=== PATIENT | male | born 1985 | race Caucasian/White ===

== ENCOUNTER 2019-09-22 08:30 | Outpatient (CLI) | payer OTHER, SELFPAY ==
[2019-09-22 08:44] LABS: Basophils Absolute Auto 0.02 K/mm3 (0.00-0.10); Basophils Percent Auto 0.4 % (0.0-1.0); Eosinophils Absolute Auto 0.15 K/mm3 (0.02-0.50); Eosinophils Percent Auto 2.9 % (1.0-6.0); Hematocrit 43.5 % (40.0-54.0); Hemoglobin 15.5 g/dL (14.0-18.0); Immature Granulocyte Absolute 0.01 K/mm3 (0.00-0.00); Immature Granulocyte Percent A 0.2 % (0.0-0.0); Immature Platelet Fraction Pct 3.4 % (1.0-7.0); Lymphocytes Absolute Auto 2.04 K/mm3 (1.10-4.50); Lymphocytes Percent Auto 39.2 % (18.0-42.0); Mean Corpuscular HGB Conc 35.6 g/dL (32.0-36.0); Mean Corpuscular Hemoglobin 31.7 pg (27.0-31.0); Monocytes Absolute Auto 0.38 K/mm3 (0.10-0.90); Monocytes Percent Auto 7.3 % (2.0-11.0); Neutrophils Absolute Auto 2.6 K/mm3 (1.7-7.2); Platelet Count Result 109 K/mm3 (150-420); Red Blood Count 4.89 M/mm3 (4.70-6.10); Red Cell Distribution Width 12.1 % (11.6-14.4); White Blood Count 5.2 K/mm3 (4.8-10.8)
[2019-09-22 08:45] LABS: Add Urine Microscopic? YES; Appearance Urine Clear (Clear); Bilirubin Urine Negative (Negative); Blood Urine Negative (Negative); Color Urine Yellow (Yellow); Glucose Urine UA Negative (Negative); Ketones Urine Negative (Negative); Leukocyte Esterase Ur Negative LEU/UL (Negative); Nitrate Urine Negative (Negative); Protein Urine Trace (Negative); Specific Grav Ur 1.025 (1.010-1.020)
[2019-09-22 09:06] LABS: Bacteria Urine 2+ /hpf; Mucus Urine Few /lpf; RBC Urine 0-2 /hpf (0-2); Squamous Epithelial Cell Urine Few /hpf (Few); WBC Urine 0-3 /hpf (0-3)
[2019-09-22 09:09] LABS: Hemoglobin A1C 7.3 % (<5.7)
[2019-09-22 09:36] LABS: Alanine Aminotransferase 116 U/L (16-63); Albumin Level 3.6 g/dL (3.4-5.0); Alkaline Phosphatase 78 U/L (46-116); Anion Gap 10.8 mmol/L (7-16); Aspartate Amino Transferase 93 U/L (15-37); Bilirubin,Total 1.9 mg/dL (0.00-1.00); Blood Urea Nitrogen 6 mg/dL (7-18); Calcium 8.5 mg/dL (8.5-10.1); Carbon Dioxide 29 mmol/L (21-32); Chloride 104 mmol/L (98-108); Cholesterol 96 mg/dL (0-200); Estimated Glomerular Filt Rate > 60; Glucose 167 mg/dL (70-99); HDL Direct 18 mg/dL (40-60); LDL Cholesterol Calculated 6 mg/dL (<130); Osmolality Calculated 291 mOsm/kg (285-295); Potassium 3.8 mmol/L (3.5-5.1); Sodium 140 mmol/L (136-145); Thyroid Stimulating Hormone 2.28 uIU/mL (0.36-3.74); Total Protein 7.8 g/dL (6.4-8.2); Triglycerides 359 mg/dL (0-150)
== END 2019-09-22 08:31 | disposition home or self-care (01) ==
LOC: CHSLAB 08:35
PROVIDERS: PCP Internal Medicine; Visit Provider Internal Medicine
DX: Z00.00 Encounter for general adult medical examination without abnormal findings (principal); R94.5 Abnormal results of liver function studies; R73.01 Impaired fasting glucose; E78.5 Hyperlipidemia, unspecified
CPT/HCPCS: 36415; 80053; 80061; 81001; 83036; 84443; 85025

== ENCOUNTER 2020-01-29 14:48 | Outpatient (RCR) | payer OTHER, SELFPAY ==
--- NOTE | 2020-01-29 13:44 | PTOPEVAL ---
Thank you for referring Warren Griffin to [facility] [place] [facility] The patient is scheduled to be seen for therapy? __3__x/week for 9 visits. Please review, sign, date and return this plan of care KAYLYNN. I agree with and certify that the following plan of care is medically necessary. Referring Physician Date Admitting Provider: Attending Provider: Ted Guo MD Referring Provider: *PT Outpatient Evaluation Start: 01/29/20 13:01 Freq: Status: Active Protocol: Document 01/29/20 13:01 FABIANA (Rec: 01/29/20 13:37 [email or web address] [id number]) Therapy Assessment Status Assessment Status Assessment Status Evaluation Evaluation Information Problem Diagnosis back pain right L2-3 radiculopathy Onset 01/12/20 Subjective Information pt. reports hx of on/off back Query Text:As Reported By Patient/ pain. He states that he was Family moving a deer out of the joel in December and felt increase in pain. He describes his pain on the right side of the low back and wrapping to the front of the right thigh. He states that the pain is not constant. He recalls no specific activity that increases his pain. He reports that walking on flat ground does not increase his pain. He reports that he has been off work for 2 weeks due to the pain. He states that his goal is to decrease his pain and return to work. 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 saw the chiropractor with Comments little relief. He recieved manipulation and US while at the chiropractor. Pain Assessment Pain Scale Pain Scale Used Numeric (1 - 10) Self Report Pain Assessment R
== END 2020-02-23 11:24 | disposition home or self-care (01) ==
LOC: CHSPT 14:48
PROVIDERS: PCP Internal Medicine; Visit Provider Internal Medicine
DX: M54.9 Dorsalgia, unspecified (principal); M54.16 Radiculopathy, lumbar region
CPT/HCPCS: 97014; 97110; 97161; G0283

== ENCOUNTER 2020-02-01 13:47 | Outpatient (RCR) | payer OTHER, SELFPAY | END 2020-04-23 13:16 | disposition home or self-care (01) | LOC: ANHDMC 13:47 | PROVIDERS: PCP Internal Medicine; Visit Provider Internal Medicine | DX: E11.9 Type 2 diabetes mellitus without complications (principal); Z71.89 Other specified counseling | CPT/HCPCS: G0108 ==

== ENCOUNTER 2020-02-23 07:26 | Outpatient (CLI) | payer OTHER, SELFPAY ==
--- NOTE | ~2020-02-23 | US_ITS ---
US abdomen limited 02/23/2020 08:10 Indication: Cirrhosis of the liver Procedure: High-resolution Limited abdominal ultrasound Comparison: Ultrasound dated 09/29/2013. Findings: There is fatty infiltration of the liver. Limited visualization the pancreas is unremarkabl e. There is normal directional flow in the portal vein. Gallbladder is not identified, possibly surgi jolie absent. Clinically correlate. Common bile duct measures 4.7 mm. IVC is patent. Impression: 1: Fatty infiltration of the liver. Reviewed, dictated and finalized at location B. FINISHER Impression: 1: Fatty infiltration of the liver.
[2020-02-23 07:53] LABS: Basophils Absolute Auto 0.02 K/mm3 (0.00-0.10); Basophils Percent Auto 0.5 % (0.0-1.0); Eosinophils Absolute Auto 0.08 K/mm3 (0.02-0.50); Eosinophils Percent Auto 1.9 % (1.0-6.0); Hematocrit 43.2 % (40.0-54.0); Hemoglobin 14.9 g/dL (14.0-18.0); Immature Granulocyte Absolute 0.01 K/mm3 (0.00-0.00); Immature Granulocyte Percent A 0.2 % (0.0-0.0); Lymphocytes Absolute Auto 1.73 K/mm3 (1.10-4.50); Lymphocytes Percent Auto 41.6 % (18.0-42.0); Mean Corpuscular HGB Conc 34.5 g/dL (32.0-36.0); Mean Corpuscular Hemoglobin 30.9 pg (27.0-31.0); Mean Corpuscular Volume 89.6 fL (78.0-102.0); Mean Platelet Volume 10.4 fl (8.7-11.0); Monocytes Percent Auto 7.2 % (2.0-11.0); Neutrophils Percent Auto 48.6 % (50.0-70.0); Platelet Count Result 101 K/mm3 (150-420); Red Blood Count 4.82 M/mm3 (4.70-6.10); Red Cell Distribution Width 12.1 % (11.6-14.4); White Blood Count 4.2 K/mm3 (4.8-10.8)
[2020-02-23 08:05] LABS: INR 1.1; Prothrombin Time 12.6 Seconds (9.50-12.10)
[2020-02-23 09:29] LABS: Alanine Aminotransferase 83 U/L (16-63); Albumin Level 3.8 g/dL (3.4-5.0); Alkaline Phosphatase 62 U/L (46-116); Anion Gap 10 mmol/L (8-16); Aspartate Amino Transferase 68 U/L (15-37); Bilirubin,Total 2.5 mg/dL (0.00-1.00); Blood Urea Nitrogen 10 mg/dL (7-18); Calcium 8.9 mg/dL (8.5-10.1); Carbon Dioxide 28 mmol/L (21-32); Chloride 104 mmol/L (98-108); Estimated Glomerular Filt Rate > 60; Ferritin 188 ng/mL (26-388); GGT 89 U/L (15-85); Glucose 111 mg/dL (70-99); Iron 138 ug/dL (65-175); Osmolality Calculated 294 mOsm/kg (285-295); Percent Iron Saturation 39 % (12-57); Potassium 3.9 mmol/L (3.5-5.1); Sodium 142 mmol/L (136-145); Total Protein 7.8 g/dL (6.4-8.2)
[2020-02-27 18:26] LABS: Hepatitis B Core Ab Total Nonreactive (Nonreactive)
[2020-02-28 10:53] LABS: Mitochondrial (M2) Ab (IgG) <=20.0 U (<=20.0)
[2020-02-28 10:56] LABS: Actin Antibody (IgG) <20 U (<20)
[2020-02-28 12:03] LABS: Alpha-1-Antitrypsin, QN 150 mg/dL (83-199); Ceruloplasmin 25 mg/dL (18-36)
[2020-02-28 19:36] LABS: Hepatitis B Surface Antibody Nonreactive (Nonreactive); Hepatitis B Surface Antigen Nonreactive (Nonreactive); Hepatitis C Signal to Cutoff 0.02 ratio (<1.00); Hepatitis C Virus Antibody Nonreactive (Nonreactive)
[2020-02-29 07:49] LABS: LKM 1 Antibody <=20.0 U (<=20.0)
[2020-03-01 21:13] LABS: Alpha Fetoprotein Tumor Marker 10.8 ng/mL (<6.1)
== END 2020-02-23 07:27 | disposition home or self-care (01) ==
PROVIDERS: PCP Internal Medicine
DX: K74.60 Unspecified cirrhosis of liver (principal); K75.81 Nonalcoholic steatohepatitis (NASH); R74.8 Abnormal levels of other serum enzymes
CPT/HCPCS: 36415; 76705; 80053; 82103; 82105; 82390; 82728; 82977; 83516; 83520; 83540; 83550; 85025; 85610; 86038; 86376; 86704; 86706

== ENCOUNTER 2020-06-07 12:25 | Outpatient (CLI) | payer OTHER, SELFPAY ==
[2020-06-07 12:42] LABS: Basophils Absolute Auto 0.02 K/mm3 (0.00-0.10); Basophils Percent Auto 0.4 % (0.0-1.0); Eosinophils Absolute Auto 0.09 K/mm3 (0.02-0.50); Eosinophils Percent Auto 1.9 % (1.0-6.0); Hematocrit 43.3 % (40.0-54.0); Hemoglobin 15.2 g/dL (14.0-18.0); Immature Granulocyte Absolute 0.01 K/mm3 (0.00-0.00); Immature Granulocyte Percent A 0.2 % (0.0-0.0); Immature Platelet Fraction Pct 4.3 % (1.0-7.0); Lymphocytes Percent Auto 35.1 % (18.0-42.0); Mean Corpuscular HGB Conc 35.1 g/dL (32.0-36.0); Mean Corpuscular Hemoglobin 30.8 pg (27.0-31.0); Mean Corpuscular Volume 87.7 fL (78.0-102.0); Mean Platelet Volume 10.6 fl (8.7-11.0); Monocytes Absolute Auto 0.39 K/mm3 (0.10-0.90); Monocytes Percent Auto 8.1 % (2.0-11.0); Neutrophils Absolute Auto 2.6 K/mm3 (1.7-7.2); Neutrophils Percent Auto 54.3 % (50.0-70.0); Platelet Count Result 96 K/mm3 (150-420); Red Blood Count 4.94 M/mm3 (4.70-6.10); Red Cell Distribution Width 12.1 % (11.6-14.4); White Blood Count 4.8 K/mm3 (4.8-10.8)
[2020-06-07 13:12] LABS: INR 1.2; Prothrombin Time 12.5 Seconds (9.50-12.10)
[2020-06-07 13:15] LABS: Alanine Aminotransferase 91 U/L (16-63); Albumin Level 3.8 g/dL (3.4-5.0); Alkaline Phosphatase 69 U/L (46-116); Anion Gap 9 mmol/L (8-16); Aspartate Amino Transferase 69 U/L (15-37); Bilirubin,Total 2.6 mg/dL (0.00-1.00); Blood Urea Nitrogen 10 mg/dL (7-18); Calcium 8.6 mg/dL (8.5-10.1); Carbon Dioxide 29 mmol/L (21-32); Chloride 100 mmol/L (98-108); Estimated Glomerular Filt Rate > 60; Glucose 180 mg/dL (70-99); Osmolality Calculated 290 mOsm/kg (285-295); Potassium 3.9 mmol/L (3.5-5.1); Sodium 138 mmol/L (136-145); Total Protein 7.8 g/dL (6.4-8.2)
== END 2020-06-07 12:26 | disposition home or self-care (01) ==
LOC: CHSLAB 12:30
PROVIDERS: PCP Internal Medicine
DX: R94.5 Abnormal results of liver function studies (principal); K74.60 Unspecified cirrhosis of liver
CPT/HCPCS: 36415; 80053; 85025; 85055; 85610

== ENCOUNTER 2020-06-10 15:11 | Outpatient (CLI) | payer OTHER, SELFPAY ==
--- NOTE | ~2020-06-10 | CT_ITS ---
EXAMINATION: CT abdomen pelvis wo con EXAM DATE: 06/10/2020 15:31 INDICATION: Renal stone . Right posterior abdominal pain, gross hematuria or diarrhea. TECHNIQUE: Spiral CT of the abdomen and pelvis was performed without contrast. Axial, coronal and sag ittal images were reviewed. The dose-length product (DLP) for this examination was 1349.77 mGy-cm. The exposure was tailored according to patient size (auto mA exposure control), and iterative reconst ruction (ASIR) was used as additional dose reduction technique. There is no prior study for comparis on. FINDINGS: Right ureteropelvic junction 2 mm stone, without hydronephrosis. Perhaps this could be inte rmittently obstructing causing patient's acute symptoms? No other nephrolithiasis. There is a right r enal cyst measuring 1.5 cm. The prostate is unremarkable. The bladder is unremarkable. There is ci rrhosis with nodular liver contour, and splenomegaly, the spleen measuring 20 cm x 8 cm in greatest a xial dimensions, indicating portal hypertension. There are cholecystectomy clips. There is no retro peritoneal or pelvic lymphadenopathy. Small left inguinal and umbilical fat-containing hernias. Probable identification of a normal appendix. No pericecal inflammation. There is mild scattered colo akash diverticulosis. There is no adjacent inflammatory change to suggest diverticulitis. The stomach and small bowel are unremarkable. There is expected amount of colonic stool. No free intraperitone al gas. There are several small epicardial lymph nodes largest measuring about 5 x 9 mm. These are probably r eactive. The heart is normal in size. There are no pericardial or pleural effusions. The lung bases are unremarkable. There is lucent region within the T10 vertebral body measuring about 1 cm, probab ly with some thickened trabeculation. The margin does appear sclerotic and well-defined, consistent w ith chronic benign finding such as hemangioma. IMPRESSION: 1. Right UPJ 2 mm stone, could be intermittently obstructing given no hydronephrosis at present. 2. Cirrhosis, splenomegaly, portal hypertension. 3. Mild scattered colonic diverticulosis. Reviewed, dictated and finalized at location A. IMPRESSION: 1. Right UPJ 2 mm stone, could be intermittently obstructing given no hydronep hrosis at present. 2. Cirrhosis, splenomegaly, portal hypertension. 3. Mild scattered colonic diverticulosis.
== END 2020-06-10 15:12 | disposition home or self-care (01) ==
PROVIDERS: PCP Internal Medicine; Visit Provider Internal Medicine
DX: N20.0 Calculus of kidney (principal)
CPT/HCPCS: 74176

== ENCOUNTER 2020-06-24 19:35 | Outpatient (CLI) | payer OTHER, SELFPAY ==
--- NOTE | ~2020-06-24 | XR_ITS ---
EXAMINATION: XR abdomen/kub 1V INDICATION: Right ureteral stone and flank pain TECHNIQUE: Supine views of the abdomen were obtained on three radiographs. COMPARISON: CT, 06/10/2020 FINDINGS: The 2 mm right ureteropelvic junction stone described on the comparison CT examination is n ot definitely identified. No urolithiasis is seen. The bowel gas pattern is normal. Cholecystectomy c lips are noted in the right upper quadrant. IMPRESSION: 1. No definite urolithiasis identified. Reviewed, dictated and finalized at location A.
== END 2020-06-24 19:36 | disposition home or self-care (01) ==
LOC: CHSIMG 19:38
PROVIDERS: PCP Internal Medicine; Visit Provider Urology
DX: N20.1 Calculus of ureter (principal)
CPT/HCPCS: 74018

== ENCOUNTER 2020-06-26 08:15 | Emergency (ER) | payer OTHER, SELFPAY ==
--- NOTE | ~2020-06-26 | CT_ITS ---
EXAMINATION: CT abdomen pelvis wo con EXAM DATE: 06/26/2020 09:11 INDICATION: Kidney stone, right flank pain. Hematuria. TECHNIQUE: Spiral CT of the abdomen and pelvis was performed without contrast. Axial, coronal and sag ittal images were reviewed. The dose-length product (DLP) for this examination was 1544.53 mGy-cm. The exposure was tailored according to patient size (auto mA exposure control), and iterative reconst ruction (ASIR) was used as additional dose reduction technique. Comparison is made to prior examinati on from 06/10/2020. FINDINGS: There is mild right-sided hydronephrosis, perinephric fat stranding or there is a proximal ureteral stone measuring 2.5 mm on axial image 128. There is a 1.5 cm right renal cyst. The prostate is unremarkable. Small left inguinal fat-containing hernia. The bladder is collapsed at time of imag ing limiting evaluation. Nodular cirrhotic liver. There is moderate splenomegaly, spleen measuring a bout 20 x 8 cm. This probably indicates portal hypertension. Pancreas and adrenal glands are unremark able. There are cholecystectomy clips. There is no retroperitoneal or pelvic lymphadenopathy. Smal l umbilical fat-containing hernia. The appendix is not positively visualized. There is no pericecal inflammatory change to suggest appe ndicitis. There is mild scattered colonic diverticulosis. There is no adjacent inflammatory change t o suggest diverticulitis. The stomach and small bowel are unremarkable. There is expected amount of colonic stool. No free intraperitoneal gas. The heart is normal in size. There are no pericardia l or pleural effusions. The lung bases are unremarkable. There are no osteoblastic or osteolytic le sions identified. IMPRESSION: 1. Interval migration of previously seen right UPJ 2.5 mm stone about 2 cm into the proximal right u reter. Development of mild obstructive nephropathy. 2. Cirrhosis, splenomegaly, portal hypertension. 3. Mild colonic diverticulosis. Reviewed, dictated and finalized at location A. IMPRESSION: 1. Interval migration of previously seen right UPJ 2.5 mm stone about 2 cm int o the proximal right ureter. Development of mild obstructive nephropathy. 2. Cirrhosis, splenomegaly, portal hypertension. 3. Mild colonic diverticulosis.
[2020-06-26 08:25] VITALS: BP 175/94; PULSE 102; RESP 20; TEMP 36.7; O2SAT 98
--- NOTE | 2020-06-26 08:50 | ED.ABDPAIN ---
HPI - Abdominal Pain General Chief Complaint: Abdominal Pain Stated Complaint: kidney stone Time Seen by Provider: 06/26/20 08:39 Source: patient Mode of arrival: ambulatory Limitations: no limitations History of Present Illness HPI narrative: Patient is 34 years old white male, morbidly obese presents with right flank pain that started 4 weeks ago, CT scan of the abdomen and pelvis 2 weeks ago showed 2 mm stone right side, patient been on tramadol with some relief, pain got worse at 4 AM. Associated with nausea. Patient denies any fever, chills, vomiting, diarrhea, constipation Related Data Home Medications Medication Instructions Recorded Confirmed fluticasone propionate INTRANASAL 06/26/20 06/26/20 lisinopril-hydrochlorothiazide tablet 06/26/20 metformin mg PO 06/26/20 montelukast mg 06/26/20 nortriptyline 06/26/20 tramadol mg 06/26/20 verapamil mg PO 06/26/20 Allergies Allergy/AdvReac Type Severity Reaction Status Date / Time cefaclor Allergy Unknown Hives Verified 06/26/20 08:21 Penicillins Allergy Unknown Hives Verified 06/26/20 08:21 Review of Systems Review of Systems: Narrative: CONSTITUTIONAL: Denies fever, chills, or sweats. EYES: Denies visual changes, redness, or discharge. ENT: Denies rhinorrhea, congestion, sore throat, or otalgia. CARDIOVASCULAR: Denies chest pain, palpitations, or edema. RESPIRATORY: Denies cough or dyspnea. GASTROINTESTINAL: Denies abdominal pain, nausea, vomiting, or diarrhea. GENITOURINARY: Denies dysuria or hematuria. SKIN: Denies rash or itching. MUSCULOSKELETAL: Denies back pain, joint pain, or myalgia. NEUROLOGIC: Denies headache, numbness, or weakness. PSYCHIATRIC: Denies anxiety or depression. PMFSH Social History Social History Smoking status: Never smoker Alcohol intake: never Exam Narrative: Exam Narrative: General appearance: Well-developed, well-nourished, looks comfortable Skin: Normal color Head: Normocephalic, nontraumatic Eyes: Clear conjunctiva ENT: Oropharynx normal, ears normal, nose normal Neck: Supple, nontender Chest and respiratory: Airway patent, no respiratory distress, no accessory muscle use Heart: Regular rate/rhythm Abdomen: Soft, moderate tenderness right flank, no bruises, no swelling or rash, no organomegaly, quiet bowel sounds Vascular: Normal peripheral pulses, normal capillary refill. Musculoskeletal: Normal range of motion, nontender back Neurologic: Alert and oriented ?3, COFFEE HOST is normal as tested, no gross motor deficit Course Course Emergency Course: Improving Vital Signs Vital signs: Vital Signs Temperature 36.7 C 06/26/20 08:25 Pulse Rate 102 H 06/26/20 08:25 Respiratory Rate 20 06/26/20 08:25 Blood Pressure 175/94 H 06/26/20 08:25 Pulse Oximetry 98 06/26/20 08:25 Temperature 36.7 C 06/26/20 08:25 Pulse Rate 102 H 06/26/20 08:25 Respiratory Rate 20 06/26/20 08:25 Blood Pressure 175/94 H 06/26/20 08:25 Pulse Oximetry 98 06/26/20 08:25 MDM - Abdominal Pain MDM Narrative Medical decision making narrative: Right kidney stone is my concern, CT abdomen and pelvis without contrast, labs, IV fluid, IV Dilaudid and Zofran ordered. Further plan to follow Differential Diagnosis Differential diagnosis: Likely calculus of kidney, constipation and diverticulitis Lab Data Result diagrams: 06/26/20 08:39 06/26/20 08:39 Labs: Lab Results 06/26/20 06/26/20 06/26/20 Range/Units 08:39 08:39 08:39 WBC 5.4 (4.5-10.0) K/mm3 RBC 4.80 (4.6-6.20) M/mm3 Hgb 14.6 (14.0-18.0) g/dL Hct 41.6 L (42.0-52.0) % MCV 86.7
[2020-06-26 08:55] LABS: Basophils Percent Auto 0.4 % (0.2-1.2); Eosinophils Absolute Auto 0.2 K/mm3 (0-0.3); Eosinophils Percent Auto 2.9 % (0-4.4); Hematocrit 41.6 % (42.0-52.0); Hemoglobin 14.6 g/dL (14.0-18.0); Immature Granulocyte Absolute 0.02 K/mm3 (0.00-0.031); Immature Granulocyte Percent A 0.4 % (0-0.5); Lymphocytes Absolute Auto 1.59 K/mm3 (0.9-3.2); Lymphocytes Percent Auto 29.2 % (18.3-44.2); Mean Corpuscular HGB Conc 35.1 g/dl (32-36); Mean Corpuscular Hemoglobin 30.4 pg (26-34); Mean Corpuscular Volume 86.7 fl (80-100); Mean Platelet Volume 10.5 fl (7.4-10.4); Monocytes Absolute Auto 0.6 K/mm3 (0.1-0.6); Monocytes Percent Auto 11.2 % (2.6-8.5); Neutrophils Percent Auto 55.9 % (45.5-73.1); Platelet Count Result 96 k/mm3 (150-375); Red Cell Distribution Width 12.2 % (11.5-14.5); White Blood Count 5.4 K/mm3 (4.5-10.0)
[2020-06-26 09:04] LABS: Add Urine Microscopic? YES; Appearance Urine Cloudy (Clear); Bilirubin Urine Negative (Negative); Blood Urine 3+ (Negative); Calcium Oxalate Crystals Urine Present /hpf; Color Urine Amber (Yellow); Glucose Urine UA Negative (Negative); Ketones Urine Negative (Negative); Leukocyte Esterase Ur Negative LEU/UL (Negative); Mucus Urine Heavy /lpf; Nitrate Urine Negative (Negative); Protein Urine 2+ mg/dL (Negative); RBC Urine >75 /hpf (0-2); Specific Grav Ur 1.024 (1.001-1.035); Squamous Epithelial Cell Urine Rare /hpf (Few)
[2020-06-26 09:07] LABS: Anion Gap 5 mmol/L (8-16); Blood Urea Nitrogen 9 mg/dL (9-20); Calcium 8.6 mg/dL (8.4-10.2); Carbon Dioxide 30 mmol/L (22-30); Chloride 105 mmol/L (98-107); Estimated CRCL calculation 194 ml/min; Estimated Glomerular Filt Rate > 60; Glucose 127 mg/dL (75-110); Sodium 140 mmol/L (137-145)
[2020-06-26 09:15] LABS: Alanine Aminotransferase 70 U/L (4-50); Albumin Level 4.2 g/dL (3.5-5.1); Alkaline Phosphatase 60 U/L (38-126); Aspartate Amino Transferase 85 U/L (17-59); Bilirubin,Total 2.2 mg/dL (0.2-1.3); Lipase 100 U/L (23-300)
[2020-06-26] MEDS: KETOROLAC 30 MG/ML VIAL (*BKC) IV PUSH (11:25)
[2020-06-26] MEDS: TAMSULOSIN HCL 0.4 MG CAPSULE PO (12:45)
[2020-06-26 13:05] VITALS: BP 147/90; PULSE 99; RESP 16
== END 2020-06-26 13:05 | disposition home or self-care (01) ==
PROVIDERS: Emergency Provider Emergency Medicine; PCP Internal Medicine
DX: N13.8 Other obstructive and reflux uropathy (principal); N20.1 Calculus of ureter; E66.01 Morbid (severe) obesity due to excess calories; Z68.42 Body mass index [BMI] 45.0-49.9, adult; K57.90 Diverticulosis of intestine, part unspecified, without perforation or abscess without bleeding; K74.60 Unspecified cirrhosis of liver; K76.6 Portal hypertension; R16.1 Splenomegaly, not elsewhere classified
CPT/HCPCS: 36415; 74176; 80048; 80076; 81001; 83690; 85025; 85055; 87086; 87088; 96374; 99284; A9270; J1885

== ENCOUNTER 2020-07-02 15:12 | Outpatient (CLI) | payer OTHER, SELFPAY ==
[2020-07-02 16:42] LABS: SARS-CoV-2 RNA PCR Negative (Negative)
== END 2020-07-02 15:13 | disposition home or self-care (01) ==
LOC: CHSLAB 15:15
PROVIDERS: PCP Internal Medicine; Visit Provider Urology
DX: Z01.818 Encounter for other preprocedural examination (principal); Z20.822 Contact with and (suspected) exposure to COVID-19
CPT/HCPCS: C9803; U0003; U0005

== ENCOUNTER 2020-07-04 01:26 | Day surgery (SDC) | payer OTHER, SELFPAY ==
[2020-07-02 11:31] VITALS: BMI 46.7
[2020-07-04] VITALS (12 sets, daily range): BP systolic 135–167; BP diastolic 81–106; PULSE 96–103; RESP 14–20; TEMP 36.6–36.8; O2SAT 95–100
--- NOTE | ~2020-07-04 | XR_ITS ---
EXAMINATION: XR retrograde pyelogram RT EXAM DATE: 07/04/2020 07:56 INDICATION: Right-sided stone extraction. TECHNIQUE: Fluoroscopy used during XR retrograde pyelogram RT performed by Dr. Warren Ornelas MD . Total fluoroscopic time of 0.8 minutes. A total of 56 images obtained for the exam. The DAP for this procedure was 2197 radcm2. Cine run(s) available for review. FINDINGS: The right ureter was cannulated and injected. No focal ureteral strictures. Reportedly sto ne was extracted. Correlate with procedure note. IMPRESSION: Fluoroscopy used during XR retrograde pyelogram RT. Reviewed, dictated and finalized at location A.
[2020-07-04] MEDS: LACTATED RINGERS 1,000 ML 30 ML IV CONT (06:33)
--- NOTE | 2020-07-04 06:37 | ECG_ITS ---
Measurements Intervals [place] Rate: 97 P: 65 HI: 143 QRS: 60 QRSD: 108 T: 61 QT: 389 QTc: 494 Interpretive Statements SINUS RHYTHM INCOMPLETE RIGHT BUNDLE BRANCH BLOCK BORDERLINE ECG Electronically Signed On 07-04-2020 7:03:34 CDT by True Lewis D.O.
[2020-07-04 06:44] LABS: Glucose Point of Care 143 (65-105)
--- NOTE | 2020-07-04 06:49 | P.PNAN_ITS ---
Anes - Initial Pre Proc Eval Procedure: Operation Date: 07/04/20 07:30 Proposed Procedures p Cystoscopy, Right Ureteroscopy, Right Stone Extraction, Possible Right Stent Placement - Warren Ornelas MD Date/Time: 07/04/20 06:49 Surgeon: Warren Ornelas MD Pre Op Diagnosis: right ureteral stones Patient Data Age: 34 Gender: M Height: 6 ft Weight: 160.8 kg Last Vital Signs Temp 36.6 C 07/04/20 06:34 Pulse 96 07/04/20 06:34 Resp 16 07/04/20 06:34 BP 146/96 H 07/04/20 06:34 Pulse Ox 97 07/04/20 06:34 Allergies Allergy/AdvReac Type Severity Reaction Status Date / Time cefaclor Allergy Intermediate Hives Verified 07/04/20 06:12 Penicillins Allergy Intermediate Hives Verified 07/04/20 06:12 Home Medications Medication Instructions Recorded Confirmed Type fluticasone propionate 1 spray INTRANASAL DAILY 06/26/20 07/04/20 History lisinopril-hydrochlorothiazide 1 tablet PO DAILY 06/26/20 07/04/20 History metformin 500 mg PO DAILY 06/26/20 07/04/20 History montelukast 10 mg PO DAILY 06/26/20 07/04/20 History nortriptyline 25 mg PO DAILY 06/26/20 07/04/20 History tamsulosin [Flomax] 0.4 mg PO DAILY #10 cap 06/26/20 07/04/20 Rx verapamil 240 mg PO DAILY 06/26/20 07/04/20 History metformin 1,000 mg PO HS 07/02/20 07/04/20 History Laboratory Tests 07/04/20 06:41 POC Capillary Glucose 143 mg/dl H mg/dl (65-105) Patient hx anesthesia problems: none Family hx anesthesia problems: none [facility] Past Medical History Medical History (Updated 07/04/20 @ 06:50 by Roberto Carlos Nicole MD) Diabetes HTN (hypertension) Morbid obesity HAY (obstructive sleep apnea) Social History Social History Smoking status: Never smoker Alcohol intake: never Alcohol use details: RARE Substance use: never Substance use type: does not use Living arrangements: with family Spiritual care concerns: No Anes - Eval Final PreProcedure Day of Procedure 07/04/20 06:49 Patient weight: morbidly obese Heart: regular rate and rhythm Lungs: clear to auscultation Airway: Mallampati scale class IV Neurological: alert and oriented Last oral intake: >/= 8 hours ASA classification: III Emergent: no Anesthetic plan: proceed Anesthesia type and monitoring: general LMA and standard monitoring Informed Consent: The patient's anesthetic plan and its attendant risks and benefits were discussed with the patient/family/POA. Questions were solicited and answers provided to the satisfaction of the patient/family/POA.
--- NOTE | 2020-07-04 06:51 | WPDHPUPDATE1 ---
History and Physical Update Update Date/Time: 07/04/20 06:51 History and Physical has been reviewed, including an updated exam of the patient. There are NO changes in the patient's condition. Risks, benefits, and alternatives have been discussed and questions answered. Patient agrees to proceed with procedure.
[2020-07-04] MEDS: levoFLOXacin 500 MG/D5W 100 ML 500 MG/100 ML BAG 100 MG IVPB (07:23)
[2020-07-04] MEDS: LIDOCAINE HCL 2% GEL UROJET 10 ML PKG MUCOUS MEM (07:33)
[2020-07-04] MEDS: KETOROLAC 30 MG/ML VIAL (*BKC) IV PUSH (07:48)
--- NOTE | 2020-07-04 07:51 | P.OP_ITS ---
Procedure Note - Detailed Date of procedure: 07/04/20 Pre-op diagnosis: Right ureteral stones Post-op diagnosis: other (1. Right ureteral stone 2. Urethral meatal stenosis) Procedure performed: 1. Cystoscopy with urethral dilatation 2. Right retrograde pyelogram 3. Right ureteroscopy with stone extraction Description of procedure: The patient was brought to the operative suite where he is prepped and draped in a routine sterile fashion while in the dorsal lithotomy position after the uneventful induction of a general LMA anesthetic. I 1st had a dilate a meatal stricture from 14-24 F. Then. a 19F rigid cystoscope was placed in the bladder. There are no additional urethral strictures. His prostatic urethra measures, approximately, 1.5cm with no median lobe enlargement. The bladder mucosa was endoscopically normal without hyperemia or neoplasm. There was a single, orthotopic ureteral orifice bilaterally. A right retrograde pyelogram via an angiographic catheter reveals persistent stone in the right proximal ureter. A 0.035 glidewire was advanced into the right renal pelvis under fluoroscopy. The distal ureter was dilated with an 8F/10F ureteral dilator. Ureteroscopy was undertaken with a 7.5 F flexible u reteoscope and the stone was extracted with ease using a 1.9F Escape disposable stone basket. Due to the ease of this manipulation I opted not to place a ureteral stent. The patient's bladder was emptied and was taken to the recovery room having tolerated this procedure well. Anesthesia: GLMA Surgeon: Warren Ornelas MD Training And Development Coordinator: None Estimated blood loss (mL): 0 Drains: No Packing: No Pathology: yes (Right ureteral stone) Complications: No immediate complications Condition: stable Disposition: PACU
[2020-07-04 08:02] LABS: Glucose Point of Care 127 (65-105)
[2020-07-04] MEDS: fentaNYL CITRATE INJ (*CRX) 100 MCG/2 ML VIAL 25 MCG IV PUSH ×3 (08:28→08:36)
== END 2020-07-04 09:55 | disposition home or self-care (01) ==
PROVIDERS: PCP Internal Medicine; Visit Provider Urology
PROC: (CPT 52352; principal; 2020-07-04 07:30)
DX: N20.1 Calculus of ureter (principal); N35.911 Unspecified urethral stricture, male, meatal; I10 Essential (primary) hypertension; E11.9 Type 2 diabetes mellitus without complications; G47.33 Obstructive sleep apnea (adult) (pediatric); E66.01 Morbid (severe) obesity due to excess calories; Z68.42 Body mass index [BMI] 45.0-49.9, adult
CPT/HCPCS: 52352; 74420; 82365; 82948; 88300; 93005; A9270; C1758; C1769; J1100; J1885; J1956; J2250; J2405; J2704; J3010; J7120; Q9966

== ENCOUNTER 2020-07-29 12:44 | Outpatient (CLI) | payer OTHER, SELFPAY ==
[2020-07-29 13:56] LABS: Influenza A QL RT-PCR Negative (Negative); Influenza B QL RT-PCR Negative (Negative); SARS-CoV-2 RNA PCR Positive (Negative)
== END 2020-07-29 12:45 | disposition home or self-care (01) ==
LOC: CHSLAB 12:46
PROVIDERS: PCP Internal Medicine; Visit Provider Internal Medicine
DX: U07.1 COVID-19 (principal)
CPT/HCPCS: 87502; C9803; U0003; U0005

== ENCOUNTER 2020-08-05 17:27 | Outpatient (CLI) | payer OTHER, SELFPAY ==
--- NOTE | ~2020-08-05 | XR_ITS ---
XR chest 2V DATE: 08/05/2020 18:02 INDICATION: Cough, shortness of breath. Covid-positive. TECHNIQUE: 2 views COMPARISON: 05/12/2017 two-view chest FINDINGS: Heart size is normal. No pulmonary infiltrate or consolidation, pleural effusion or pulmona ry vascular congestion or pneumothorax. IMPRESSION: No active cardiac pulmonary disease Reviewed, dictated and finalized at location A.
[2020-08-05 17:57] LABS: Basophils Absolute Auto 0.01 K/mm3 (0.00-0.10); Basophils Percent Auto 0.3 % (0.0-1.0); Eosinophils Absolute Auto 0.03 K/mm3 (0.02-0.50); Eosinophils Percent Auto 0.9 % (1.0-6.0); Hematocrit 41.6 % (40.0-54.0); Hemoglobin 14.3 g/dL (14.0-18.0); Immature Granulocyte Absolute 0.01 K/mm3 (0.00-0.00); Immature Granulocyte Percent A 0.3 % (0.0-0.0); Lymphocytes Absolute Auto 1.51 K/mm3 (1.10-4.50); Mean Corpuscular HGB Conc 34.4 g/dL (32.0-36.0); Mean Corpuscular Hemoglobin 30.8 pg (27.0-31.0); Mean Corpuscular Volume 89.7 fL (78.0-102.0); Mean Platelet Volume 10.7 fl (8.7-11.0); Monocytes Absolute Auto 0.32 K/mm3 (0.10-0.90); Monocytes Percent Auto 9.3 % (2.0-11.0); Neutrophils Absolute Auto 1.6 K/mm3 (1.7-7.2); Neutrophils Percent Auto 45.2 % (50.0-70.0); Platelet Count Result 83 K/mm3 (150-420); Red Blood Count 4.64 M/mm3 (4.70-6.10); Red Cell Distribution Width 12.5 % (11.6-14.4); White Blood Count 3.4 K/mm3 (4.8-10.8)
[2020-08-05 18:38] LABS: Alanine Aminotransferase 73 U/L (16-63); Albumin Level 3.6 g/dL (3.4-5.0); Alkaline Phosphatase 76 U/L (46-116); Anion Gap 10 mmol/L (8-16); Aspartate Amino Transferase 69 U/L (15-37); Bilirubin,Total 2.5 mg/dL (0.00-1.00); Blood Urea Nitrogen 13 mg/dL (7-18); CRP 2.5 mg/dL (0.0-0.9); Calcium 8.3 mg/dL (8.5-10.1); Carbon Dioxide 29 mmol/L (21-32); Chloride 99 mmol/L (98-108); Estimated Glomerular Filt Rate > 60; Glucose 124 mg/dL (70-99); Osmolality Calculated 287 mOsm/kg (285-295); Potassium 3.8 mmol/L (3.5-5.1); Sodium 138 mmol/L (136-145); Total Protein 7.7 g/dL (6.4-8.2)
== END 2020-08-05 17:28 | disposition home or self-care (01) ==
LOC: CHSLAB 17:30
PROVIDERS: PCP Internal Medicine; Visit Provider Internal Medicine
DX: U07.1 COVID-19 (principal)
CPT/HCPCS: 36415; 71046; 80053; 85025; 86140

== ENCOUNTER 2020-09-03 16:46 | Outpatient (CLI) | payer OTHER, SELFPAY ==
--- NOTE | ~2020-09-03 | XR_ITS ---
XR foot RT min 3V DATE: 09/03/2020 17:12 INDICATION: Right foot pain behind third and fourth toes. Stepped on metal plug. TECHNIQUE: 4 views COMPARISON: None FINDINGS: There is evidence of an old ununited corner fracture of the lateral base of the proximal ph alanx of the great toe, with smooth apposing ununited fracture margins. There is mild osteoarthritis at the first metatarsophalangeal joint. Os tibiale externum. No fracture, dislocation, periosteal reaction or bone destruction. There is plantar and posterior calcaneal enthesopathy. 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
== END 2020-09-03 16:47 | disposition home or self-care (01) ==
LOC: CHSIMG 16:48
PROVIDERS: PCP Internal Medicine; Visit Provider Internal Medicine
DX: M79.671 Pain in right foot (principal)
CPT/HCPCS: 73630

== ENCOUNTER 2020-09-21 10:25 | Outpatient (CLI) | payer OTHER, SELFPAY ==
[2020-09-21 10:43] LABS: Add Urine Microscopic? YES; Appearance Urine Clear (Clear); Bilirubin Urine 1+ (Negative); Blood Urine Negative (Negative); Color Urine Yellow (Yellow); Glucose Urine UA Negative (Negative); Ketones Urine Negative (Negative); Leukocyte Esterase Ur Negative (Negative); Nitrate Urine Negative (Negative); Protein Urine Trace (Negative); Urobilinogen Urine >=8.0 mg/dL (0.2-1.0); pH Urine 7.5 (5.0-8.0)
[2020-09-21 10:44] LABS: Basophils Absolute Auto 0.03 K/mm3 (0.00-0.10); Basophils Percent Auto 0.6 % (0.0-1.0); Eosinophils Absolute Auto 0.16 K/mm3 (0.02-0.50); Eosinophils Percent Auto 3.4 % (1.0-6.0); Hematocrit 43.4 % (40.0-54.0); Hemoglobin 15.2 g/dL (14.0-18.0); Immature Granulocyte Absolute 0.01 K/mm3 (0.00-0.00); Immature Granulocyte Percent A 0.2 % (0.0-0.0); Immature Platelet Fraction Pct 2.9 % (1.0-7.0); Mean Corpuscular Hemoglobin 30.6 pg (27.0-31.0); Mean Corpuscular Volume 87.5 fL (78.0-102.0); Mean Platelet Volume 10.7 fl (8.7-11.0); Monocytes Absolute Auto 0.36 K/mm3 (0.10-0.90); Monocytes Percent Auto 7.6 % (2.0-11.0); Neutrophils Absolute Auto 2.4 K/mm3 (1.7-7.2); Neutrophils Percent Auto 50.2 % (50.0-70.0); Platelet Count Result 89 K/mm3 (150-420); Red Blood Count 4.96 M/mm3 (4.70-6.10); Red Cell Distribution Width 12.2 % (11.6-14.4); White Blood Count 4.7 K/mm3 (4.8-10.8)
[2020-09-21 10:50] LABS: Bacteria Urine Trace /hpf; Creatinine Urine 247.53 mg/dL (40-278); MALB Creatinine Ratio 21.8 mg/g (0-30); Mucus Urine Few /lpf; RBC Urine 0-2 /hpf (0-2); Squamous Epithelial Cell Urine Few /hpf (Few); WBC Urine 0-3 /hpf (0-3)
[2020-09-21 10:53] LABS: Hemoglobin A1C 6.6 % (<5.7)
[2020-09-21 11:26] LABS: Alanine Aminotransferase 103 U/L (16-63); Albumin Level 3.7 g/dL (3.4-5.0); Alkaline Phosphatase 64 U/L (46-116); Anion Gap 11 mmol/L (8-16); Bilirubin,Total 2.8 mg/dL (0.00-1.00); Blood Urea Nitrogen 7 mg/dL (7-18); Calcium 8.4 mg/dL (8.5-10.1); Carbon Dioxide 28 mmol/L (21-32); Chloride 105 mmol/L (98-108); Cholesterol 91 mg/dL (0-200); Estimated Glomerular Filt Rate > 60; Glucose 122 mg/dL (70-99); HDL Direct 22 mg/dL (40-60); LDL Cholesterol Calculated 31 mg/dL (<130); Magnesium 1.9 mg/dL (1.8-2.4); Osmolality Calculated 297 mOsm/kg (285-295); Sodium 144 mmol/L (136-145); Thyroid Stimulating Hormone 1.98 uIU/mL (0.36-3.74); Total Protein 7.5 g/dL (6.4-8.2); Triglycerides 188 mg/dL (0-150)
[2020-09-21 11:58] LABS: Aspartate Amino Transferase 90 U/L (15-37)
[2020-09-25 19:01] LABS: Alpha Fetoprotein Tumor Marker 10.3 ng/mL (<6.1)
== END 2020-09-21 10:26 | disposition home or self-care (01) ==
LOC: CHSLAB 10:28
PROVIDERS: PCP Internal Medicine; Visit Provider Internal Medicine
DX: Z00.00 Encounter for general adult medical examination without abnormal findings (principal); E11.9 Type 2 diabetes mellitus without complications; K74.60 Unspecified cirrhosis of liver
CPT/HCPCS: 36415; 80053; 80061; 81001; 82043; 82105; 83036; 83735; 84443; 85025; 85055; 86769

== ENCOUNTER 2020-10-03 15:28 | Outpatient (RCR) | payer OTHER, SELFPAY | END 2020-12-23 11:45 | disposition home or self-care (01) | LOC: ANHDMC 15:28 | PROVIDERS: PCP Internal Medicine; Visit Provider Internal Medicine | DX: E11.9 Type 2 diabetes mellitus without complications (principal); Z71.89 Other specified counseling | CPT/HCPCS: G0108 ==

== ENCOUNTER 2020-10-21 08:49 | Outpatient (CLI) | payer OTHER, SELFPAY ==
--- NOTE | ~2020-10-21 | US_ITS ---
EXAMINATION: US abdomen limited DATE: 10/21/2020 09:12 INDICATION: Cirrhosis of the liver TECHNIQUE: Multiple grayscale and Doppler ultrasound images of the abdomen were obtained. COMPARISON: 02/23/2020; CT, 06/26/2020 FINDINGS: Bowel gas obscures visualization of the pancreas. The visualized portions of the pancreas a re unremarkable. The liver demonstrates increased echogenicity and coarsened echotexture. The liver s urface is nodular. Normal hepatopetal flow in the main portal vein. The gallbladder is surgically abs ent. The normal common bile duct measures 5 mm. IMPRESSION: 1. Sonographic findings consistent with cirrhosis. Reviewed, dictated and finalized at location A.
== END 2020-10-21 08:50 | disposition home or self-care (01) ==
LOC: CHSIMG 08:50
PROVIDERS: PCP Internal Medicine
DX: K75.81 Nonalcoholic steatohepatitis (NASH) (principal)
CPT/HCPCS: 76705

== ENCOUNTER 2021-02-14 09:51 | Outpatient (CLI) | payer OTHER, SELFPAY ==
[2021-02-14 10:46] LABS: Basophils Absolute Auto 0.03 K/mm3 (0.00-0.10); Basophils Percent Auto 0.7 % (0.0-1.0); Eosinophils Percent Auto 2.3 % (1.0-6.0); Hematocrit 44.9 % (40.0-54.0); Hemoglobin 16.3 g/dL (14.0-18.0); Immature Granulocyte Absolute 0.02 K/mm3 (0.00-0.00); Immature Granulocyte Percent A 0.5 % (0.0-0.0); Immature Platelet Fraction Pct 2.6 % (1.0-7.0); Lymphocytes Absolute Auto 1.59 K/mm3 (1.10-4.50); Lymphocytes Percent Auto 37.3 % (18.0-42.0); Mean Corpuscular HGB Conc 36.3 g/dL (32.0-36.0); Mean Corpuscular Hemoglobin 32.3 pg (27.0-31.0); Mean Corpuscular Volume 89.1 fL (78.0-102.0); Mean Platelet Volume 10.4 fl (8.7-11.0); Neutrophils Absolute Auto 2.2 K/mm3 (1.7-7.2); Neutrophils Percent Auto 52.2 % (50.0-70.0); Platelet Count Result 97 K/mm3 (150-420); Red Blood Count 5.04 M/mm3 (4.70-6.10); Red Cell Distribution Width 11.9 % (11.6-14.4); White Blood Count 4.3 K/mm3 (4.8-10.8)
[2021-02-14 10:57] LABS: INR 1.3; Prothrombin Time 13.5 Seconds (9.50-12.10)
[2021-02-14 11:46] LABS: Albumin Level 3.5 g/dL (3.4-5.0); Alkaline Phosphatase 84 U/L (46-116); Anion Gap 9 mmol/L (8-16); Bilirubin,Total 2.5 mg/dL (0.00-1.00); Blood Urea Nitrogen 6 mg/dL (7-18); Carbon Dioxide 27 mmol/L (21-32); Chloride 103 mmol/L (98-108); Estimated Glomerular Filt Rate > 60; Glucose 304 mg/dL (70-99); Osmolality Calculated 296 mOsm/kg (285-295); Potassium 3.7 mmol/L (3.5-5.1); Sodium 139 mmol/L (136-145); Total Protein 7.5 g/dL (6.4-8.2)
[2021-02-14 12:17] LABS: Alanine Aminotransferase 93 U/L (16-63); Aspartate Amino Transferase 78 U/L (15-37)
[2021-02-18 22:16] LABS: Alpha Fetoprotein Tumor Marker 13.3 ng/mL (<6.1)
== END 2021-02-14 09:52 | disposition home or self-care (01) ==
LOC: CHSLAB 09:57
PROVIDERS: PCP Internal Medicine
DX: K74.60 Unspecified cirrhosis of liver (principal)
CPT/HCPCS: 36415; 80053; 82105; 85025; 85055; 85610

== ENCOUNTER 2021-04-02 17:41 | Outpatient (CLI) | payer OTHER, SELFPAY ==
--- NOTE | ~2021-04-02 | XR_ITS ---
EXAMINATION: XR shoulder RT min 2V INDICATION: Right shoulder pain TECHNIQUE: Four views of the right shoulder are submitted. COMPARISON: None FINDINGS: Normal alignment. No fracture. Glenohumeral and acromioclavicular joint spaces are normal. Soft tissues are unremarkable. IMPRESSION: 1. No acute osseous abnormality. Reviewed, dictated and finalized at location F. TELEMETRY
[2021-04-02 18:12] LABS: Hematocrit 46.5 % (40.0-54.0); Hemoglobin 16.6 g/dL (14.0-18.0); Immature Platelet Fraction Pct 3.9 % (1.0-7.0); Mean Corpuscular HGB Conc 35.7 g/dL (32.0-36.0); Mean Corpuscular Hemoglobin 31.8 pg (27.0-31.0); Mean Corpuscular Volume 89.1 fL (78.0-102.0); Mean Platelet Volume 10.5 fl (8.7-11.0); Platelet Count Result 92 K/mm3 (150-420); Red Blood Count 5.22 M/mm3 (4.70-6.10); White Blood Count 4.7 K/mm3 (4.8-10.8)
[2021-04-02 18:14] LABS: Appearance Urine Clear (Clear); Bilirubin Urine Negative (Negative); Color Urine Yellow (Yellow); Glucose Urine UA Negative (Negative); Ketones Urine Trace (Negative); Leukocyte Esterase Ur Negative (Negative); Nitrate Urine Negative (Negative); Protein Urine 1+ (Negative); pH Urine 6.5 (5.0-8.0)
[2021-04-02 18:22] LABS: Hemoglobin A1C 8.7 % (<5.7)
[2021-04-02 18:26] LABS: Alanine Aminotransferase 80 U/L (16-63); Albumin Level 3.7 g/dL (3.4-5.0); Alkaline Phosphatase 81 U/L (46-116); Anion Gap 12 mmol/L (8-16); Aspartate Amino Transferase 43 U/L (15-37); Bilirubin,Total 3.5 mg/dL (0.00-1.00); Blood Urea Nitrogen 13 mg/dL (7-18); Calcium 8.6 mg/dL (8.5-10.1); Carbon Dioxide 24 mmol/L (21-32); Chloride 100 mmol/L (98-108); Creatinine Urine 234.49 mg/dL (40-278); Estimated Glomerular Filt Rate > 60; Glucose 178 mg/dL (70-99); Osmolality Calculated 286 mOsm/kg (285-295); Potassium 3.9 mmol/L (3.5-5.1); Sodium 136 mmol/L (136-145); Total Protein 8.3 g/dL (6.4-8.2)
[2021-04-02 18:28] LABS: INR 1.2; Partial Thromboplastin Time 31.5 SEC (23.90-30.70); Prothrombin Time 13.1 Seconds (9.50-12.10)
[2021-04-02 18:49] LABS: Add Urine Microscopic? YES; Blood Urine Trace-lysed (Negative); Squamous Epithelial Cell Urine Rare /hpf (Few); WBC Urine 0-3 /hpf (0-3)
[2021-04-02 18:50] LABS: Bacteria Urine Trace /hpf
[2021-04-02 18:51] LABS: MALB Creatinine Ratio 63.5 mg/g (0-30)
[2021-04-07 16:57] LABS: Alpha Fetoprotein Tumor Marker 13.8 ng/mL (<6.1)
== END 2021-04-02 17:42 | disposition home or self-care (01) ==
PROVIDERS: PCP Internal Medicine; Visit Provider Internal Medicine
DX: R04.0 Epistaxis (principal); K74.60 Unspecified cirrhosis of liver; M25.511 Pain in right shoulder; E11.9 Type 2 diabetes mellitus without complications
CPT/HCPCS: 36415; 73030; 80053; 81001; 82043; 82105; 83036; 85027; 85055; 85610; 85730

== ENCOUNTER 2021-05-26 11:35 | Outpatient (CLI) | payer OTHER, SELFPAY ==
[2021-05-26 11:51] LABS: Basophils Absolute Auto 0.04 K/mm3 (0.00-0.10); Basophils Percent Auto 0.8 % (0.0-1.0); Eosinophils Absolute Auto 0.14 K/mm3 (0.02-0.50); Eosinophils Percent Auto 2.9 % (1.0-6.0); Hematocrit 45.2 % (40.0-54.0); Hemoglobin 15.8 g/dL (14.0-18.0); Immature Granulocyte Absolute 0.01 K/mm3 (0.00-0.00); Immature Granulocyte Percent A 0.2 % (0.0-0.0); Immature Platelet Fraction Pct 3.2 % (1.0-7.0); Lymphocytes Absolute Auto 1.79 K/mm3 (1.10-4.50); Mean Corpuscular Hemoglobin 31.6 pg (27.0-31.0); Mean Corpuscular Volume 90.4 fL (78.0-102.0); Mean Platelet Volume 10.7 fl (8.7-11.0); Monocytes Absolute Auto 0.39 K/mm3 (0.10-0.90); Monocytes Percent Auto 8.1 % (2.0-11.0); Neutrophils Absolute Auto 2.5 K/mm3 (1.7-7.2); Platelet Count Result 93 K/mm3 (150-420); Red Cell Distribution Width 11.9 % (11.6-14.4); White Blood Count 4.8 K/mm3 (4.8-10.8)
[2021-05-26 11:59] LABS: Add Urine Microscopic? YES; Appearance Urine Clear (Clear); Bilirubin Urine Negative (Negative); Blood Urine Negative (Negative); Color Urine Yellow (Yellow); Glucose Urine UA Negative (Negative); Ketones Urine Negative (Negative); Leukocyte Esterase Ur Negative (Negative); Nitrate Urine Negative (Negative); Protein Urine Negative (Negative); Specific Grav Ur 1.015 (1.010-1.020); pH Urine 6.5 (5.0-8.0)
[2021-05-26 12:04] LABS: Bacteria Urine Trace /hpf; RBC Urine None seen /hpf (0-2); Squamous Epithelial Cell Urine Rare /hpf (Few); WBC Urine None seen /hpf (0-3)
[2021-05-26 12:16] LABS: Alanine Aminotransferase 85 U/L (16-63); Albumin Level 3.7 g/dL (3.4-5.0); Alkaline Phosphatase 71 U/L (46-116); Amylase 20 U/L (25-115); Anion Gap 11 mmol/L (8-16); Aspartate Amino Transferase 67 U/L (15-37); Bilirubin,Total 3.4 mg/dL (0.00-1.00); Blood Urea Nitrogen 8 mg/dL (7-18); Calcium 8.5 mg/dL (8.5-10.1); Carbon Dioxide 28 mmol/L (21-32); Chloride 104 mmol/L (98-108); Estimated Glomerular Filt Rate > 60; Glucose 141 mg/dL (70-99); Lipase 131 U/L (73-393); Osmolality Calculated 296 mOsm/kg (285-295); Sodium 143 mmol/L (136-145); Total Protein 7.6 g/dL (6.4-8.2)
== END 2021-05-26 11:36 | disposition home or self-care (01) ==
LOC: CHSLAB 11:36
PROVIDERS: PCP Internal Medicine; Visit Provider Internal Medicine
DX: R10.9 Unspecified abdominal pain (principal)
CPT/HCPCS: 36415; 80053; 81001; 82150; 83690; 85025; 85055

== ENCOUNTER 2021-05-28 07:54 | Outpatient (CLI) | payer OTHER, SELFPAY ==
--- NOTE | ~2021-05-28 | US_ITS ---
EXAMINATION: US right upper quadrant DATE: 05/28/2021 08:22 INDICATION: Cirrhosis of the liver. TECHNIQUE: Multiple grayscale and Doppler ultrasound images of the abdomen were obtained. COMPARISON: Ultrasound abdomen 10/21/2020 FINDINGS: The visualized portions of the head and body of the pancreas are normal. The liver demonstr ates coarsened echotexture and surface nodularity, consistent with cirrhosis. There is normal flow in main portal vein. The gallbladder is absent. The common duct is normal and measures 5 mm. IMPRESSION: 1. Cirrhosis of the liver. Reviewed, dictated and finalized at location A. EF WORKER IMPRESSION: 1. Cirrhosis of the liver.
[2021-05-28 08:35] LABS: INR 1.3; Prothrombin Time 13.4 Seconds (9.50-12.10)
[2021-06-03 16:21] LABS: Alpha Fetoprotein Tumor Marker 15.4 ng/mL (<6.1)
== END 2021-05-28 07:55 | disposition home or self-care (01) ==
LOC: CHSIMG 07:55
PROVIDERS: PCP Internal Medicine
DX: K74.60 Unspecified cirrhosis of liver (principal)
CPT/HCPCS: 36415; 76705; 82105; 85610

== ENCOUNTER 2021-06-20 10:13 | Outpatient (CLI) | payer OTHER, SELFPAY ==
--- NOTE | ~2021-06-20 | CT_ITS ---
EXAMINATION: CT abdomen pelvis w con DATE: 06/20/2021 11:12 INDICATION: Low abdominal pain. Blood in stool. TECHNIQUE: Computed tomography (CT) of the abdomen and pelvis was performed with 100 mL Omnipaque 350 intravenous contrast. Automated exposure control and iterative reconstruction technique were employe d. The dose-length product was 1695.89 mGy-cm. COMPARISON: CT abdomen and pelvis 06/26/2020 FINDINGS: The visualized portions of the lung bases are clear without pneumonia or pleural effusion. The heart size is normal. No pericardial effusion. The liver demonstrates a nodular surface contour, consistent with cirrhosis. There are changes of cholecystectomy. Paraesophageal varices are noted. Th ere is a paraumbilical portacaval shunt. There is severe splenomegaly. The pancreas and adrenal gland s are normal. There are cysts in the kidneys measuring up to 2.0 cm on the right. There are no dilate d loops of bowel. The appendix is not visualized. There is mild periportal lymphadenopathy. There is no free intraperitoneal fluid. There is mild thoracolumbar spondylosis. IMPRESSION: 1. Cirrhosis of the liver with portal venous hypertension. 2. Chronic mild periportal lymphadenopathy, likely reactive. Reviewed, dictated and finalized at location A.
[2021-06-20 10:30] LABS: Basophils Absolute Auto 0.02 K/mm3 (0.00-0.10); Basophils Percent Auto 0.5 % (0.0-1.0); Eosinophils Percent Auto 2.5 % (1.0-6.0); Hematocrit 45.1 % (40.0-54.0); Hemoglobin 15.6 g/dL (14.0-18.0); Immature Granulocyte Absolute 0.01 K/mm3 (0.00-0.00); Immature Granulocyte Percent A 0.3 % (0.0-0.0); Immature Platelet Fraction Pct 3.1 % (1.0-7.0); Lymphocytes Absolute Auto 1.81 K/mm3 (1.10-4.50); Lymphocytes Percent Auto 45.5 % (18.0-42.0); Mean Corpuscular HGB Conc 34.6 g/dL (32.0-36.0); Mean Corpuscular Hemoglobin 31.3 pg (27.0-31.0); Mean Corpuscular Volume 90.6 fL (78.0-102.0); Mean Platelet Volume 10.1 fl (8.7-11.0); Monocytes Absolute Auto 0.51 K/mm3 (0.10-0.90); Monocytes Percent Auto 12.8 % (2.0-11.0); Neutrophils Absolute Auto 1.5 K/mm3 (1.7-7.2); Neutrophils Percent Auto 38.4 % (50.0-70.0); Platelet Count Result 92 K/mm3 (150-420); Red Blood Count 4.98 M/mm3 (4.70-6.10); Red Cell Distribution Width 12.2 % (11.6-14.4)
[2021-06-20 10:42] LABS: INR 1.2; Partial Thromboplastin Time 31.4 SEC (23.90-30.70); Prothrombin Time 12.4 Seconds (9.50-12.10)
[2021-06-20 10:47] LABS: Estimated Glomerular Filt Rate > 60
[2021-06-20 10:49] LABS: Alanine Aminotransferase 81 U/L (16-63); Alkaline Phosphatase 63 U/L (46-116); Anion Gap 7 mmol/L (8-16); Aspartate Amino Transferase 63 U/L (15-37); Blood Urea Nitrogen 7 mg/dL (7-18); Calcium 8.6 mg/dL (8.5-10.1); Carbon Dioxide 29 mmol/L (21-32); Chloride 103 mmol/L (98-108); Glucose 117 mg/dL (70-99); Osmolality Calculated 287 mOsm/kg (285-295); Sodium 139 mmol/L (136-145); Total Protein 7.7 g/dL (6.4-8.2)
== END 2021-06-20 10:14 | disposition home or self-care (01) ==
LOC: CHSIMG 10:14
PROVIDERS: PCP Internal Medicine; Visit Provider Internal Medicine
DX: R10.9 Unspecified abdominal pain (principal); K62.5 Hemorrhage of anus and rectum
CPT/HCPCS: 36415; 74177; 80053; 85025; 85055; 85610; 85730; Q9967

== ENCOUNTER 2021-08-07 16:16 | Outpatient (RCR) | payer OTHER, SELFPAY ==
--- NOTE | 2021-08-07 17:01 | PTOPEVAL ---
Thank you for referring Warren Griffin to [facility].? The patient is scheduled to be seen for therapy? __2__x/week for 8 visits. Please review, sign, date and return this plan of care KAYLYNN. I agree with and certify that the following plan of care is medically necessary. Referring Physician Date Admitting Provider: Attending Provider: Ted Guo MD Referring Provider: *PT Outpatient Evaluation Start: 08/07/21 16:34 Freq: Status: Active Protocol: Document 08/07/21 16:34 FABIANA (Rec: 08/07/21 17:01 [email or web address] [id number]) Therapy Assessment Status Assessment Status Assessment Status Evaluation Outpatient Past Medical History Neurological History Hx Neurological Disorders No Significant History Cardiovascular History Hx Hypertension Yes Respiratory History Hx Sleep Apnea Yes: WEARS CPAP Gastrointestinal History Hx Cholecystectomy Yes Hx Other Gastrointestinal Disorders Yes: elevated liver enzymes Genitourinary History Hx Kidney Stones Yes Musculoskeletal History Hx Back Pain Yes: BULGING DISCS IN NECK Hematological History Hx Hematological Disorders No Significant History Endocrine History Hx Diabetes Yes HEENT History Hx HEENT Disorders No Significant History Integumentary History Hx Skin Disorders No Significant History Reproductive History Hx Reproductive Disorders No Significant History Psychosocial History Hx Psychiatric Disorders No Significant History Pain History History of Any Previous or Ongoing No Significant History Instance of Pain Anesthesia History Hx Anesthesia Reactions No Significant History Evaluation Information Problem Diagnosis right shoulder pain Onset 08/07/20 Subjective Information Pt. reports having progressing Query Text:As Reported By Patient/ shoulder pain for at least a Family year. He describes pain on the end of the right shoulder. He reports pain is noticable with reaching into the back seat of his vehicle, pulling a blanket at night, or putting on a seatbelt. He states that pain is not constant and most notable with movement. He reports that holding objects out to the side will also increase his pain. He reports that pain will occassionally wake him at night. He reports that his goal is to decrease
== END 2021-09-11 16:57 | disposition home or self-care (01) ==
LOC: CHSPT 16:16
PROVIDERS: PCP Internal Medicine; Visit Provider Internal Medicine
DX: M54.2 Cervicalgia (principal); M47.812 Spondylosis without myelopathy or radiculopathy, cervical region; M25.511 Pain in right shoulder
CPT/HCPCS: 97014; 97110; 97161; G0283

== ENCOUNTER 2021-09-08 10:33 | Outpatient (CLI) | payer OTHER, SELFPAY ==
[2021-09-08 14:21] LABS: SARS-CoV-2 Ag Negative (Negative)
[2021-09-08 14:26] LABS: Influenza A QL RT-PCR Negative (Negative); Influenza B QL RT-PCR Negative (Negative); SARS-CoV-2 RNA PCR Negative (Negative)
== END 2021-09-08 10:34 | disposition home or self-care (01) ==
PROVIDERS: PCP Internal Medicine; Visit Provider Internal Medicine
DX: J02.9 Acute pharyngitis, unspecified (principal); Z20.822 Contact with and (suspected) exposure to COVID-19
CPT/HCPCS: 87426; 87502; C9803; U0003; U0005

== ENCOUNTER 2021-09-27 07:30 | Outpatient (CLI) | payer OTHER, SELFPAY ==
[2021-09-27 07:56] LABS: Hemoglobin A1C 5.2 % (<5.7)
[2021-09-27 08:03] LABS: Alanine Aminotransferase 37 U/L (16-63); Albumin Level 3.8 g/dL (3.4-5.0); Alkaline Phosphatase 59 U/L (46-116); Anion Gap 7 mmol/L (8-16); Aspartate Amino Transferase 27 U/L (15-37); Bilirubin,Total 2.2 mg/dL (0.00-1.00); Blood Urea Nitrogen 10 mg/dL (7-18); Calcium 8.6 mg/dL (8.5-10.1); Carbon Dioxide 31 mmol/L (21-32); Chloride 105 mmol/L (98-108); Estimated Glomerular Filt Rate > 60; Glucose 87 mg/dL (70-99); Osmolality Calculated 294 mOsm/kg (285-295); Potassium 3.8 mmol/L (3.5-5.1); Sodium 143 mmol/L (136-145); Total Protein 7.6 g/dL (6.4-8.2)
== END 2021-09-27 07:31 | disposition home or self-care (01) ==
PROVIDERS: PCP Internal Medicine; Visit Provider Internal Medicine
DX: E11.9 Type 2 diabetes mellitus without complications (principal)
CPT/HCPCS: 36415; 80053; 83036

== ENCOUNTER 2021-10-13 11:11 | Outpatient (CLI) | payer OTHER, SELFPAY ==
[2021-10-13 11:50] LABS: SARS-CoV-2 Ag Positive (Negative)
[2021-10-13 12:17] LABS: SARS-CoV-2 RNA PCR Positive (Negative)
== END 2021-10-13 11:12 | disposition home or self-care (01) ==
LOC: CHSLAB 11:14
PROVIDERS: PCP Internal Medicine; Visit Provider Internal Medicine
DX: U07.1 COVID-19 (principal)
CPT/HCPCS: 87426; C9803; U0003; U0005

== ENCOUNTER 2021-10-28 21:34 | Emergency (ER) | payer OTHER, SELFPAY ==
--- NOTE | ~2021-10-28 | CT_ITS ---
EXAMINATION: CT abdomen pelvis wo con DATE: 10/28/2021 23:26 INDICATION: Right abdominal pain. Right flank pain. TECHNIQUE: Computed tomography (CT) of the abdomen and pelvis was performed without intravenous contr ast. Automated exposure control and iterative reconstruction technique were employed. The dose-length product was 1591.45 mGy-cm. COMPARISON: CT abdomen and pelvis 06/20/2021 FINDINGS: The visualized portions of the lung bases demonstrated mild atelectasis. No pleural effusio n. The heart size is normal. No pericardial effusion. The liver demonstrates surface nodularity, cons istent with cirrhosis. There are changes of cholecystectomy. There is severe splenomegaly. The pancre as and adrenal glands are normal. There is a 3 mm stone in right kidney. There is a 1.7 cm cyst in ri ght kidney. Left kidney is normal. The appendix is fluid-filled and measures up to 9 mm in diameter. There are no pathologically enlarged lymph nodes. There is no free intraperitoneal fluid. There is a left inguinal hernia containing fat. There is mild thoracolumbar spondylosis. IMPRESSION: 1. 9 mm appendix, which is indeterminate for acute appendicitis. The normal white blood cell count ar gues against appendicitis. 2. Cirrhosis of the liver with portal venous hypertension. Reviewed, dictated and finalized at location A. IMPRESSION: 1. 9 mm appendix, which is indeterminate for acute appendicitis. The normal [facility] blood cell count argues against appendicitis. 2. Cirrhosis of the liver with portal venous hypertension.
[2021-10-28 21:47] VITALS: BP 138/74; PULSE 80; RESP 18; TEMP 36.6; O2SAT 99
[2021-10-28 22:09] LABS: Basophils Percent Auto 0.3 % (0.2-1.2); Eosinophils Absolute Auto 0.1 K/mm3 (0-0.3); Eosinophils Percent Auto 0.8 % (0-4.4); Hematocrit 45.3 % (42.0-52.0); Hemoglobin 15.1 g/dL (14.0-18.0); Immature Granulocyte Absolute 0.03 K/mm3 (0.00-0.031); Immature Granulocyte Percent A 0.3 % (0-0.5); Immature Platelet Fraction Pct 5.7 % (0.9-11.2); Lymphocytes Absolute Auto 1.95 K/mm3 (0.9-3.2); Lymphocytes Percent Auto 22.7 % (18.3-44.2); Mean Corpuscular HGB Conc 33.3 g/dl (32-36); Mean Corpuscular Hemoglobin 30.3 pg (26-34); Mean Platelet Volume 10.5 fl (7.4-10.4); Monocytes Absolute Auto 0.6 K/mm3 (0.1-0.6); Monocytes Percent Auto 7.1 % (2.6-8.5); Neutrophils Absolute Auto 5.9 K/mm3 (1.3-6.7); Neutrophils Percent Auto 68.8 % (45.5-73.1); Platelet Count Result 102 k/mm3 (150-375); Red Blood Count 4.98 M/mm3 (4.6-6.20); White Blood Count 8.6 K/mm3 (4.5-10.0)
[2021-10-28 22:17] LABS: Alanine Aminotransferase 37 U/L (6-50); Albumin Level 4.2 g/dL (3.5-5.1); Alkaline Phosphatase 57 U/L (38-126); Anion Gap 9 mmol/L (8-16); Aspartate Amino Transferase 40 U/L (17-59); Bilirubin,Total 3.7 mg/dL (0.2-1.3); Blood Urea Nitrogen 13 mg/dL (9-20); Calcium 8.7 mg/dL (8.4-10.2); Carbon Dioxide 29 mmol/L (22-30); Chloride 99 mmol/L (98-107); Estimated CRCL calculation 180 ml/min; Estimated Glomerular Filt Rate > 60; Glucose 149 mg/dL (65-110); Lipase 130 U/L (23-300); Potassium 3.3 mmol/L (3.4-5.0); Sodium 137 mmol/L (137-145)
[2021-10-28 22:19] LABS: Appearance Urine Clear (Clear); Bilirubin Urine 1+ (Negative); Blood Urine Negative (Negative); Color Urine Yellow (Yellow); Glucose Urine UA Negative (Negative); Ketones Urine Negative (Negative); Leukocyte Esterase Ur Negative LEU/UL (Negative); Nitrate Urine Negative (Negative); Protein Urine 2+ mg/dL (Negative); Specific Grav Ur 1.025 (1.001-1.035)
[2021-10-28 22:22] LABS: Mucus Urine Heavy /lpf; Squamous Epithelial Cell Urine Rare /hpf (Few)
[2021-10-28 22:25] LABS: Add Urine Microscopic? YES
--- NOTE | 2021-10-29 | ED.ABDPAIN ---
HPI - Abdominal Pain General Chief Complaint: Abdominal Pain Stated Complaint: right sided abdominal pain, nausea, chills Time Seen by Provider: 10/28/21 23:10 History of Present Illness HPI narrative: 36-year-old male history of fatty liver disease, diabetes, kidney stones, and cholecystectomy presented the emergency department for evaluation of right-sided abdominal pain. Patient states this morning he began developing the right lower abdominal pain. Patient states the pain does radiate down his leg but denies any radiation to his testicles. Patient denies any associated nausea or vomiting. Patient did take ibuprofen for pain control at approximately 3 PM. Patient states this pain feels different than his prior kidney stones. Related Data Home Medications Medication Instructions Recorded Confirmed fluticasone propionate 50 1 spray intranasal DAILY 06/26/20 07/04/20 mcg/actuation nasal spray,suspension lisinopril 20 1 tablet PO DAILY 06/26/20 07/04/20 mg-hydrochlorothiazide 12.5 mg tablet metformin 500 mg tablet,extended 500 mg PO DAILY 06/26/20 07/04/20 release 24 hr montelukast 10 mg tablet 10 mg PO DAILY 06/26/20 07/04/20 nortriptyline 25 mg capsule 25 mg PO DAILY 06/26/20 07/04/20 verapamil 240 mg 24 hr 240 mg PO DAILY 06/26/20 07/04/20 capsule,extended release metformin 500 mg tablet 1,000 mg PO HS 07/02/20 07/04/20 Allergies Allergy/AdvReac Type Severity Reaction Status Date / Time cefaclor Allergy Intermediate Hives Verified 10/28/21 21:51 Penicillins Allergy Intermediate Hives Verified 10/28/21 21:51 Review of Systems Review of Systems: CONSTITUTIONAL: Denies fever, chills, or sweats. EYES: Denies visual changes, redness, or discharge. ENT: Denies rhinorrhea, congestion, sore throat, or otalgia. CARDIOVASCULAR: Denies chest pain, palpitations, or edema. RESPIRATORY: Denies cough or dyspnea. GASTROINTESTINAL: See HPI GENITOURINARY: Denies dysuria or hematuria. SKIN: Denies rash or itching. MUSCULOSKELETAL: Denies back pain, joint pain, or myalgia. NEUROLOGIC: Denies headache, numbness, or weakness. [facility] Past Medical History Medical History (Updated 10/29/21 @ 01:56 by Roger Balderrama MD) Diabetes HTN (hypertension) Morbid obesity HAY (obstructive sleep apnea) Social History Social History Smoking status: Never smoker Alcohol intake: never Alcohol use details: RARE Substance use: never Substance use type: does not use Spiritual care concerns: No Exam Narrative: APPEARANCE: Well appearing, no pain, no distress, well-nourished. HEAD: normocephalic, atraumatic. EYES: PERRLA/EOMI, conjunctivae clear. NOSE: Normal no drainage NECK: Supple. No adenopathy, no masses. RESPIRATORY: Airway patent, respirations nonlabored. Clear to auscultation bilaterally, no rales, rhonchi, wheezing. CARDIOVASCULAR: Regular rate and rhythm without murmurs rubs or gallops. ABDOMINAL: No CVA tenderness to palpation. No right upper quadrant tenderness to palpation. Patient does have some reproducible right lower quadrant tenderness to palpation. No rebound or guarding. MUSCULOSKELETAL: Moves all extremities. Strength/ROM intact, No edema, No calf tenderness. NEURO: Alert. Cranial nerves II through XII intact. Grossly intact SKIN: Warm, dry. Normal Color Course Course Emergency Course: Patient did feel improved with treatment. Patient CT is showed no etiology to explain the patient's symptoms. Patient was afebrile with no leukocytosis. Patient's CMP was within normal limit. Patient does have an elevated bilirubin but patient also has known fatty liver disease. Patient did have mild hematuria but no evidence of urinary tract infection. Patient was updated on the results of the work-up and on the importance having close follow-up with his primary care physician. Patient was educated on reasons to return to the emergency room. All que
[2021-10-29] MEDS: KETOROLAC 15 MG/ML VIAL (*BKC) IV PUSH (01:47)
[2021-10-29 01:48] VITALS: BP 138/75; PULSE 72; RESP 18; O2SAT 99
[2021-10-29] MEDS: traMADol HCL (*CRX) 50 MG TABLET PO (02:07)
[2021-10-29 02:21] VITALS: BP 124/76; PULSE 85; RESP 18; O2SAT 99
== END 2021-10-29 02:11 | disposition home or self-care (01) ==
PROVIDERS: Emergency Provider Emergency Medicine; PCP Internal Medicine
DX: R10.31 Right lower quadrant pain (principal); E11.9 Type 2 diabetes mellitus without complications; I10 Essential (primary) hypertension; G47.33 Obstructive sleep apnea (adult) (pediatric); E66.01 Morbid (severe) obesity due to excess calories; Z68.41 Body mass index [BMI] 40.0-44.9, adult; Z79.84 Long term (current) use of oral hypoglycemic drugs; K74.60 Unspecified cirrhosis of liver; K76.6 Portal hypertension
CPT/HCPCS: 36415; 74176; 80053; 81001; 83690; 85025; 85055; 87086; 96374; 99284; A9270; J1885

== ENCOUNTER 2021-10-29 15:33 | Outpatient (CLI) | payer OTHER, SELFPAY ==
[2021-10-29 15:49] LABS: Add Urine Microscopic? YES; Appearance Urine Clear (Clear); Bilirubin Urine Negative (Negative); Blood Urine Negative (Negative); Color Urine Yellow (Yellow); Glucose Urine UA Negative (Negative); Ketones Urine Negative (Negative); Leukocyte Esterase Ur Negative (Negative); Nitrate Urine Negative (Negative); Protein Urine Negative (Negative)
[2021-10-29 15:50] LABS: Basophils Absolute Auto 0.02 K/mm3 (0.00-0.10); Basophils Percent Auto 0.3 % (0.0-1.0); Eosinophils Absolute Auto 0.07 K/mm3 (0.02-0.50); Eosinophils Percent Auto 1.2 % (1.0-6.0); Hematocrit 44.1 % (40.0-54.0); Hemoglobin 15.2 g/dL (14.0-18.0); Immature Granulocyte Absolute 0.02 K/mm3 (0.00-0.00); Immature Granulocyte Percent A 0.3 % (0.0-0.0); Immature Platelet Fraction Pct 3.7 % (1.0-7.0); Lymphocytes Absolute Auto 1.51 K/mm3 (1.10-4.50); Lymphocytes Percent Auto 25.7 % (18.0-42.0); Mean Corpuscular HGB Conc 34.5 g/dL (32.0-36.0); Mean Corpuscular Hemoglobin 31.4 pg (27.0-31.0); Mean Corpuscular Volume 91.1 fL (78.0-102.0); Mean Platelet Volume 10.8 fl (8.7-11.0); Monocytes Absolute Auto 0.43 K/mm3 (0.10-0.90); Monocytes Percent Auto 7.3 % (2.0-11.0); Neutrophils Absolute Auto 3.8 K/mm3 (1.7-7.2); Neutrophils Percent Auto 65.2 % (50.0-70.0); Platelet Count Result 98 K/mm3 (150-420); Red Blood Count 4.84 M/mm3 (4.70-6.10); Red Cell Distribution Width 12.7 % (11.6-14.4); White Blood Count 5.9 K/mm3 (4.8-10.8)
[2021-10-29 16:09] LABS: Bacteria Urine None seen /hpf; RBC Urine None seen /hpf (0-2); Squamous Epithelial Cell Urine Rare /hpf (Few); WBC Urine None seen /hpf (0-3)
[2021-10-29 16:38] LABS: Alanine Aminotransferase 43 U/L (16-63); Albumin Level 3.9 g/dL (3.4-5.0); Alkaline Phosphatase 64 U/L (46-116); Anion Gap 7 mmol/L (8-16); Aspartate Amino Transferase 33 U/L (15-37); Bilirubin,Total 4.8 mg/dL (0.00-1.00); Blood Urea Nitrogen 14 mg/dL (7-18); Calcium 8.6 mg/dL (8.5-10.1); Carbon Dioxide 29 mmol/L (21-32); Chloride 103 mmol/L (98-108); Estimated Glomerular Filt Rate > 60; Glucose 133 mg/dL (70-99); Osmolality Calculated 290 mOsm/kg (285-295); Potassium 3.8 mmol/L (3.5-5.1); Sodium 139 mmol/L (136-145); Total Protein 7.3 g/dL (6.4-8.2)
[2021-11-04 17:47] LABS: Alpha Fetoprotein Tumor Marker 12.8 ng/mL (<6.1)
== END 2021-10-29 15:34 | disposition home or self-care (01) ==
LOC: CHSLAB 15:35
PROVIDERS: PCP Internal Medicine; Visit Provider Internal Medicine
DX: N20.0 Calculus of kidney (principal); R31.9 Hematuria, unspecified; K74.60 Unspecified cirrhosis of liver; R10.9 Unspecified abdominal pain
CPT/HCPCS: 36415; 80053; 81001; 82105; 85025; 85055; 87086

== ENCOUNTER 2022-01-10 08:45 | Outpatient (CLI) | payer OTHER, SELFPAY ==
[2022-01-10 09:28] LABS: Basophils Absolute Auto 0.02 K/mm3 (0.00-0.10); Basophils Percent Auto 0.4 % (0.0-1.0); Eosinophils Absolute Auto 0.08 K/mm3 (0.02-0.50); Eosinophils Percent Auto 1.6 % (1.0-6.0); Hematocrit 46.8 % (40.0-54.0); Immature Granulocyte Absolute 0.02 K/mm3 (0.00-0.00); Immature Granulocyte Percent A 0.4 % (0.0-0.0); Immature Platelet Fraction Pct 2.7 % (1.0-7.0); Lymphocytes Absolute Auto 1.51 K/mm3 (1.10-4.50); Lymphocytes Percent Auto 29.9 % (18.0-42.0); Mean Corpuscular HGB Conc 34.2 g/dL (32.0-36.0); Mean Corpuscular Hemoglobin 30.4 pg (27.0-31.0); Mean Platelet Volume 10.4 fl (8.7-11.0); Monocytes Absolute Auto 0.37 K/mm3 (0.10-0.90); Monocytes Percent Auto 7.3 % (2.0-11.0); Neutrophils Absolute Auto 3.1 K/mm3 (1.7-7.2); Neutrophils Percent Auto 60.4 % (50.0-70.0); Platelet Count Result 104 K/mm3 (150-420); Red Blood Count 5.26 M/mm3 (4.70-6.10); Red Cell Distribution Width 11.8 % (11.6-14.4); White Blood Count 5.1 K/mm3 (4.8-10.8)
[2022-01-10 09:39] LABS: INR 1.2; Prothrombin Time 12.8 Seconds (9.50-12.10)
[2022-01-10 09:57] LABS: Alanine Aminotransferase 39 U/L (16-63); Albumin Level 4.1 g/dL (3.4-5.0); Alkaline Phosphatase 64 U/L (46-116); Anion Gap 7 mmol/L (8-16); Aspartate Amino Transferase 32 U/L (15-37); Bilirubin,Total 2.8 mg/dL (0.00-1.00); Blood Urea Nitrogen 8 mg/dL (7-18); Calcium 8.6 mg/dL (8.5-10.1); Carbon Dioxide 30 mmol/L (21-32); Chloride 105 mmol/L (98-108); Estimated Glomerular Filt Rate > 60; Glucose 97 mg/dL (70-99); Osmolality Calculated 292 mOsm/kg (285-295); Potassium 4.1 mmol/L (3.5-5.1); Sodium 142 mmol/L (136-145); Total Protein 7.9 g/dL (6.4-8.2)
[2022-01-15 18:03] LABS: Alpha Fetoprotein Tumor Marker 11.6 ng/mL (<6.1)
[2022-01-16 11:54] LABS: Hemoglobin A1C 5.2 % (<5.7)
== END 2022-01-10 08:46 | disposition home or self-care (01) ==
PROVIDERS: PCP Internal Medicine
DX: K74.60 Unspecified cirrhosis of liver (principal); E11.9 Type 2 diabetes mellitus without complications
CPT/HCPCS: 36415; 80053; 82105; 83036; 85025; 85055; 85610

== ENCOUNTER 2022-01-16 07:26 | Outpatient (CLI) | payer OTHER, SELFPAY ==
--- NOTE | ~2022-01-16 | US_ITS ---
US abdomen limited INDICATION: Hepatic cirrhosis PROCEDURE: Realtime right upper abdominal ultrasound. COMPARISON: No prior studies for comparison. FINDINGS: The pancreas is obscured by bowel gas. There is coarse increased liver echotexture, consist ent with fatty infiltration. Liver is enlarged measuring 19.7 cm. Liver echotexture is normal withou t focal mass or intrahepatic biliary dilatation. There is normal directional flow in the portal vein . Gallbladder surgically absent. Common bile duct measures 3 mm. IMPRESSION: 1: Hepatomegaly with fatty infiltration of the liver. Reviewed, dictated and finalized at location B.
== END 2022-01-16 07:27 | disposition home or self-care (01) ==
PROVIDERS: PCP Internal Medicine
DX: K74.60 Unspecified cirrhosis of liver (principal)
CPT/HCPCS: 76705

== ENCOUNTER 2022-03-07 07:56 | Outpatient (CLI) | payer OTHER, SELFPAY ==
[2022-03-07 08:40] LABS: Alanine Aminotransferase 38 U/L (16-63); Albumin Level 4.1 g/dL (3.4-5.0); Alkaline Phosphatase 61 U/L (46-116); Anion Gap 6 mmol/L (8-16); Aspartate Amino Transferase 28 U/L (15-37); Bilirubin,Total 4.1 mg/dL (0.00-1.00); Blood Urea Nitrogen 15 mg/dL (7-18); Carbon Dioxide 34 mmol/L (21-32); Chloride 101 mmol/L (98-108); Estimated Glomerular Filt Rate > 60; Glucose 101 mg/dL (70-99); Osmolality Calculated 292 mOsm/kg (285-295); Potassium 4.5 mmol/L (3.5-5.1); Sodium 141 mmol/L (136-145); Total Protein 8.1 g/dL (6.4-8.2)
== END 2022-03-07 07:57 | disposition home or self-care (01) ==
PROVIDERS: PCP Internal Medicine
DX: K74.60 Unspecified cirrhosis of liver (principal); R10.84 Generalized abdominal pain
CPT/HCPCS: 36415; 80053

== ENCOUNTER 2022-03-13 07:48 | Outpatient (CLI) | payer OTHER, SELFPAY ==
--- NOTE | ~2022-03-13 | CT_ITS ---
CT Abdomen with contrast. History: Cirrhosis, abdominal pain. Spiral CT of the abdomen was performed prior to and following administration of intravenous contrast. 100 cc of Omnipaque 350 was administered intravenously without complication. Arterial phase and port al venous phase imaging was performed. Dose reduction technique was used on this scan by utilizing au tomated exposure control and iterative reconstruction technique. The dose-length product (DLP) was 34 68.81 mGy-cm. COMPARISON: 10/28/2021 and 06/20/2021 Findings: Scans through the lung bases demonstrate mild atelectatic change. Stable nodular contour of the liver, compatible cirrhosis. Liver is unchanged from prior exams. No fo avelino enhancing/hypervascular mass seen. Splenomegaly noted. Cholecystectomy clips are present. The davidson creas, adrenals and kidneys are within normal limits. No evidence of aortic aneurysm. There is stable peripancreatic/wyatt hepatis lymphadenopathy. Visualized bowel loops are unremarkable . No ascites. Impression: Cirrhotic liver with associated splenomegaly. No CT evidence for hepatocellular carcinoma or other fo avelino hepatic mass. Stable peripancreatic/wyatt hepatis lymphadenopathy, nonspecific. Reviewed, dictated and finalized at [facility]. RAM ANALYST Impression: Cirrhotic liver with associated splenomegaly. No CT evidence for hepatocellular carcinoma or other focal hepatic mass. Stable peripancreatic/wyatt hepatis lymphadenopathy, nonspecific.
== END 2022-03-13 07:49 | disposition home or self-care (01) ==
LOC: CHSIMG 07:49
PROVIDERS: PCP Internal Medicine
DX: K74.60 Unspecified cirrhosis of liver (principal); R10.84 Generalized abdominal pain; R16.1 Splenomegaly, not elsewhere classified; R59.0 Localized enlarged lymph nodes
CPT/HCPCS: 74170; Q9967

== ENCOUNTER → 2022-03-20 15:35 | Outpatient (CLI) | payer OTHER, SELFPAY ==
--- NOTE | ~2022-03-20 | MR_ITS ---
EXAMINATION: MR shoulder RT wo con DATE: 03/20/2022 16:43 INDICATION: Chronic right shoulder pain. TECHNIQUE: Magnetic resonance imaging (MRI) of the right shoulder was performed without intravenous c ontrast. Sequences included axial PD-weighted FS FSE, coronal oblique PD-weighted FS FSE and T2-weigh talia FS FSE, and sagittal oblique T2-weighted FS FSE and T1-weighted FSE. COMPARISON: None. FINDINGS: Coracoacromial arch: The acromion undersurface is flat in morphology (type I). There is mild acromioclavicular joint osteo arthritis. There is mild subacromial/subdeltoid bursitis. Rotator cuff: Supraspinatus, infraspinatus, teres minor, and subscapularis tendons are normal. No tear. There is mi ld fatty atrophy of subscapularis muscle belly. There is degenerative cystic change in greater tubero sity. Biceps tendon and glenoid labrum: Biceps tendon is in bicipital groove. There is mild biceps tendinopathy. The glenoid labrum is normal . Fluid: There is no glenohumeral joint effusion. Bones/cartilage: Glenoid cartilage is normal. Humeral head cartilage is normal. IMPRESSION: 1. Mild acromioclavicular joint osteoarthritis. 2. Mild subacromial/subdeltoid bursitis. 3. Mild biceps tendinopathy. Reviewed, dictated and finalized at location A. E TURNER
== END ==
PROVIDERS: PCP Internal Medicine; Visit Provider Internal Medicine
DX: M19.011 Primary osteoarthritis, right shoulder (principal); M75.51 Bursitis of right shoulder; M75.21 Bicipital tendinitis, right shoulder
CPT/HCPCS: 73221

== ENCOUNTER 2022-04-25 09:05 | Outpatient (CLI) | payer OTHER, SELFPAY ==
[2022-04-25 09:20] LABS: Basophils Absolute Auto 0.04 K/mm3 (0.00-0.10); Basophils Percent Auto 0.7 % (0.0-1.0); Eosinophils Absolute Auto 0.11 K/mm3 (0.02-0.50); Hematocrit 43.7 % (40.0-54.0); Hemoglobin 15.2 g/dL (14.0-18.0); Immature Granulocyte Absolute 0.01 K/mm3 (0.00-0.00); Immature Granulocyte Percent A 0.2 % (0.0-0.0); Immature Platelet Fraction Pct 3.2 % (1.0-7.0); Lymphocytes Absolute Auto 1.57 K/mm3 (1.10-4.50); Lymphocytes Percent Auto 28.4 % (18.0-42.0); Mean Corpuscular HGB Conc 34.8 g/dL (32.0-36.0); Mean Corpuscular Hemoglobin 30.4 pg (27.0-31.0); Mean Corpuscular Volume 87.4 fL (78.0-102.0); Mean Platelet Volume 10.1 fl (8.7-11.0); Monocytes Absolute Auto 0.37 K/mm3 (0.10-0.90); Monocytes Percent Auto 6.7 % (2.0-11.0); Neutrophils Absolute Auto 3.4 K/mm3 (1.7-7.2); Platelet Count Result 104 K/mm3 (150-420); Red Cell Distribution Width 12.4 % (11.6-14.4); White Blood Count 5.5 K/mm3 (4.8-10.8)
[2022-04-25 09:30] LABS: INR 1.2; Prothrombin Time 12.8 Seconds (9.50-12.10)
[2022-04-25 10:33] LABS: Alanine Aminotransferase 38 U/L (16-63); Albumin Level 3.8 g/dL (3.4-5.0); Alkaline Phosphatase 64 U/L (46-116); Anion Gap 9 mmol/L (8-16); Aspartate Amino Transferase 30 U/L (15-37); Bilirubin,Total 2.1 mg/dL (0.00-1.00); Blood Urea Nitrogen 7 mg/dL (7-18); Calcium 8.5 mg/dL (8.5-10.1); Carbon Dioxide 29 mmol/L (21-32); Chloride 105 mmol/L (98-108); Estimated Glomerular Filt Rate > 60; Glucose 85 mg/dL (70-99); Osmolality Calculated 293 mOsm/kg (285-295); Potassium 4.2 mmol/L (3.5-5.1); Sodium 143 mmol/L (136-145); Total Protein 7.4 g/dL (6.4-8.2)
== END 2022-04-25 09:06 | disposition home or self-care (01) ==
PROVIDERS: PCP Internal Medicine
DX: K75.81 Nonalcoholic steatohepatitis (NASH) (principal); K74.60 Unspecified cirrhosis of liver
CPT/HCPCS: 36415; 80053; 85025; 85055; 85610

== ENCOUNTER 2022-04-27 16:02 | Outpatient (RCR) | payer OTHER, SELFPAY ==
--- NOTE | 2022-04-27 17:28 | PTOPEVAL1 ---
Assessment and note entered by Renetta Felix DPT Evaluation Information Assessment Status Evaluation Diagnosis neck pain Onset 04/20/22 Subjective Information Patient reports he has had neck pain for greater than 5 years with the last year getting worse. 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 He gets headaches due to neck pain. He also reports pain that radiates to the L pec region. Patient has difficulty sitting to watching TV, looking at computer screen, and sleeping. He has had an xray but has not heard of the results. 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 Reported Pain Level Pain Score 4: Self Report Assessment PT Clinical Summary Patient is a 36 year old male who presents to PT with neck pain. Patient demonstrates cervical hypomobility, pain with cervical ROM and decreased length of the L pec impairing his ability to work on the computer, look at his phone and sleep without increase in pain. Patient would benefit from skilled PT to address impairments and return to PLOF. Plan of Care Interventions Electrical Stimulation,Hot Pack/Cold Pack,Manual Therapy,Mechanical Traction,Neuro Re-education, Patient/Caregiver Educati,Therapeutic Activities, Therapeutic Exercise PT Services Indicated Yes Treatment Frequency and 2x weekly for 16 visits Duration These treatments will address the objective and functional deficits as defined above. The patient will be advanced safely and appropriately in order for the patient to progress towards his/her prior level of function. Additional exercises will be introduced and as well as a comprehensive home exercise program upon discharge, if needed, ?to ensure carryover of functional gains achieved in the clinic. This treatment plan has been reviewed and agreement upon by the patient.
--- NOTE | 2022-06-01 17:25 | PTOPPROG ---
Assessment and note entered by JT File, PT Evaluation Information Assessment Status Progress Diagnosis neck pain Onset 04/20/22 Subjective Information patient reports he is sore today. he reports he has a steady pain in the neck, and still sharp shooting pain at times with movements. he reports he has not been able to pinpoint which movements cause increased pain. Assessment PT Clinical Summary mr. knox continues to present with increased pain in the neck with increased activity and certain movements. he has met goals for HEP performance and rom of the cervical spine. he is progressing towards goals for skilled PT, but would benefit from continued skilled treatment for manual therapy and progresison of exercise program. Plan of Care Interventions Electrical Stimulation,Hot Pack/Cold Pack,Manual Therapy,Mechanical Traction,Neuro Re-education, Patient/Caregiver Educati,Therapeutic Activities, Therapeutic Exercise PT Services Indicated Yes Treatment Frequency and continue per initial plan of care Duration These treatments will address the objective and functional deficits as defined above. The patient will be advanced safely and appropriately in order for the patient to progress towards his/her prior level of function. Additional exercises will be introduced and as well as a comprehensive home exercise program upon discharge, if needed, ?to ensure carryover of functional gains achieved in the clinic. This treatment plan has been reviewed and agreement upon by the patient.
--- NOTE | 2022-08-04 16:36 | PCPTNOTE ---
Patient discharged due to scheduled shoulder surgery
== END 2022-06-11 23:59 | disposition home or self-care (01) ==
LOC: CHSPT 16:02
PROVIDERS: Visit Provider Nurse Practitioner Adult Health
DX: M54.2 Cervicalgia (principal)
CPT/HCPCS: 97014; 97110; 97140; 97161; G0283

== ENCOUNTER 2022-04-30 06:41 | Emergency (ER) | payer OTHER, SELFPAY ==
--- NOTE | ~2022-04-30 | XR_ITS ---
EXAMINATION: XR abdomen/kub 1V INDICATION: Right flank pain TECHNIQUE: Supine views of the abdomen were obtained on 2 radiographs. COMPARISON: CT from today FINDINGS: A moderate volume of colonic stool is present. Stool obscures the known right proximal uret eral stone. The bowel gas pattern is normal. Cholecystectomy clips are noted. IMPRESSION: 1. Bowel contents obscure known right ureteral stone. Reviewed, dictated and finalized at location D. OR NEWSPAPER
--- NOTE | ~2022-04-30 | CT_ITS ---
EXAMINATION: CT abdomen pelvis wo con DATE: 04/30/2022 07:56 INDICATION: Flank pain. TECHNIQUE: Computed tomography (CT) of the abdomen and pelvis was performed without intravenous contr ast. Automated exposure control and iterative reconstruction technique were employed. The dose-length product was 837.62 mGy-cm. COMPARISON: CT abdomen 03/13/2022 FINDINGS: The visualized portions of the lung bases demonstrate minimal atelectasis. No pleural effus ion. The heart size is normal. No pericardial effusion. Paraesophageal varices are noted. The liver d emonstrates surface nodularity, consistent with cirrhosis. There are changes of cholecystectomy. Ther e is severe splenomegaly. The pancreas, adrenal glands, and left kidney are normal. There is mild rig ht hydronephrosis. There is a 2 mm stone in right kidney. There is a 3 mm stone in proximal right ure ter. There is a left inguinal hernia containing fat. There are no dilated loops of bowel. The appendi x is normal. There is mild periportal lymphadenopathy, likely reactive. There is no free intraperiton eal fluid. There is mild thoracolumbar spondylosis. IMPRESSION: 1. 3 mm stone in proximal right ureter with mild right hydronephrosis. 2. 2 mm nonobstructing right kidney stone. 3. Cirrhosis of the liver with portal venous hypertension. Reviewed, dictated and finalized at location A. NDER LET OFF HELPER
[2022-04-30 06:45] VITALS: BP 169/91; PULSE 97; RESP 16; TEMP 36.7; O2SAT 97
[2022-04-30 07:34] LABS: Calcium Oxalate Crystals Urine Present /hpf; Mucus Urine Few /lpf; RBC Urine >75 /hpf (0-2); Squamous Epithelial Cell Urine Few /hpf (Few); WBC Urine 16-20 /hpf
[2022-04-30 07:37] LABS: Add Urine Microscopic? YES; Appearance Urine Clear (Clear); Bilirubin Urine 1+ (Negative); Blood Urine 3+ (Negative); Color Urine Yellow (Yellow); Glucose Urine UA Negative (Negative); Ketones Urine Trace mg/dL (Negative); Leukocyte Esterase Ur Negative LEU/UL (Negative); Nitrate Urine Negative (Negative); Protein Urine 2+ mg/dL (Negative); Specific Grav Ur >= 1.030 (1.001-1.035); pH Urine 5.5 (5.0-9.0)
[2022-04-30 07:39] LABS: Alanine Aminotransferase 36 U/L (6-50); Albumin Level 4.5 g/dL (3.5-5.1); Alkaline Phosphatase 67 U/L (38-126); Anion Gap 5 mmol/L (8-16); Aspartate Amino Transferase 39 U/L (17-59); Bilirubin,Total 2.2 mg/dL (0.2-1.3); Blood Urea Nitrogen 6 mg/dL (9-20); Calcium 8.8 mg/dL (8.4-10.2); Carbon Dioxide 32 mmol/L (22-30); Chloride 100 mmol/L (98-107); Estimated CRCL calculation 178 ml/min; Estimated Glomerular Filt Rate > 60; Glucose 109 mg/dL (65-110); Potassium 4.1 mmol/L (3.4-5.0); Sodium 137 mmol/L (137-145)
--- NOTE | 2022-04-30 07:43 | ED.BACK ---
HPI - Back Pain/Injury General Chief Complaint: Back Pain/Injury Stated Complaint: flank pain Time Seen by Provider: 04/30/22 07:32 Source: patient Mode of arrival: ambulatory Limitations: no limitations History of Present Illness HPI Narrative: 36 years old white male with cough this morning with pain at the right flank area similar to his previous history of kidney stone, radiating to the right groin and right testicle. Associated with nausea. He denies any fever, chills, vomiting. Related Data Home Medications Medication Instructions Recorded Confirmed fluticasone propionate 50 1 spray intranasal DAILY 06/26/20 07/04/20 mcg/actuation nasal spray,suspension lisinopril 20 1 tablet PO DAILY 06/26/20 07/04/20 mg-hydrochlorothiazide 12.5 mg tablet metformin 500 mg tablet,extended 500 mg PO DAILY 06/26/20 07/04/20 release 24 hr montelukast 10 mg tablet 10 mg PO DAILY 06/26/20 07/04/20 nortriptyline 25 mg capsule 25 mg PO DAILY 06/26/20 07/04/20 verapamil 240 mg 24 hr 240 mg PO DAILY 06/26/20 07/04/20 capsule,extended release metformin 500 mg tablet 1,000 mg PO HS 07/02/20 07/04/20 Allergies Allergy/AdvReac Type Severity Reaction Status Date / Time cefaclor Allergy Intermediate Hives Verified 04/30/22 06:54 Penicillins Allergy Intermediate Hives Verified 04/30/22 06:54 Review of Systems Review of Systems: All systems reviewed & are unremarkable except as noted in HPI and below PMFSH Past Medical History Medical History Diabetes HTN (hypertension) Morbid obesity HAY (obstructive sleep apnea) Social History Social History Smoking status: Never smoker Alcohol intake: never Alcohol use details: RARE Substance use: never Substance use type: does not use Living arrangements: with family Spiritual care concerns: No Exam Narrative: General appearance: Well-developed, well-nourished Skin: pale Head: Normocephalic, nontraumatic Eyes: Clear conjunctiva ENT: Oropharynx normal, ears normal, nose normal Neck: Supple, nontender Chest and respiratory: Airway patent, no respiratory distress, no accessory muscle use Heart: Regular rate/rhythm Abdomen: Soft, right flank tenderness, no organomegaly, quiet bowel sounds Vascular: Normal peripheral pulses, normal capillary refill. Musculoskeletal: Normal range of motion, nontender back Neurologic: Alert and oriented ?3, ESTIMATOR PROJECT MANAGER is normal as tested, no gross motor deficit Course Vital Signs Vital signs: Vital Signs Temperature 36.7 C 04/30/22 06:45 Pulse Rate 97 04/30/22 06:45 Respiratory Rate 16 04/30/22 06:45 Blood Pressure 169/91 H 04/30/22 06:45 Pulse Oximetry 97 04/30/22 06:45 Oxygen Delivery Room Air 04/30/22 06:45 Temperature 36.6 C 04/30/22 08:39 Pulse Rate 73 04/30/22 08:39 Respiratory Rate 16 04/30/22 08:39 Blood Pressure 141/94 H 04/30/22 08:39 Pulse Oximetry 98 04/30/22 08:39 Oxygen Delivery Room Air 04/30/22 06:45 MDM - Back Pain/Injury Differential Diagnosis Differential diagnosis: Likely renal colic, pyelonephritis and other (Kidney stone) Lab Data 04/30/22 07:22 04/30/22 07:22 Labs: Lab Results 04/30/22 04/30/22 04/30/22 Range/Units 07:22 07:22 07:22 WBC 4.7 (4.5-10.0) K/mm3 RBC 5.39 (4.6-6.20) M/mm3 Hgb 16.4 (14.0-18.0) g/dL Hct 47.9 (42.0-52.0) % MCV 88.9 (80-100) fl MCH 30.4 (26-34) pg MCHC 34.2 (32-36) g/dl RDW 12.4 (11.5-14.5) % Plt Count 105 L (150-375) k/mm3 MPV 10.2 (7.4-10.4) fl Immature Gran % (
[2022-04-30 07:44] LABS: Basophils Percent Auto 0.2 % (0.2-1.2); Eosinophils Absolute Auto 0.1 K/mm3 (0-0.3); Eosinophils Percent Auto 1.9 % (0-4.4); Hematocrit 47.9 % (42.0-52.0); Hemoglobin 16.4 g/dL (14.0-18.0); Immature Granulocyte Absolute 0.01 K/mm3 (0.00-0.031); Immature Granulocyte Percent A 0.2 % (0-0.5); Immature Platelet Fraction Pct 4.6 % (0.9-11.2); Lymphocytes Absolute Auto 1.31 K/mm3 (0.9-3.2); Lymphocytes Percent Auto 27.7 % (18.3-44.2); Mean Corpuscular HGB Conc 34.2 g/dl (32-36); Mean Corpuscular Hemoglobin 30.4 pg (26-34); Mean Corpuscular Volume 88.9 fl (80-100); Mean Platelet Volume 10.2 fl (7.4-10.4); Monocytes Absolute Auto 0.4 K/mm3 (0.1-0.6); Monocytes Percent Auto 7.6 % (2.6-8.5); Neutrophils Percent Auto 62.4 % (45.5-73.1); Platelet Count Result 105 k/mm3 (150-375); Red Blood Count 5.39 M/mm3 (4.6-6.20); Red Cell Distribution Width 12.4 % (11.5-14.5); White Blood Count 4.7 K/mm3 (4.5-10.0)
[2022-04-30] MEDS: SODIUM CHLORIDE 0.9% IV 1,000 ML 999 ML IV CONT (08:08)
[2022-04-30] MEDS: TAMSULOSIN HCL 0.4 MG CAPSULE PO (08:08)
[2022-04-30] MEDS: HYDROmorphone HCL INJ (*CRX) 1 MG/ML SYR 0.5 MG IV PUSH ×2 (08:08→08:54)
[2022-04-30] MEDS: ONDANSETRON INJ 4 MG/2 ML VIAL IV PUSH (08:08)
[2022-04-30 08:39] VITALS: BP 141/94; PULSE 73; RESP 16; TEMP 36.6; O2SAT 98
[2022-04-30] MEDS: KETOROLAC 30 MG/ML VIAL (*BKC) IV PUSH (09:40)
== END 2022-04-30 10:34 | disposition home or self-care (01) ==
PROVIDERS: Emergency Provider Emergency Medicine; PCP Internal Medicine
DX: N13.2 Hydronephrosis with renal and ureteral calculous obstruction (principal); E11.9 Type 2 diabetes mellitus without complications; I10 Essential (primary) hypertension; G47.33 Obstructive sleep apnea (adult) (pediatric); E66.01 Morbid (severe) obesity due to excess calories; Z68.41 Body mass index [BMI] 40.0-44.9, adult; Z87.442 Personal history of urinary calculi; Z79.84 Long term (current) use of oral hypoglycemic drugs; K74.60 Unspecified cirrhosis of liver; I27.20 Pulmonary hypertension, unspecified
CPT/HCPCS: 36415; 74018; 74176; 80053; 81001; 85025; 85055; 87086; 96361; 96374; 96375; 96376; 99284; A9270; J1170; J1885; J2405; J7030

== ENCOUNTER 2022-05-05 12:44 | Outpatient (CLI) | payer OTHER, SELFPAY ==
--- NOTE | ~2022-05-05 | XR_ITS ---
EXAMINATION: XR abdomen/kub 1V INDICATION: Right flank pain with polyuria TECHNIQUE: Supine views of the abdomen were obtained on three radiographs. COMPARISON: 04/30/[address] from today FINDINGS: A subtle 3 mm density projects just above the right L4 transverse process. The bowel gas pa ttern is normal. Cholecystectomy clips are noted. IMPRESSION: 1. Subtle density projecting just above the right L4 transverse process, likely known ureteral stone. Reviewed, dictated and finalized at location L. OR CYTOGENETIC TECHNOLOGIST
--- NOTE | ~2022-05-05 | CT_ITS ---
EXAMINATION: CT abdomen pelvis wo con DATE: 05/05/2022 13:17 INDICATION: Right flank pain with polyuria TECHNIQUE: Computed tomography (CT) of the abdomen and pelvis was performed without intravenous contr ast. The dose-length product (DLP) was 1016.88 mGy-cm. Automated exposure control and iterative recon struction technique were employed. COMPARISON: 04/30/2022 FINDINGS: Minimal dependent atelectasis is present in the lung bases. The heart size is normal. Perie sophageal and perisplenic varices are noted. There is nodularity of the liver surface. Splenomegaly i s noted. The gallbladder is surgically absent. The pancreas and adrenal glands are normal. There is a persistent 3 mm stone of the proximal right ureter without significant change in position which caus es mild right hydronephrosis. Also seen is a nonobstructing 2 mm stone of the right kidney. Cysts of the kidneys measure up to seven cm on the right. There is mild periportal lymphadenopathy, likely concetta ctive. No pathologically enlarged pelvic lymph nodes are identified. No free intraperitoneal gas or e vidence of bowel obstruction. There is a left inguinal hernia containing fat. The appendix is normal. There is mild thoracolumbar spondylosis. IMPRESSION: 1. Stable 3 mm stone proximal right ureter with mild right hydronephrosis. 2. Cirrhosis with portal hypertension. Reviewed, dictated and finalized at location L. T OPERATIONS MANAGER
== END 2022-05-05 12:45 | disposition home or self-care (01) ==
LOC: CHSIMG 12:45
PROVIDERS: PCP Internal Medicine; Visit Provider Nurse Practitioner Adult Health
DX: N20.1 Calculus of ureter (principal); K74.60 Unspecified cirrhosis of liver; K76.6 Portal hypertension
CPT/HCPCS: 74018; 74176

== ENCOUNTER 2022-05-11 12:00 | Outpatient (CLI) | payer OTHER, SELFPAY ==
--- NOTE | 2022-05-11 12:11 | ECG_ITS ---
Measurements Intervals [place] Rate: 91 P: 58 HI: 134 QRS: 52 QRSD: 120 T: 23 QT: 385 QTc: 476 Interpretive Statements SINUS RHYTHM SMALL NONDIAGNOSTIC INFERIOR Q-WAVES OTHERWISE NORMAL ECG NO SIGNIFICANT CHANGES Electronically Signed On 05-11-2022 12:58:45 HALVER MACHINE OPERATOR by Mukesh Frye M.D.
== END 2022-05-11 12:01 | disposition home or self-care (01) ==
PROVIDERS: PCP Internal Medicine; Visit Provider Anesthesiology
DX: Z01.810 Encounter for preprocedural cardiovascular examination (principal); I10 Essential (primary) hypertension
CPT/HCPCS: 93005

== ENCOUNTER 2022-05-14 01:25 | Day surgery (SDC) | payer OTHER, SELFPAY ==
[2022-05-11 09:27] VITALS: BMI 41.3
--- NOTE | 2022-05-11 09:30 | PC.NURSE ---
Report to the Outpatient Waiting Room, entrance under the green pavilion located off [facility], at time 1300 on date 05/14/22. Planned Procedure Time: 1500. Time changes happen often and if your time is changed the preop area will call you the afternoon before. - You and your visitor will be asked to self-screen and do not enter if you have any COVID symptoms. - Only one visitor is requested with a max of two and NO children visitors are allowed at this time. - The patient visitor may be requested to leave or wait in car when not with patient due to distancing restrictions. - A mask is optional within the hospital at this time. Patients may have clear liquids (water, carbonated beverages, clear teas, apple juice) until 3 hours prior to surgery with a maximum of 20 ounces. - No food from midnight until time of surgery Take the following medications with a SIP of water the morning of surgery: PAIN PILL IF NEEDED, VERAPAMIL DO NOT STOP ANY OF YOUR OTHER PRESCRIPTION MEDICATIONS PRIOR TO SURGERY EXCEPT THE FOLLOWING Medications to discontinue per physician: TORADOL Date to take last dose: PER DR. FRANCO Please no make-up, nail bengali, hairspray, perfume, deodorant, or body powder the day of surgery. No jewelry (including any body piercings) or valuables the day of surgery, leave them at home. Please take a shower or bath the night before, or the morning of, surgery with an antibacterial soap. Wear comfortable, loose fitting clothing. - Jewelry must be removed prior to entering the operating room. Rings and piercings that are not removed may be cut off. - The hospital will not accept responsibility for valuables. - Please leave all valuables, including medications, at home the day of surgery. If you are going home after surgery, a licensed rolloff truck driver must drive you home. - NO public transportation without another adult if you receive anesthesia. - We recommend that an adult stay with you for 24 hours following discharge. - We also recommend that you do not drive, make important decision, drink alcoholic beverages, or take any drugs that were not prescribed by your health care provider for at least 24 hours after your discharge time. Follow any additional instructions given to you from your surgeon. If you or anyone in your household have experienced Covid symptoms in the past week, please notify your surgeon or the nurse liaison at the phone number below for possible testing. Telephone instructions given to PT - ADRIANA YIP and asked if any additional questions and then verbalized understanding. Patient advised to call surgeon office or pre surgery nurse liaison [phone] if any additional questions.
--- NOTE | ~2022-05-14 | XR_ITS ---
EXAMINATION: XR fluoroscopy no charge DATE: 05/14/2022 12:59 INDICATION: Right ureteral stone. TECHNIQUE: 7 intraoperative fluoroscopic views of the abdomen and pelvis were obtained. I was not pre sent. Fluoroscopy exposure time was 25 seconds. COMPARISON: CT abdomen and pelvis 05/05/2022 FINDINGS: Images demonstrate a wire in the right ureter. IMPRESSION: 1. Instrumentation of the right ureter. Reviewed, dictated and finalized at location A. E EXAMINER
--- NOTE | 2022-05-14 06:35 | WPDHPUPDATE1 ---
History and Physical Update Update Date/Time: 05/14/22 06:35 History and Physical has been reviewed, including an updated exam of the patient. There are NO changes in the patient's condition. Risks, benefits, and alternatives have been discussed and questions answered. Patient agrees to proceed with procedure.
[2022-05-14] MEDS: LACTATED RINGERS 1,000 ML 30 ML IV CONT (10:28)
[2022-05-14 10:35] LABS: Glucose Point of Care 105 mg/dl (65-105)
--- NOTE | 2022-05-14 10:47 | P.PNAN_ITS ---
Anes - Initial Pre Proc Eval Procedure: Operation Date: 05/14/22 12:00 Proposed Procedures p Cystoscopy, Right Ureteroscopy, Possible Right Retrograde Pyelogram, Right Stone Extraction, Possible Right Stent Placement, Possible Holmium Laser Procedure - Warren Ornelas MD Date/Time: 05/14/22 10:47 Surgeon: Warren Ornelas MD Pre Op Diagnosis: right ureteral stone Patient Data Age: 36 Gender: M Height: 1.83 m Weight: 141 kg Allergies Allergy/AdvReac Type Severity Reaction Status Date / Time cefaclor Allergy Intermediate Hives Verified 05/14/22 10:09 Penicillins Allergy Intermediate Hives Verified 05/14/22 10:09 Home Medications Medication Instructions Recorded Confirmed Type lisinopril 20 1 tablet PO DAILY 06/26/20 05/14/22 History mg-hydrochlorothiazide 12.5 mg tablet montelukast 10 mg tablet 10 mg PO DAILY 06/26/20 05/14/22 History nortriptyline 25 mg capsule 25 mg PO HS 06/26/20 05/14/22 History tamsulosin 0.4 mg capsule (Flomax) 0.4 mg PO DAILY #10 caps 06/26/20 05/14/22 Rx verapamil 240 mg 24 hr 240 mg PO DAILY 06/26/20 05/14/22 History capsule,extended release tramadol 50 mg tablet 50 mg PO Q6H PRN pain #14 tabs 10/29/21 05/14/22 Rx ketorolac 10 mg tablet 10 mg PO Q6H PRN pain 5 days #20 04/30/22 05/14/22 Rx tabs oxycodone-acetaminophen 5 mg-325 1 tablet PO Q4H PRN pain #20 tabs 04/30/22 05/14/22 Rx mg tablet (Percocet) semaglutide 1 mg/dose (4 mg/3 mL) 1 mg subcut WEEKLY 05/11/22 05/14/22 History subcutaneous pen injector (Ozempic) Laboratory Tests 05/14/22 10:31 POC Capillary Glucose 105 mg/dl mg/dl (65-105) Patient hx anesthesia problems: none Family hx anesthesia problems: none Results Review: All pre-operative results and documents have been reviewed as part of the pre- operative evaluation. FORMERLY [facility], 1928–1983 Past Medical History Medical History Diabetes HTN (hypertension) Morbid obesity HAY (obstructive sleep apnea) Surgical History Surgical History (Updated 05/14/22 @ 10:47 by Roberto Carols Nicole MD) Hx of cystoscopy Social History Social History Smoking status: Never smoker Alcohol intake: never Alcohol use details: RARE Substance use: never Substance use type: does not use Living arrangements: with family Spiritual care concerns: No Anes - Eval Final PreProcedure Day of Procedure 05/14/22 10:47 Patient weight: morbidly obese Heart: regular rate and rhythm Lungs: clear to auscultation Airway: Mallampati scale class IV Neurological: alert and oriented Last oral intake: >/= 8 hours ASA classification: III Emergent: no Anesthetic plan: proceed Anesthesia type and monitoring: general LMA and standard monitoring Results Review: All pre-operative results and documents have been reviewed as part of the pre- operative evaluation. Informed Consent: The patient's anesthetic plan and its attendant risks and benefits were discussed with the patient/family/POA. Questions were solicited and answers provided to the satisfaction of the patient/family/POA.
[2022-05-14] MEDS: ceFAZolin 3 GM/D5W 100 ML 100 ML IVPB (12:25)
[2022-05-14] MEDS: LIDOCAINE HCL 2% GEL UROJET 10 ML PKG MUCOUS MEM (12:33)
[2022-05-14] MEDS: KETOROLAC 30 MG/ML VIAL (*BKC) IV PUSH (12:53)
--- NOTE | 2022-05-14 12:57 | W.PM.PROC2 ---
Procedure Note - Detailed Date of Procedure 05/14/22 Pre-op Diagnosis Right ureteral stone Post-op Diagnosis Same Procedure Performed Cystoscopy, right ureteroscopy with stone extraction Surgeon Warren Ornelas MD Anesthesia General Description of Procedure patient is brought to the operative suite where he was prepped draped in routine sterile fashion while in a dorsal lithotomy position. After the uneventful induction of a general anesthetic a 19 F rigid cystoscope was placed in his bladder. There was no urethral stricture but he does have a bit of a hypospadias. Bladder mucosa is normal without hyperemia or neoplasm. There was no intravesical foreign bodies. He has a single orthotopic ureteral orifice bilaterally. A 0.035 in glidewire was advanced into the renal pelvis and the distal ureter was dilated with with an 8 F 10 F dilator. I 1st did rigid ureteroscopy to the iliac vessels. There were still no stones in the distal ureter. Then replaced that with a 7.5 F flexible ureteral scope. His 3 mm stone still resides in the proximal ureter. I was able to extracted intact with a 1.9 F disposable stone basket. Review of the CT imaging shows no additional stones in the right kidney of any significance. I opted not to place ureteral stent. Scopes and wires removed he was taken recovery room good condition Estimated Blood Loss 0 Drains No
[2022-05-14 13:04] VITALS: BP 129/86; PULSE 97; RESP 20; TEMP 36.6; O2SAT 100
[2022-05-14 13:19] VITALS: BP 137/85; PULSE 90; RESP 17; O2SAT 95
[2022-05-14 13:19] LABS: Glucose Point of Care 91 mg/dl (65-105)
[2022-05-14 13:30] VITALS: BP 137/85; PULSE 90; RESP 17; O2SAT 95
[2022-05-14 13:36] VITALS: BP 119/76; PULSE 93; RESP 14; O2SAT 94
[2022-05-14 13:40] VITALS: BP 138/82; PULSE 84; RESP 14
[2022-05-14 14:15] VITALS: BP 132/86; PULSE 89; RESP 14
--- NOTE | 2022-05-15 09:04 | PM.HPGS ---
History of Present Illness History of Present Illness Consent: Risks, benefits, and alternatives have been discussed and questions answered. Patient agrees to proceed with procedure. Chief complaint: right ureteral stone Narrative: Warren Griffin is a 36 year old male with a previous history of urolithiasis who has had a problematic 3 mm right proximal stone past couple weeks has continued cause intermittent pain. He denies fevers chills or gross hematuria. Review of Systems Review of Systems: All systems reviewed & are unremarkable except as noted in HPI and below PMFSH Past Medical History Medical History (Updated 05/15/22 @ 09:06 by Warren Ornelas MD) Diabetes HTN (hypertension) Morbid obesity HAY (obstructive sleep apnea) Surgical History Surgical History (Updated 05/14/22 @ 10:47 by Roberto Carlos Nicole MD) Hx of cystoscopy Social History Social History Smoking status: Never smoker Alcohol intake: never Alcohol use details: RARE Substance use: never Substance use type: does not use Living arrangements: with family Spiritual care concerns: No Meds Home Medications and Allergies Home Medications Medication Instructions Recorded Confirmed Type lisinopril 20 1 tablet PO DAILY 06/26/20 05/14/22 History mg-hydrochlorothiazide 12.5 mg tablet montelukast 10 mg tablet 10 mg PO DAILY 06/26/20 05/14/22 History nortriptyline 25 mg capsule 25 mg PO HS 06/26/20 05/14/22 History tamsulosin 0.4 mg capsule (Flomax) 0.4 mg PO DAILY #10 caps 06/26/20 05/14/22 Rx verapamil 240 mg 24 hr 240 mg PO DAILY 06/26/20 05/14/22 History capsule,extended release tramadol 50 mg tablet 50 mg PO Q6H PRN pain #14 tabs 10/29/21 05/14/22 Rx ketorolac 10 mg tablet 10 mg PO Q6H PRN pain 5 days #20 04/30/22 05/14/22 Rx tabs oxycodone-acetaminophen 5 mg-325 1 tablet PO Q4H PRN pain #20 tabs 04/30/22 05/14/22 Rx mg tablet (Percocet) semaglutide 1 mg/dose (4 mg/3 mL) 1 mg subcut WEEKLY 05/11/22 05/14/22 History subcutaneous pen injector (Ozempic) ciprofloxacin HCl 500 mg tablet 500 mg PO Q12H #6 tabs 05/14/22 Rx hydrocodone 5 mg-acetaminophen 325 1 - 2 tablet PO Q6H PRN pain #12 05/14/22 Rx mg tablet tabs Allergies Allergy/AdvReac Type Severity Reaction Status Date / Time cefaclor Allergy Intermediate Hives Verified 05/14/22 10:09 Penicillins Allergy Intermediate Hives Verified 05/14/22 10:09 Vital Signs Vital Signs - 24 hr 05/14/22 13:04 05/14/22 13:19 05/14/22 13:30 Temperature 97.9 F Pulse Rate 97 90 90 Respiratory Rate 20 17 17 Blood Pressure 129/86 137/85 137/85 Pulse Oximetry 100 95 95 Oxygen Delivery Simple Face Mask Room Air Room Air Oxygen Flow Rate 10 05/14/22 13:36 05/14/22 13:40 05/14/22 14:15 Temperature Pulse Rate 93 84 89 Respiratory Rate 14 14 14 Blood Pressure 119/76 138/82 132/86 Pulse Oximetry 94 Oxygen Delivery Room Air Oxygen Flow Rate Exam Const: General: no acute distress Resp: Effort & Inspection: normal respiratory effort GI: Inspection: non-distended GI Palp: No abdominal tenderness and No Guarding due to palpation present (GI) Auscultation: normal bowel sounds Assessment and Plan Assessment and plan (1) Right ureteral stone: Code(s): N20.1 - Calculus of ureter Status: Acute Assessment and Plan: Cystoscopy, right ureteroscopy stone extraction possible lithotripsy retrograde and stent
== END 2022-05-14 14:15 | disposition home or self-care (01) ==
PROVIDERS: PCP Internal Medicine; Visit Provider Urology
PROC: (CPT 52352; principal; 2022-05-14 12:00)
DX: N20.1 Calculus of ureter (principal); I10 Essential (primary) hypertension; E11.9 Type 2 diabetes mellitus without complications; G47.33 Obstructive sleep apnea (adult) (pediatric); Z79.899 Other long term (current) drug therapy; E66.01 Morbid (severe) obesity due to excess calories; Z68.41 Body mass index [BMI] 40.0-44.9, adult
CPT/HCPCS: 52352; 82365; 82948; 88300; 99199; C1769; J0690; J1885; J2250; J2405; J2704; J3010; J7120

== ENCOUNTER → 2022-07-06 15:59 | Outpatient (CLI) | payer OTHER, SELFPAY ==
--- NOTE | ~2022-07-06 | MR_ITS ---
MRI of the cervical spine Clinical History: Neck pain Technique: Axial T2-weighted and gradient images, and sagittal T1-weighted, T2-weighted, and STIR delilah ges were acquired. Findings: There is reversal of the normal cervical lordosis. No fracture or subluxation identified. N o suspicious bone marrow signal abnormality identified. At C2-C3, there is no disc bulge or herniation. No spinal canal stenosis, cord compression, or neural foraminal narrowing. At C3-C4, there is minimal disc osteophyte complex. No spinal canal stenosis, cord compression, or ne ural foraminal narrowing. At C4-C5, there is small disc osteophyte complex. There is mild canal stenosis without nicole cord com pression. Bilateral neural foramina are preserved. At C5-C6, there is disc osteophyte complex most pronounced in the left paracentral region, with mild canal stenosis and mild cord compression, especially on the left side. Bilateral neural foramina are preserved. At C6-C7, there is minimal disc osteophyte complex. There is probable minimal canal stenosis without nicole cord compression. There is left neural foraminal narrowing. Right neural foramen is preserved. No abnormal signal seen in the spinal cord. Paravertebral soft tissues are unremarkable. Impression: Disc osteophyte complex at C5-C6, resulting in mild canal stenosis and cord compression, especially o n the left side. Minimal canal stenosis and left neural foraminal narrowing at C6-C7, without nicole cord compression. Reversal of the normal cervical lordosis. Reviewed, dictated and finalized at [facility]. Impression: Disc osteophyte complex at C5-C6, resulting in mild canal stenosis and cord com pression, especially on the left side. Minimal canal stenosis and left neural foraminal narrowing at C6-C7, without fr ank cord compression. Reversal of the normal cervical lordosis.
== END ==
PROVIDERS: PCP Internal Medicine; Visit Provider Neurological Surgery
DX: M25.78 Osteophyte, vertebrae (principal)
CPT/HCPCS: 72141

== ENCOUNTER 2022-08-06 07:35 | Outpatient (CLI) | payer OTHER, SELFPAY ==
--- NOTE | ~2022-08-06 | US_ITS ---
US abdomen limited INDICATION: Cirrhosis PROCEDURE: Realtime right upper abdominal ultrasound. COMPARISON: No prior studies for comparison. FINDINGS: The pancreas is normal without focal mass or pancreatic ductal dilation. Liver echotexture is increased, consistent with fatty infiltration. There is normal directional flow in the portal ve in. Gallbladder surgically absent. Common bile duct measures 5 mm. No sonographic Enrique's sign. IMPRESSION: 1: Hepatic steatosis. Reviewed, dictated and finalized at location D. IMPRESSION: 1: Hepatic steatosis.
[2022-08-06 07:52] LABS: Basophils Absolute Auto 0.03 K/mm3 (0.00-0.10); Basophils Percent Auto 0.7 % (0.0-1.0); Eosinophils Percent Auto 2.3 % (1.0-6.0); Hematocrit 45.3 % (40.0-54.0); Hemoglobin 15.7 g/dL (14.0-18.0); Immature Granulocyte Absolute 0.01 K/mm3 (0.00-0.00); Immature Granulocyte Percent A 0.2 % (0.0-0.0); Immature Platelet Fraction Pct 3.4 % (1.0-7.0); Lymphocytes Absolute Auto 1.52 K/mm3 (1.10-4.50); Lymphocytes Percent Auto 34.2 % (18.0-42.0); Mean Corpuscular HGB Conc 34.7 g/dL (32.0-36.0); Mean Corpuscular Hemoglobin 30.5 pg (27.0-31.0); Mean Platelet Volume 10.1 fl (8.7-11.0); Monocytes Absolute Auto 0.33 K/mm3 (0.10-0.90); Monocytes Percent Auto 7.4 % (2.0-11.0); Neutrophils Absolute Auto 2.5 K/mm3 (1.7-7.2); Neutrophils Percent Auto 55.2 % (50.0-70.0); Platelet Count Result 89 K/mm3 (150-420); Red Blood Count 5.15 M/mm3 (4.70-6.10); Red Cell Distribution Width 12.4 % (11.6-14.4); White Blood Count 4.4 K/mm3 (4.8-10.8)
[2022-08-06 08:10] LABS: INR 1.1; Prothrombin Time 12.2 Seconds (9.50-12.10)
[2022-08-06 08:40] LABS: Alanine Aminotransferase 47 U/L (16-63); Albumin Level 3.6 g/dL (3.4-5.0); Alkaline Phosphatase 64 U/L (46-116); Anion Gap 5 mmol/L (8-16); Aspartate Amino Transferase 41 U/L (15-37); Bilirubin,Total 1.5 mg/dL (0.00-1.00); Blood Urea Nitrogen 7 mg/dL (7-18); Calcium 8.6 mg/dL (8.5-10.1); Carbon Dioxide 32 mmol/L (21-32); Chloride 106 mmol/L (98-108); Estimated Glomerular Filt Rate > 60; Glucose 132 mg/dL (70-99); Osmolality Calculated 296 mOsm/kg (285-295); Potassium 3.9 mmol/L (3.5-5.1); Sodium 143 mmol/L (136-145); Total Protein 7.6 g/dL (6.4-8.2)
== END 2022-08-06 07:36 | disposition home or self-care (01) ==
PROVIDERS: PCP Internal Medicine
DX: K74.60 Unspecified cirrhosis of liver (principal); K76.0 Fatty (change of) liver, not elsewhere classified
CPT/HCPCS: 36415; 76705; 80053; 82105; 85025; 85055; 85610

== ENCOUNTER 2022-08-13 15:32 | Outpatient (RCR) | payer OTHER, SELFPAY ==
--- NOTE | 2022-08-13 16:00 | PTOPEVAL1 ---
Assessment and note entered by JT File, PT Evaluation Information Assessment Status Evaluation Diagnosis s/p R shoulder arthroscopy with mini open biceps tenodesis/labral repair Onset 07/16/22 Subjective Information patient reports he had surgery on the R shoudler 4 weeks ago today. he reports he is now coming to therapy for rehab. he just got out of the sling for the R shoulder. he reports he had progressively gotten worse in the R shoulder pain for years. 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 Reported Pain Level Pain Score 0: Self Report Assessment PT Clinical Summary mr. knox is a 37 yo man who presents to skilled PT s/p R shoulder arthroscopic labral repair and mini open biceps tenodesis. he presents today with decreased rom, weakness, and pain. he would benefit from continued skilled PT services to improve his objective/functional deficits and return to his prior level activity performance and quality of life. Plan of Care Interventions Electrical Stimulation,Hot Pack/Cold Pack,Manual Therapy,Neuro Re-education,Patient/Caregiver Educati,Therapeutic Activities,Therapeutic Exercise PT Services Indicated Yes Treatment Frequency and 2x weekly for 12 visits Duration These treatments will address the objective and functional deficits as defined above. The patient will be advanced safely and appropriately in order for the patient to progress towards his/her prior level of function. Additional exercises will be introduced and as well as a comprehensive home exercise program upon discharge, if needed, ?to ensure carryover of functional gains achieved in the clinic. This treatment plan has been reviewed and agreement upon by the patient.
--- NOTE | 2022-08-13 16:00 | OPREHPOC ---
Outpatient Therapy Plan of Care This is a Multidisciplinary Plan of Care that may contain components documented by all disciplines (PT, OT, and ST.) PT Problem 1 PT Problem #1 Knowledge Deficit PT Goal 1 Goal independent and compliant with HEP to improve tolerance for continued skilled PT and exercises Target Visit 6 PT Problem 2 PT Problem #2 Impaired Range of Motion PT Goal 1 Goal 1. arom R shoulder flexion to 160 degrees 2. arom R shoulder ER to 90 degrees 3. arom R shoulder IR to 70 degrees Target Visit 12 PT Problem 3 PT Problem #3 Impaired Strength PT Goal 1 Goal 1. improve R shoulder strength to 5/5 overall 2. improve R elbow strength to 5/5 Target Visit 12 PT Problem 4 PT Problem #4 Impaired Functional Mobil PT Goal 1 Goal 1. quick dash to display less than 10% functional deficits 2. patient to achieve equal L and R functional ER and IR reaching behind head and back 3. 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 patient to lift 50lbs from floor to waist to be safe to return to work 5. patient to climb ladders without pain or rom limitations Target Visit 12
--- NOTE | 2022-09-09 09:06 | PTOPPROG ---
Assessment and note entered by JT File, PT Evaluation Information Assessment Status Progress Diagnosis s/p R shoulder arthroscopy with mini open biceps tenodesis/labral repair Onset 07/16/22 Subjective Information patient reports the R shoulder is not too bad today. he reports pain a 2/10 in the shoulder today. he reports raising the arm forward is not an issues, but to his side is more problematic. he arrives to therapy with new orders for skilled PT . he is allowed to progress strengthening as tolerated beginning at 8 weeks post op (09/10/22). Assessment PT Clinical Summary mr. knox presents to skilled PT for his 9th skilled therapy visit. he presents with new orders to progress strengthening of the R shoulder as tolerated beginning 8 weeks post op which is 09/10. he displays progress in rom, hep performance, and pain management. he would do well to continued skilled PT with focus on progression of lifting and strength of the R shoulder to achieve all remaining goals. Plan of Care Interventions Electrical Stimulation,Hot Pack/Cold Pack,Manual Therapy,Neuro Re-education,Patient/Caregiver Educati,Therapeutic Activities,Therapeutic Exercise PT Services Indicated Yes Treatment Frequency and 2x weekly for 6 more visits Duration These treatments will address the objective and functional deficits as defined above. The patient will be advanced safely and appropriately in order for the patient to progress towards his/her prior level of function. Additional exercises will be introduced and as well as a comprehensive home exercise program upon discharge, if needed, ?to ensure carryover of functional gains achieved in the clinic. This treatment plan has been reviewed and agreement upon by the patient.
--- NOTE | 2022-09-09 09:07 | OPREHPOC ---
Outpatient Therapy Plan of Care This is a Multidisciplinary Plan of Care that may contain components documented by all disciplines (PT, OT, and ST.) PT Problem 1 PT Problem #1 Knowledge Deficit PT Goal 1 Goal independent and compliant with HEP to improve tolerance for continued skilled PT and exercises Target Visit 6 Progress Met PT Problem 2 PT Problem #2 Impaired Range of Motion PT Goal 1 Goal 1. arom R shoulder flexion to 160 degrees 2. arom R shoulder ER to 90 degrees 3. arom R shoulder IR to 70 degrees Target Visit 12 Progress Partially Met Comment met 1,2 PT Problem 3 PT Problem #3 Impaired Strength PT Goal 1 Goal 1. improve R shoulder strength to 5/5 overall 2. improve R elbow strength to 5/5 Target Visit 12 Progress Partially Met Comment will begin shoulder progressive strengthening on/ after 09/10/22 PT Problem 4 PT Problem #4 Impaired Functional Mobil PT Goal 1 Goal 1. quick dash to display less than 10% functional deficits 2. patient to achieve equal L and R functional ER and IR reaching behind head and back 3. 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 patient to lift 50lbs from floor to waist to be safe to return to work 5. patient to climb ladders without pain or rom limitations Target Visit 12 Comment continue all
--- NOTE | 2022-10-01 09:30 | PTOPREEVAL ---
Assessment and note entered by JT File, PT Evaluation Information Assessment Status Re-evaluation Diagnosis s/p R shoulder arthroscopy with mini open biceps tenodesis/labral repair Onset 07/16/22 Subjective Information patient reports he feels alright today. he reports he was a bit sore yesterday after having to help work around the house, and move a cow. he reports he continues to have weakness in the R shoulder and pain with increased activities. Reported Pain Level Pain Score 3: Self Report Assessment PT Clinical Summary mr. knox presents to skilled PT for his 15th skilled therapy visit. as of this date, he has achieved goals for rom and HEP performance. he has greatly progressed in strength of the R shoulder, but continues to lack full strength and functional lifting ability. he also reports pain in the R shoulder still with lifting and progressive use. he would benefit from continued skilled PT to meet more of his strength and functional goals to return to prior level home/ community/work functional activity participation/ performance. Plan of Care Interventions Manual Therapy,Neuro Re-education,Patient/ Caregiver Educati,Therapeutic Activities, Therapeutic Exercise PT Services Indicated Yes Treatment Frequency and continue skilled PT 2x weekly for 6 more visits Duration These treatments will address the objective and functional deficits as defined above. The patient will be advanced safely and appropriately in order for the patient to progress towards his/her prior level of function. Additional exercises will be introduced and as well as a comprehensive home exercise program upon discharge, if needed, ?to ensure carryover of functional gains achieved in the clinic. This treatment plan has been reviewed and agreement upon by the patient.
--- NOTE | 2022-10-01 09:30 | OPREHPOC ---
Outpatient Therapy Plan of Care This is a Multidisciplinary Plan of Care that may contain components documented by all disciplines (PT, OT, and ST.) PT Problem 1 PT Problem #1 Knowledge Deficit PT Goal 1 Goal independent and compliant with HEP to improve tolerance for continued skilled PT and exercises Target Visit 6 Progress Met PT Problem 2 PT Problem #2 Impaired Range of Motion PT Goal 1 Goal 1. arom R shoulder flexion to 160 degrees 2. arom R shoulder ER to 90 degrees 3. arom R shoulder IR to 70 degrees Target Visit 15 Progress Met Comment met 1,2 PT Problem 3 PT Problem #3 Impaired Strength PT Goal 1 Goal 1. improve R shoulder strength to 5/5 overall 2. improve R elbow strength to 5/5 Target Visit 21 Progress Partially Met Comment continue PT Problem 4 PT Problem #4 Impaired Functional Mobil PT Goal 1 Goal 1. quick dash to display less than 10% functional deficits 2. patient to achieve equal L and R functional ER and IR reaching behind head and back 3. 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 patient to lift 50lbs from floor to waist to be safe to return to work 5. patient to climb ladders without pain or rom limitations Target Visit 21 Progress Partially Met Comment met 2, 3 continue remaining
--- NOTE | 2022-10-21 13:16 | PTOPREEVAL ---
Assessment and note entered by JT File, PT Evaluation Information Assessment Status Re-evaluation Diagnosis s/p R shoulder arthroscopy with mini open biceps tenodesis/labral repair Onset 07/16/22 Subjective Information Patient reports slight pain in the R shoulder today, rating it 1/10. He notes having improved ROM since starting physical therapy. Patient still has limitations in overall strength to perform work and daily activities. Reported Pain Level Pain Score 1: Self Report Assessment PT Clinical Summary Mr. Griffin has attended 21 sessions of skilled PT to address s/p R shoulder arthroscopy with mini open biceps tenodesis/labral repair, making good progress towards goals. 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 With continued lifting activity and resistance to shoulder movements, he reports pain in the R shoulder limiting activity tolerance. At this date, patient presents with 27% functional decline according to Quick DASH assessment, showing difficulty with heavy household activity, recreational activities, and work duties. Patient would benefit from continued skilled PT to meet more of his strength and functional goals to return to prior level home/community/work functional activity participation/performance. Plan of Care Interventions Manual Therapy,Neuro Re-education,Patient/ Caregiver Educati,Therapeutic Activities, Therapeutic Exercise PT Services Indicated Yes Treatment Frequency and continue skilled PT 2x weekly for 8 more visits Duration These treatments will address the objective and functional deficits as defined above. The patient will be advanced safely and appropriately in order for the patient to progress towards his/her prior level of function. Additional exercises will be introduced and as well as a comprehensive home exercise program upon discharge, if needed, ?to ensure carryover of functional gains achieved in the clinic. This treatment plan has been reviewed and agreement upon by the patient.
--- NOTE | 2022-10-21 13:34 | OPREHPOC ---
Outpatient Therapy Plan of Care This is a Multidisciplinary Plan of Care that may contain components documented by all disciplines (PT, OT, and ST.) PT Problem 1 PT Problem #1 Knowledge Deficit PT Goal 1 Goal independent and compliant with HEP to improve tolerance for continued skilled PT and exercises Target Visit 6 Progress Met PT Problem 2 PT Problem #2 Impaired Range of Motion PT Goal 1 Goal 1. arom R shoulder flexion to 160 degrees 2. arom R shoulder ER to 90 degrees 3. arom R shoulder IR to 70 degrees Target Visit 15 Progress Met Comment met 1,2 PT Problem 3 PT Problem #3 Impaired Strength PT Goal 1 Goal 1. improve R shoulder strength to 5/5 overall 2. improve R elbow strength to 5/5 Target Visit 21 Progress Partially Met Comment elbow strength goal acheived, continue to progress shoulder strenghtening PT Problem 4 PT Problem #4 Impaired Functional Mobil PT Goal 1 Goal 1. quick dash to display less than 10% functional deficits 2. patient to achieve equal L and R functional ER and IR reaching behind head and back 3. 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 patient to lift 50lbs from floor to waist to be safe to return to work 5. patient to climb ladders without pain or rom limitations Target Visit 21 Progress Partially Met Comment met 2, 3 continue remaining
--- NOTE | 2022-11-18 10:16 | PCPTNOTE ---
patient cancelled therapy appointment today for an unknown reason. JTF
--- NOTE | 2023-01-19 16:33 | PCPTNOTE ---
patient discharged due to return to work at [employer]
== END 2022-11-12 23:59 | disposition home or self-care (01) ==
LOC: CHSPT 15:32
DX: Z48.89 Encounter for other specified surgical aftercare (principal); Z98.890 Other specified postprocedural states
CPT/HCPCS: 97014; 97110; 97112; 97140; 97150; 97161; 97530; G0283

== ENCOUNTER 2022-10-12 07:55 | Outpatient (CLI) | payer OTHER, SELFPAY ==
[2022-10-12 08:08] LABS: Appearance Urine Clear (Clear); Bilirubin Urine 1+ (Negative); Blood Urine Negative (Negative); Glucose Urine UA Negative (Negative); Ketones Urine Negative (Negative); Leukocyte Esterase Ur Negative (Negative); Nitrate Urine Negative (Negative); Protein Urine Trace (Negative); Specific Grav Ur >= 1.030 (1.010-1.020); pH Urine 5.5 (5.0-8.0)
[2022-10-12 08:10] LABS: Basophils Absolute Auto 0.02 K/mm3 (0.00-0.10); Basophils Percent Auto 0.4 % (0.0-1.0); Eosinophils Absolute Auto 0.09 K/mm3 (0.02-0.50); Eosinophils Percent Auto 1.9 % (1.0-6.0); Hematocrit 44.7 % (40.0-54.0); Hemoglobin 15.8 g/dL (14.0-18.0); Immature Granulocyte Absolute 0.02 K/mm3 (0.00-0.00); Immature Granulocyte Percent A 0.4 % (0.0-0.0); Immature Platelet Fraction Pct 4.2 % (1.0-7.0); Lymphocytes Absolute Auto 1.57 K/mm3 (1.10-4.50); Lymphocytes Percent Auto 32.6 % (18.0-42.0); Mean Corpuscular HGB Conc 35.3 g/dL (32.0-36.0); Mean Corpuscular Volume 87.8 fL (78.0-102.0); Mean Platelet Volume 10.7 fl (8.7-11.0); Monocytes Absolute Auto 0.41 K/mm3 (0.10-0.90); Monocytes Percent Auto 8.5 % (2.0-11.0); Neutrophils Absolute Auto 2.7 K/mm3 (1.7-7.2); Neutrophils Percent Auto 56.2 % (50.0-70.0); Platelet Count Result 86 K/mm3 (150-420); Red Blood Count 5.09 M/mm3 (4.70-6.10); Red Cell Distribution Width 12.3 % (11.6-14.4); White Blood Count 4.8 K/mm3 (4.8-10.8)
[2022-10-12 08:13] LABS: Add Urine Microscopic? YES; Bacteria Urine Trace /hpf; Color Urine Dark Yellow (Yellow); RBC Urine None seen /hpf (0-2); Squamous Epithelial Cell Urine Occasional /hpf (Few); WBC Urine None seen /hpf (0-3)
[2022-10-12 08:14] LABS: Mucus Urine Heavy /lpf
[2022-10-12 08:17] LABS: Hemoglobin A1C 5.3 % (<5.7)
[2022-10-12 09:22] LABS: Alanine Aminotransferase 41 U/L (16-63); Albumin Level 3.7 g/dL (3.4-5.0); Alkaline Phosphatase 69 U/L (46-116); Anion Gap 11 mmol/L (8-16); Aspartate Amino Transferase 44 U/L (15-37); Bilirubin,Total 1.8 mg/dL (0.00-1.00); Blood Urea Nitrogen 7 mg/dL (7-18); Calcium 8.5 mg/dL (8.5-10.1); Carbon Dioxide 26 mmol/L (21-32); Chloride 105 mmol/L (98-108); Cholesterol 83 mg/dL (0-200); Estimated Glomerular Filt Rate > 60; Glucose 141 mg/dL (70-99); HDL Direct 22 mg/dL (40-60); LDL Cholesterol Calculated 5 mg/dL (<130); Osmolality Calculated 294 mOsm/kg (285-295); Potassium 3.7 mmol/L (3.5-5.1); Sodium 142 mmol/L (136-145); Thyroid Stimulating Hormone 3.62 uIU/mL (0.36-3.74); Total Protein 7.6 g/dL (6.4-8.2); Triglycerides 279 mg/dL (0-150)
== END 2022-10-12 07:56 | disposition home or self-care (01) ==
LOC: CHSLAB 07:57
PROVIDERS: PCP Internal Medicine; Visit Provider Internal Medicine
DX: I10 Essential (primary) hypertension (principal); E78.5 Hyperlipidemia, unspecified; E11.9 Type 2 diabetes mellitus without complications
CPT/HCPCS: 36415; 80053; 80061; 81001; 83036; 84443; 85025; 85055

== ENCOUNTER 2022-12-04 11:27 | Outpatient (CLI) | payer OTHER, SELFPAY ==
[2022-12-04 11:58] LABS: Hematocrit 42.9 % (40.0-54.0); Hemoglobin 14.9 g/dL (14.0-18.0); Immature Platelet Fraction Pct 3.8 % (1.0-7.0); Mean Corpuscular HGB Conc 34.7 g/dL (32.0-36.0); Mean Corpuscular Hemoglobin 30.7 pg (27.0-31.0); Mean Corpuscular Volume 88.3 fL (78.0-102.0); Mean Platelet Volume 10.7 fl (8.7-11.0); Platelet Count Result 50 K/mm3 (150-420); Red Blood Count 4.86 M/mm3 (4.70-6.10); Red Cell Distribution Width 12.4 % (11.6-14.4); White Blood Count 1.8 K/mm3 (4.8-10.8)
[2022-12-04 12:13] LABS: Alanine Aminotransferase 82 U/L (16-63); Albumin Level 3.5 g/dL (3.4-5.0); Alkaline Phosphatase 60 U/L (46-116); Anion Gap 8 mmol/L (8-16); Aspartate Amino Transferase 93 U/L (15-37); Bilirubin,Total 1.6 mg/dL (0.00-1.00); Blood Urea Nitrogen 6 mg/dL (7-18); Calcium 8.2 mg/dL (8.5-10.1); Carbon Dioxide 27 mmol/L (21-32); Chloride 105 mmol/L (98-108); Estimated Glomerular Filt Rate > 60; Glucose 150 mg/dL (70-99); Osmolality Calculated 290 mOsm/kg (285-295); Potassium 3.9 mmol/L (3.5-5.1); Sodium 140 mmol/L (136-145); Total Protein 7.2 g/dL (6.4-8.2)
[2022-12-04 14:02] LABS: Band Neutrophils Percent 7 % (0-6); Basophils Percent Manual 0 % (0-1); Eosinophils Percent Manual 0 % (1-6); Lymphocytes Absolute Manual 1.08 K/mm3 (1.1-4.5); Lymphocytes Percent Manual 60 % (18-44); Monocytes Absolute Manual 0.07 K/mm3 (0.1-0.90); Monocytes Percent Manual 4 % (3-9); Neutrophils Absolute Manual 0.64 K/mm3 (1.3-6.7); Neutrophils Percent Manual 29 % (46-73); Platelet Estimate Decreased (Adequate); Total Cells Counted 100
[2022-12-04 14:51] LABS: SARS-CoV-2 RNA PCR Negative (Negative)
[2022-12-08 09:49] LABS: CMV IgM Antibody <30.00 AU/mL (<30.00)
[2022-12-09 07:02] LABS: Lyme Disease Ab (IgM), Blot Negative (Negative); Lyme Disease Ab(IgG), Blot Negative (Negative)
[2022-12-09 08:46] LABS: CMV IgG Antibody <0.60 U/mL (<0.60)
[2022-12-09 16:01] LABS: RMSF IgG Ttr Chg Test Yes
[2022-12-10 14:43] LABS: EBV Nuclear Ab Antibody >600.00 U/mL (<18.00); EBV Nuclear Ab Interpretation Past; EBV Virus Capsid Ag IgG Ab >750.00 U/mL (<18.00); EBV Virus Capsid Ag IgM Ab <36.00 U/mL (<36.00)
== END 2022-12-04 11:28 | disposition home or self-care (01) ==
PROVIDERS: PCP Internal Medicine; Visit Provider Internal Medicine
DX: R50.9 Fever, unspecified (principal); I10 Essential (primary) hypertension; D72.819 Decreased white blood cell count, unspecified; D69.6 Thrombocytopenia, unspecified
CPT/HCPCS: 36415; 80053; 85025; 85055; 86617; 86638; 86644; 86645; 86664; 86665; 86666; 86757; 87040; 87635

== ENCOUNTER 2022-12-11 16:18 | Outpatient (CLI) | payer OTHER, SELFPAY ==
[2022-12-11 16:44] LABS: Hematocrit 40.4 % (40.0-54.0); Hemoglobin 14.9 g/dL (14.0-18.0); Mean Corpuscular HGB Conc 36.9 g/dL (32.0-36.0); Mean Corpuscular Hemoglobin 32.1 pg (27.0-31.0); Mean Corpuscular Volume 87.1 fL (78.0-102.0); Mean Platelet Volume 10.8 fl (8.7-11.0); Platelet Count Result 93 K/mm3 (150-420); Red Blood Count 4.64 M/mm3 (4.70-6.10); Red Cell Distribution Width 12.5 % (11.6-14.4)
[2022-12-11 17:01] LABS: Alanine Aminotransferase 64 U/L (16-63); Albumin Level 3.4 g/dL (3.4-5.0); Alkaline Phosphatase 66 U/L (46-116); Anion Gap 8 mmol/L (8-16); Aspartate Amino Transferase 63 U/L (15-37); Bilirubin,Total 2.4 mg/dL (0.00-1.00); Blood Urea Nitrogen 9 mg/dL (7-18); Calcium 7.9 mg/dL (8.5-10.1); Carbon Dioxide 28 mmol/L (21-32); Chloride 104 mmol/L (98-108); Estimated Glomerular Filt Rate > 60; Glucose 131 mg/dL (70-99); Osmolality Calculated 290 mOsm/kg (285-295); Potassium 3.9 mmol/L (3.5-5.1); Sodium 140 mmol/L (136-145); Total Protein 7.2 g/dL (6.4-8.2)
[2022-12-11 17:13] LABS: Band Neutrophils Percent 5 % (0-6); Basophils Percent Manual 0 % (0-1); Eosinophils Absolute Manual 0.03 K/mm3 (0.02-0.5); Eosinophils Percent Manual 1 % (1-6); Lymphocytes Absolute Manual 1.71 K/mm3 (1.1-4.5); Lymphocytes Percent Manual 45 % (18-44); Monocytes Absolute Manual 0.11 K/mm3 (0.1-0.90); Monocytes Percent Manual 3 % (3-9); Neutrophils Absolute Manual 1.93 K/mm3 (1.3-6.7); Neutrophils Percent Manual 46 % (46-73); Total Cells Counted 100
[2022-12-11 17:14] LABS: Platelet Estimate Decreased (Adequate); White Blood Count 3.8 K/mm3 (4.8-10.8)
== END 2022-12-11 16:19 | disposition home or self-care (01) ==
LOC: CHSLAB 16:20
PROVIDERS: PCP Internal Medicine; Visit Provider Internal Medicine
DX: D72.819 Decreased white blood cell count, unspecified (principal)
CPT/HCPCS: 36415; 80053; 85025

== ENCOUNTER 2022-12-25 16:34 | Outpatient (CLI) | payer OTHER, SELFPAY ==
[2022-12-25 17:00] LABS: Basophils Absolute Auto 0.02 K/mm3 (0.00-0.10); Basophils Percent Auto 0.5 % (0.0-1.0); Eosinophils Absolute Auto 0.04 K/mm3 (0.02-0.50); Hematocrit 44.3 % (40.0-54.0); Hemoglobin 15.4 g/dL (14.0-18.0); Immature Granulocyte Absolute 0.01 K/mm3 (0.00-0.00); Immature Granulocyte Percent A 0.2 % (0.0-0.0); Immature Platelet Fraction Pct 4.3 % (1.0-7.0); Lymphocytes Absolute Auto 1.04 K/mm3 (1.10-4.50); Lymphocytes Percent Auto 24.9 % (18.0-42.0); Mean Corpuscular HGB Conc 34.8 g/dL (32.0-36.0); Mean Corpuscular Hemoglobin 30.6 pg (27.0-31.0); Mean Corpuscular Volume 88.1 fL (78.0-102.0); Mean Platelet Volume 10.7 fl (8.7-11.0); Monocytes Absolute Auto 0.47 K/mm3 (0.10-0.90); Monocytes Percent Auto 11.3 % (2.0-11.0); Neutrophils Absolute Auto 2.6 K/mm3 (1.7-7.2); Neutrophils Percent Auto 62.1 % (50.0-70.0); Platelet Count Result 81 K/mm3 (150-420); Red Blood Count 5.03 M/mm3 (4.70-6.10); Red Cell Distribution Width 12.5 % (11.6-14.4); White Blood Count 4.2 K/mm3 (4.8-10.8)
== END 2022-12-25 16:35 | disposition home or self-care (01) ==
LOC: CHSLAB 16:35
PROVIDERS: PCP Internal Medicine; Visit Provider Internal Medicine
DX: D72.819 Decreased white blood cell count, unspecified (principal); D69.6 Thrombocytopenia, unspecified
CPT/HCPCS: 36415; 85025; 85055; 86666

== ENCOUNTER 2022-12-28 14:15 | Outpatient (CLI) | payer OTHER, SELFPAY ==
--- NOTE | ~2022-12-28 | XR_ITS ---
EXAMINATION: XR thoracic spine 3V DATE: 12/28/2022 14:32 INDICATION: Lower thoracic spine pain. TECHNIQUE: 3 views of thoracic spine on 6 radiographs were obtained. COMPARISON: Thoracic spine radiographs 03/09/2014 FINDINGS: There is 8 degrees levocurvature of upper thoracic spine. Vertebral body heights and interv ertebral disc heights are normal. There are endplate osteophytes at most levels. There is multilevel facet joint osteoarthritis. IMPRESSION: 1. Mild thoracic spondylosis. Reviewed, dictated and finalized at location A.
== END 2022-12-28 14:16 | disposition home or self-care (01) ==
LOC: CHSIMG 14:16
PROVIDERS: PCP Internal Medicine; Visit Provider Internal Medicine
DX: M54.6 Pain in thoracic spine (principal); M43.04 Spondylolysis, thoracic region
CPT/HCPCS: 72072

== ENCOUNTER 2023-02-03 07:15 | Outpatient (CLI) | payer OTHER, SELFPAY ==
--- NOTE | ~2023-02-03 | US_ITS ---
Limited Abdominal Sonogram: Real-time sonographic imaging of the right upper quadrant was performed. Clinical History: TAN, cirrhosis Findings: The liver appears echogenic, with no evidence of mass lesion or bile duct dilatation. Main portal vein demonstrates normal direction of flow. The gallbladder is absent, compatible prior georgette cystotomy. The common bile duct measures 4 mm. The visualized pancreas, aorta, and IVC are unremarka ble. Impression: Diffuse fatty infiltration of the liver. Prior cholecystectomy. Reviewed, dictated and finalized at location . [employer] Impression: Diffuse fatty infiltration of the liver. Prior cholecystectomy.
[2023-02-03 07:34] LABS: Basophils Absolute Auto 0.02 K/mm3 (0.00-0.10); Basophils Percent Auto 0.5 % (0.0-1.0); Eosinophils Absolute Auto 0.09 K/mm3 (0.02-0.50); Eosinophils Percent Auto 2.2 % (1.0-6.0); Hematocrit 44.1 % (40.0-54.0); Hemoglobin 15.4 g/dL (14.0-18.0); Immature Granulocyte Absolute 0.01 K/mm3 (0.00-0.00); Immature Granulocyte Percent A 0.2 % (0.0-0.0); Immature Platelet Fraction Pct 4.2 % (1.0-7.0); Lymphocytes Absolute Auto 1.52 K/mm3 (1.10-4.50); Lymphocytes Percent Auto 37.2 % (18.0-42.0); Mean Corpuscular HGB Conc 34.9 g/dL (32.0-36.0); Mean Corpuscular Hemoglobin 30.3 pg (27.0-31.0); Mean Corpuscular Volume 86.8 fL (78.0-102.0); Mean Platelet Volume 10.1 fl (8.7-11.0); Monocytes Absolute Auto 0.34 K/mm3 (0.10-0.90); Monocytes Percent Auto 8.3 % (2.0-11.0); Neutrophils Absolute Auto 2.1 K/mm3 (1.7-7.2); Neutrophils Percent Auto 51.6 % (50.0-70.0); Platelet Count Result 88 K/mm3 (150-420); Red Blood Count 5.08 M/mm3 (4.70-6.10); White Blood Count 4.1 K/mm3 (4.8-10.8)
[2023-02-03 07:46] LABS: INR 1.1; Prothrombin Time 12.1 Seconds (9.50-12.10)
[2023-02-03 08:02] LABS: Alanine Aminotransferase 71 U/L (16-63); Albumin Level 3.7 g/dL (3.4-5.0); Alkaline Phosphatase 78 U/L (46-116); Anion Gap 4 mmol/L (8-16); Aspartate Amino Transferase 56 U/L (15-37); Bilirubin,Total 2.6 mg/dL (0.00-1.00); Blood Urea Nitrogen 6 mg/dL (7-18); Calcium 8.3 mg/dL (8.5-10.1); Carbon Dioxide 33 mmol/L (21-32); Chloride 103 mmol/L (98-108); Estimated Glomerular Filt Rate > 60; Glucose 111 mg/dL (70-99); Osmolality Calculated 288 mOsm/kg (285-295); Potassium 3.8 mmol/L (3.5-5.1); Sodium 140 mmol/L (136-145); Total Protein 7.6 g/dL (6.4-8.2)
[2023-02-12 16:27] LABS: Alpha Fetoprotein Tumor Marker 8.5 ng/mL (<6.1)
== END 2023-02-03 07:16 | disposition home or self-care (01) ==
PROVIDERS: PCP Internal Medicine
DX: K74.60 Unspecified cirrhosis of liver (principal); K76.0 Fatty (change of) liver, not elsewhere classified; Z90.49 Acquired absence of other specified parts of digestive tract
CPT/HCPCS: 36415; 76705; 80053; 82105; 85025; 85055; 85610

== ENCOUNTER 2023-04-23 16:50 | Outpatient (CLI) | payer OTHER, SELFPAY ==
[2023-04-23 17:13] LABS: Hemoglobin A1C 5.2 % (<5.7)
[2023-04-23 17:28] LABS: Thyroid Stimulating Hormone 2.14 uIU/mL (0.36-3.74)
== END 2023-04-23 16:51 | disposition home or self-care (01) ==
LOC: CHSLAB 16:53
PROVIDERS: PCP Internal Medicine
DX: E66.01 Morbid (severe) obesity due to excess calories (principal); Z68.42 Body mass index [BMI] 45.0-49.9, adult
CPT/HCPCS: 36415; 83036; 84443

== ENCOUNTER 2023-06-04 08:50 | Outpatient (CLI) | payer OTHER, SELFPAY ==
--- NOTE | 2023-06-21 17:24 | WPDSLEEPSTUD ---
Sleep Study Date of Study: 06/04/23 Ordering Provider: Lev Mccarty APRN Interpreting Physician: Vaishali Dunn, Sleep Study Type: BiPAP Titration Height: 1.83 m Weight: 147.418 kg Body Mass Index: 44.0 Neck Circumference (inches): 20 [place]: 11 Reason for Sleep Study Sleep Study 01/25/14 @ [place] ? severe sleep apnea, AHI 36.2; recommend CPAP 9cmH2O. No PLMD noted. He had a Titration study done in 2016 in [place], [place] where he was prescribed APAP. He stopped using it in 2019 because he didn't think it was helping. Sleep History The patient is a 37 year old male with hypertension, Type 2 DM, depression, fatty liver and previously diagnosed sleep apnea that had a sleep study ordered by the pulmonary group to get the patient restarted on PAP therapy. the patient denies awakening from sleep short of breath. He rarely awakens at night with heartburn, belching or cough. He frequently snores and is frequently loud enough others complain. He denies having trouble sleeping when he has a cold. He denies suddenly waking up gasping for air throughout night. He denies having breathing problems at night observed by himself or others. He denies sweating excessively at night. He denies having heart palpitations or irregular heartbeats during the night. He occasionally falls asleep during the day but never while driving. He denies sleep paralysis, cataplexy and hypnagogic / hypnopompic hallucinations. He rarely has trouble at school or work due to sleepiness. He denies feeling afraid of going to sleep. He rarely has nightmares. He occasionally remembers his dreams. He constantly has thoughts racing through his mind. He occasionally feels sad, depressed and anxious. He rarely has muscular tension. He rarely notices parts of his body jerk. He rarely kicks during the night. He denies having crawling and aching feelings in his legs and denies having leg pain during the night. He denies grinding his teeth during sleep and denies awakening with morning jaw pain. He is occasionally bothered by pain during the day but rarely awakened by pain during the night. He constantly wakes up feeling stiff in the morning. He denies waking up with sore or achy muscles. He constantly wakes up with pain in the neck, spine or other joints. He goes to bed at 11:00 p.m. on weekdays and midnight on the weekends. It takes him 3 minutes to fall asleep. He wakes up 1-2 times throughout the night to change position and is able to fall back asleep within a few minutes. He wakes up at 5:30 a.m. on weekdays and 7:00 a.m. on the weekends. He typically gets 5-6 hours of sleep per night. He will stay in bed for 5-10 minutes after waking up in the morning. He currently lives with his and 3 children. He denies consuming any caffeinated beverages within 2 hours of bedtime. He denies engaging in physical exercise before bedtime. He will watch television before falling asleep. He will take naps in the afternoon or the evening and they are refreshing. He will consume caffeinated beverages throughout the day. He denies tobacco, alcohol and recreational drug use. [facility] Past Medical History Medical History (Updated 06/21/23 @ 17:40 by Vaishali Dunn DO) Diabetes HTN (hypertension) Morbid obesity HAY (obstructive sleep apnea) Surgical History Surgical History Hx of cystoscopy Social History Social History Smoking status: Never smoker Alcohol intake: never Alcohol use details: RARE Substance use: never Substance use type: does not use Living arrangements: with family Spiritual care concerns: No Medications Home Medications Medication Instructions Recorded Confirmed Type lisinopril 20 1 tablet PO DAILY 06/26/20 04/23/23 History mg-hydrochlorothiazide 12.5 mg tablet montelukast 10 mg tablet 10
[2023-06-21 17:34] VITALS: BMI 44.0
== END 2023-06-05 07:03 | disposition home or self-care (01) ==
LOC: ANHCSM 08:51
PROVIDERS: PCP Internal Medicine; Visit Provider Nurse Practitioner Family
DX: G47.30 Sleep apnea, unspecified (principal); G47.33 Obstructive sleep apnea (adult) (pediatric)
CPT/HCPCS: 95811

== ENCOUNTER 2023-07-30 08:44 | Outpatient (CLI) | payer OTHER, SELFPAY ==
--- NOTE | ~2023-07-30 | US_ITS ---
Limited Abdominal Sonogram: Real-time sonographic imaging of the right upper quadrant was performed. Clinical History: Cirrhosis Findings: The liver appears echogenic, with no evidence of mass lesion or bile duct dilatation. Main portal vein demonstrates normal direction of flow. The gallbladder is absent, compatible with prior cholecystectomy. The common bile duct measures 7 mm. The visualized pancreas, aorta, and IVC are unr emarkable. Impression: Diffuse fatty infiltration of the liver versus other chronic liver disease. Status post cholecystectomy. Reviewed, dictated and finalized at location . Impression: Diffuse fatty infiltration of the liver versus other chronic liver disease. Status post cholecystectomy.
== END 2023-07-30 08:45 | disposition home or self-care (01) ==
PROVIDERS: PCP Internal Medicine; Visit Provider Nurse Practitioner
DX: K75.81 Nonalcoholic steatohepatitis (NASH) (principal); K74.60 Unspecified cirrhosis of liver; Z90.49 Acquired absence of other specified parts of digestive tract
CPT/HCPCS: 76705

== ENCOUNTER 2023-07-31 07:51 | Outpatient (CLI) | payer OTHER, SELFPAY ==
[2023-07-31 08:10] LABS: Basophils Absolute Auto 0.03 K/mm3 (0.00-0.10); Basophils Percent Auto 0.7 % (0.0-1.0); Eosinophils Absolute Auto 0.08 K/mm3 (0.02-0.50); Eosinophils Percent Auto 1.8 % (1.0-6.0); Hematocrit 44.2 % (40.0-54.0); Hemoglobin 15.2 g/dL (14.0-18.0); Immature Granulocyte Absolute 0.02 K/mm3 (0.00-0.00); Immature Granulocyte Percent A 0.4 % (0.0-0.0); Immature Platelet Fraction Pct 4.9 % (1.0-7.0); Lymphocytes Absolute Auto 1.36 K/mm3 (1.10-4.50); Lymphocytes Percent Auto 29.8 % (18.0-42.0); Mean Corpuscular HGB Conc 34.4 g/dL (32-36); Mean Corpuscular Hemoglobin 29.4 pg (27.0-31.0); Mean Corpuscular Volume 85.5 fL (78.0-102.0); Mean Platelet Volume 10.8 fl (8.7-11.0); Monocytes Absolute Auto 0.33 K/mm3 (0.10-0.90); Monocytes Percent Auto 7.2 % (2.0-11.0); Neutrophils Absolute Auto 2.74 K/mm3 (1.70-7.20); Neutrophils Percent Auto 60.1 % (50.0-70.0); Platelet Count Result 81 K/mm3 (150-420); Red Blood Count 5.17 M/mm3 (4.70-6.10); Red Cell Distribution Width 12.3 % (11.6-14.4); White Blood Count 4.6 K/mm3 (4.8-10.8)
[2023-07-31 08:22] LABS: Prothrombin Time 10.9 Seconds (9.50-12.1)
[2023-07-31 08:36] LABS: Alanine Aminotransferase 50 U/L (16-63); Albumin Level 3.8 g/dL (3.4-5.0); Alkaline Phosphatase 60 U/L (46-116); Anion Gap 7 mmol/L (4-12); Aspartate Amino Transferase 40 U/L (15-37); Bilirubin,Total 1.6 mg/dL (0.00-1.00); Blood Urea Nitrogen 11 mg/dL (7-18); Calcium 8.5 mg/dL (8.5-10.1); Carbon Dioxide 31 mmol/L (21-32); Chloride 105 mmol/L (98-108); Estimated Glomerular Filt Rate > 60; Glucose 119 mg/dL (70-99); Osmolality Calculated 296 mOsm/kg (285-295); Potassium 3.8 mmol/L (3.5-5.1); Sodium 143 mmol/L (136-145); Total Protein 7.6 g/dL (6.4-8.2)
[2023-08-02 06:34] LABS: Alpha Fetoprotein Tumor Marker 6.9 ng/mL (<6.1)
== END 2023-07-31 07:52 | disposition home or self-care (01) ==
LOC: CHSLAB 07:54
PROVIDERS: PCP Internal Medicine; Visit Provider Nurse Practitioner
DX: K75.81 Nonalcoholic steatohepatitis (NASH) (principal); K74.60 Unspecified cirrhosis of liver
CPT/HCPCS: 36415; 80053; 82105; 85025; 85055; 85610

== ENCOUNTER 2023-10-30 08:01 | Outpatient (CLI) | payer OTHER, SELFPAY ==
[2023-10-30 11:13] LABS: Hematocrit 42.7 % (40.0-54.0); Hemoglobin 15.1 g/dL (14.0-18.0); Immature Platelet Fraction Pct 4.8 % (1.0-7.0); Mean Corpuscular HGB Conc 35.4 g/dL (32-36); Mean Corpuscular Hemoglobin 30.2 pg (27.0-31.0); Mean Corpuscular Volume 85.4 fL (78.0-102.0); Mean Platelet Volume 10.9 fl (8.7-11.0); Platelet Count Result 79 K/mm3 (150-420); Red Cell Distribution Width 12.3 % (11.6-14.4)
[2023-10-30 13:34] LABS: Alanine Aminotransferase 61 U/L (16-63); Albumin Level 3.6 g/dL (3.4-5.0); Alkaline Phosphatase 70 U/L (46-116); Anion Gap 11 mmol/L (4-12); Aspartate Amino Transferase 42 U/L (15-37); Bilirubin,Total 1.8 mg/dL (0.00-1.00); Blood Urea Nitrogen 7 mg/dL (7-18); Calcium 8.2 mg/dL (8.5-10.1); Carbon Dioxide 25 mmol/L (21-32); Chloride 106 mmol/L (98-108); Cholesterol 76 mg/dL (0-200); Estimated Glomerular Filt Rate > 60; Glucose 110 mg/dL (70-99); HDL Direct 23 mg/dL (40-60); LDL Cholesterol Calculated 3 mg/dL (<130); Osmolality Calculated 293 mOsm/kg (285-295); Potassium 3.7 mmol/L (3.5-5.1); Sodium 142 mmol/L (136-145); Thyroid Stimulating Hormone 2.42 uIU/mL (0.36-3.74); Total Protein 7.5 g/dL (6.4-8.2); Triglycerides 248 mg/dL (0-150)
== END 2023-10-30 08:02 | disposition home or self-care (01) ==
PROVIDERS: PCP Internal Medicine; Visit Provider Internal Medicine
DX: Z00.00 Encounter for general adult medical examination without abnormal findings (principal); E11.65 Type 2 diabetes mellitus with hyperglycemia; E78.5 Hyperlipidemia, unspecified
CPT/HCPCS: 36415; 80053; 80061; 83036; 84443; 85027; 85055

== ENCOUNTER 2023-11-23 16:51 | Outpatient (CLI) | payer OTHER, SELFPAY ==
[2023-11-23 17:22] LABS: Ammonia 42 umol/L (11-32)
[2023-11-25 16:08] LABS: Lyme Disease Ab (IgM), Blot NEGATIVE (NEGATIVE); Lyme Disease Ab(IgG), Blot NEGATIVE (NEGATIVE)
[2023-11-28 23:19] LABS: RMSF IgG Ttr Chg Test Yes
== END 2023-11-23 16:52 | disposition home or self-care (01) ==
LOC: CHSLAB 16:53
PROVIDERS: PCP Internal Medicine; Visit Provider Internal Medicine
DX: R53.83 Other fatigue (principal); K74.60 Unspecified cirrhosis of liver; W57.XXXA Bitten or stung by nonvenomous insect and other nonvenomous arthropods, initial encounter
CPT/HCPCS: 36415; 82140; 86617; 86638; 86666; 86757

== ENCOUNTER 2024-02-05 09:35 | Outpatient (CLI) | payer OTHER, SELFPAY ==
[2024-02-05 10:12] LABS: Hematocrit 44.1 % (40.0-54.0); Hemoglobin 15.6 g/dL (14.0-18.0); Mean Corpuscular HGB Conc 35.4 g/dL (32-36); Mean Corpuscular Hemoglobin 30.6 pg (27.0-31.0); Mean Corpuscular Volume 86.5 fL (78.0-102.0); Mean Platelet Volume 10.8 fl (8.7-11.0); Platelet Count Result 80 K/mm3 (150-420); Red Cell Distribution Width 12.2 % (11.6-14.4); White Blood Count 3.6 K/mm3 (4.8-10.8)
[2024-02-05 10:22] LABS: INR 1.1; Prothrombin Time 12.3 Seconds (9.50-12.1)
[2024-02-05 10:29] LABS: Alanine Aminotransferase 59 U/L (16-63); Albumin Level 3.9 g/dL (3.4-5.0); Alkaline Phosphatase 68 U/L (46-116); Anion Gap 7 mmol/L (4-12); Aspartate Amino Transferase 49 U/L (15-37); Blood Urea Nitrogen 6 mg/dL (7-18); Calcium 8.8 mg/dL (8.5-10.1); Carbon Dioxide 30 mmol/L (21-32); Chloride 105 mmol/L (98-108); Cholesterol 87 mg/dL (0-200); Estimated Glomerular Filt Rate > 60; Glucose 99 mg/dL (70-99); HDL Direct 27 mg/dL (40-60); LDL Cholesterol Calculated 29 mg/dL (<130); Osmolality Calculated 291 mOsm/kg (285-295); Potassium 4.2 mmol/L (3.5-5.1); Sodium 142 mmol/L (136-145); Total Protein 7.6 g/dL (6.4-8.2); Triglycerides 157 mg/dL (0-150)
[2024-02-05 10:38] LABS: Band Neutrophils Percent 0 % (0-6); Basophils Percent Manual 0 % (0-1); Eosinophils Percent Manual 0 % (1-6); Lymphocytes Absolute Manual 1.47 K/mm3 (1.1-4.5); Lymphocytes Percent Manual 41 % (18-44); Monocytes Absolute Manual 0.25 K/mm3 (0.1-0.90); Monocytes Percent Manual 7 % (3-9); Neutrophils Absolute Manual 1.87 K/mm3 (1.3-6.7); Neutrophils Percent Manual 52 % (46-73); Platelet Estimate Decreased (Adequate); Total Cells Counted 100
[2024-02-09 12:08] LABS: Alpha Fetoprotein Tumor Marker 7.8 ng/mL (<6.1)
== END 2024-02-05 09:36 | disposition home or self-care (01) ==
LOC: CHSLAB 09:38
PROVIDERS: PCP Internal Medicine; Visit Provider Nurse Practitioner
DX: K75.81 Nonalcoholic steatohepatitis (NASH) (principal); K74.60 Unspecified cirrhosis of liver
CPT/HCPCS: 36415; 80053; 80061; 82105; 85025; 85055; 85610

== ENCOUNTER 2024-02-11 10:03 | Outpatient (CLI) | payer OTHER, SELFPAY ==
--- NOTE | ~2024-02-11 | US_ITS ---
EXAMINATION: US abdomen limited DATE: 02/11/2024 10:22 INDICATION: Liver cirrhosis. TECHNIQUE: Multiple grayscale and Doppler ultrasound images of the abdomen were obtained. COMPARISON: Ultrasound abdomen 07/30/2023, CT abdomen and pelvis 05/05/2022 FINDINGS: The visualized portions of the head and body of the pancreas are normal. The liver demonstr ates coarsened echotexture and surface nodularity, consistent with cirrhosis. There is normal flow in main portal vein. The gallbladder is absent. The common duct is normal and measures 4 mm. IMPRESSION: 1. Cirrhosis of the liver. Reviewed, dictated and finalized at location A. H WASHER IMPRESSION: 1. Cirrhosis of the liver.
== END 2024-02-11 10:04 | disposition home or self-care (01) ==
LOC: CHSIMG 10:05
PROVIDERS: PCP Internal Medicine; Visit Provider Nurse Practitioner
DX: K75.81 Nonalcoholic steatohepatitis (NASH) (principal); K74.60 Unspecified cirrhosis of liver
CPT/HCPCS: 76705

== ENCOUNTER 2024-03-18 19:54 | Outpatient (CLI) | payer OTHER, SELFPAY ==
--- NOTE | 2024-04-08 19:33 | P.SLEEP_ITS ---
Sleep Study Date of Study: 03/18/24 Ordering Provider: CAMERON Wilson Interpreting Physician: Vaishali Dunn DO Sleep Study Type: BiPAP Titration Height: 1.83 m Weight: 147.418 kg Body Mass Index: 44.0 Neck Circumference (inches): 20 [place]: 6 Reason for Sleep Study Difficulty tolerating AutoPAP 17-20 cm H2O. Sleep History The patient is a 38 year old male with hypertension, Type 2 DM, depression, fa tty liver and previously diagnosed sleep apnea that had a sleep study ordered by the pulmonary group to get the patient restarted on PAP therapy. the patient denies awakening from sleep short of breath. He rarely awakens at night with heartburn, belching or cough. He frequently snores and is frequently loud enough others complain. He denies having trouble sleeping when he has a cold. He denies suddenly waking up gasping for air throughout night. He denies having breathing problems at night observed by himself or others. He denies sweating excessively at night. He denies having heart palpitations or irregular heartbeats during the night. He occasionally falls asleep during the day but never while driving. He denies sleep paralysis, cataplexy and hypnagogic / hypnopompic hallucinations. He rarely has trouble at school or work due to sleepiness. He denies feeling afraid of going to sleep. He rarely has nightmares. He occasionally remembers his dreams. He constantly has thoughts racing through his mind. He occasionally feels sad, depressed and anxious. He rarely has muscular tension. He rarely notices parts of his body jerk. He rarely kicks during the night. He denies having crawling and aching feelings in his legs and denies having leg pain during the night. He denies grinding his teeth during sleep and denies awakening with morning jaw pain. He is occasional ly bothered by pain during the day but rarely awakened by pain during the night. He constantly wakes up feeling stiff in the morning. He denies waking up with sore or achy muscles. He constantly wakes up with pain in the neck, spine or other joints. He goes to bed at 11:00 p.m. on weekdays and midnight on the weekends. It takes him 3 minutes to fall asleep. He wakes up 1-2 times throughout the night to change position and is able to fall back asleep within a few minutes. He wakes up at 5:30 a.m. on weekdays and 7:00 a.m. on the weekends. He typically gets 5- 6 hours of sleep per night. He will stay in bed for 5-10 minutes after waking up in the morning. He currently lives with his and 3 children. He denies consuming any caffeinated beverages within 2 hours of bedtime. He denies engaging in physical exercise before bedtime. He will watch television before falling asleep. He will take naps in the afternoon or the evening and they are refreshing. He will consume caffeinated beverages throughout the day. He denies tobacco, alcohol and recreational drug use. [facility] Past Medical History Medical History HAY (obstructive sleep apnea) Diabetes HTN (hypertension) Morbid obesity Surgical History Surgical History Hx of cystoscopy Social History Social History Smoking status: Never smoker Alcohol intake: never Alcohol use details: RARE Substance use: never Substance use type: does not use Living arrangements: with family Spiritual care concerns: No Medications Home Medications ?Medication ?Instructions ?Recorded ?Confirmed ?Type lisinopril 20 1 tablet PO DAILY 06/26/20 01/12/24 History mg-hydrochlorothiazide 12.5 mg tablet montelukast 10 mg tablet 10 mg PO DAILY 06/26/20 01/12/24 History nortriptyline 25 mg capsule 25 mg PO HS 06/26/20 01/12/24 History verapamil 240 mg 24 hr 240 mg PO DAILY 06/26/20 01/12/24 History capsule,extended release tirzepatide 12.5 mg/0.5 mL mg subcut 01/12/24 01/12/24 History subcutaneous pen injector (Mounjaro) zolpidem 10 mg tablet 10 mg PO ONCE #2 tabs 01/12/24 01/12/24 Rx Sleep Procedure A full night BPAP Titration using the [employer] SleepAmlogic multi-channel system recorded the standard physiologic parameters including EEG, EOG, submentalis E MG, anterior tibialis EMG, EKG, body position, nasal and oral airflow using nasal pressure sensor and thermistor.? Respiratory parameters of chest and abdominal movements were recorded with Respiratory Inductance Plethysmography belts. Oxygen saturation was recorded by pulse oximetry. Video monitoring was also performed. Sleep stages, periodic limb movements, and EEG arousals were scored in 30 second epochs according to the criteria of the AASM Scoring Manual. The Apnea-Hypopnea Index was calculated using CMS guidelines for definition of hypopnea with 4% O2 desaturations while scoring respiratory events. Sleep Architecture The total recording time was 437.1 minutes.? The total sleep time was 405.5 minutes. Sleep latency was 5.0 minutes. REM latency was 138.0 minutes. Sleep efficiency was 92.8%. The patient had 29 awakenings for an awakening index of 4.3. Wake after Sleep Onset time was 26.5 minutes. The patient spent 39.5 minutes, 9.7% of total sleep time in Stage N1. The patient spent 261.5 minutes, 64.5% in Stage N2. The patient spent 48.5 minutes, 12.0% in Stage N3. The patient spent 56.0 minutes, 13.8% in Stage REM. Respiratory Analysis The patient had 60 hypopneas, 44 obstructive apneas, 3 mixed apneas, and 6 central apneas for an overall Apnea Hypopnea Index of 16.7 events per hour. The REM Apnea Hypopnea Index was 3.2. The NREM Apnea Hypopnea Index was 18.9. The patient had a Central Apnea Hypopnea Index of 0.9. There was no evidence of Dequan-Little Respirations. The patient was started on BPAP 8/4 cm H2O and titrated to BPAP 18/12 cm H2O due to hypopneas. The patient was able to fall asleep starting on BPAP 8/4 cm H2O. The patient was able to achieve REM sleep starting on BPAP 15/8 cm H2O. The patient's sleep apnea resolved with both NREM and REM sleep in the supine position with a high sleep efficiency towards the end of the study. On BPAP 18/11 cm H2O, the patient spent 103 minutes in NREM and 18.5 minutes in REM with 2 obstructive apneas, 2 mixed apneas and 1 hypopnea, resulting in an AHI of 2.5. The patient had a sleep efficiency of 98.4% on this pressure setting. Arousals There were 144 total arousals for an arousal index of 21.3. There were 42 spontaneous arousals for an index of 6.2. ?There were 78 arousals due to respiratory events for an index of 11.5. There were 4 arousals due to periodic limb movements for an index of 0.6.? There were 17 arousals due to isolated limb movements for an index of 2.5. Periodic Limb Movements The patient had 30 isolated limb movements with an index of 4.4. The patient had 5 periodic limb movements with index of 0.7. Patient had a total of 35 limb movements with a total limb movement index of 5.2. Oximetry Data The patient had an average oxygen saturation of 93.8% in sleep with a minimum oxygen saturation of 79.0% and a maximum oxygen saturation of 98.0%. The patient had 110 oxygen desaturations that were 4% or greater resulting in an Oxygen Desaturation Index of 16.3.? The patient spent 9.8 minutes, 2.2% of total sleep time with an oxygen saturation below 88%. Snoring Profile Loud snoring was present until the patient was titrated to 18/11 cm H2O. Cardiac Profile The EKG showed normal sinus rhythm. No arrhythmias or premature beats were seen. The patient had an average pulse rate of 82.5 bpm with a minimum pulse rate of 68.0 bpm and a maximum pulse rate of 93.0 bpm. ? EEG Profile No signs of seizure activity seen. Assessment and Plan Assessment and Plan (1) HAY (obstructive sleep apnea): Code(s): G47.33 - Obstructive sleep apnea (adult) (pediatric) Status: Acute Assessment and Plan: The patient was started on BPAP 8/4 cm H2O and titrated to BPAP 18/12 cm H2O due to hypopneas. I recommend that the patient be prescribed BPAP 18/11 cm H2O, size medium ResMed AirFit P30i mask, BPAP filters/tubing and heated humidity. This should be used with all episodes of sleep.? Compliance should be reviewed within 31-90 days of starting therapy for usage greater than 4 hours per night greater than 70% of the nights. The patient should be asked about symptoms such as?excessive daytime sleepiness, quality of sleep, decreased nocturia, increased?mental functioning such as memory, mood, and concentration. Data The data obtained during this sleep study is adequate for interpretation. Certification This sleep study has been reviewed by a board certified sleep medicine physician.
[2024-04-08 20:49] VITALS: BMI 44.0
== END 2024-03-19 06:03 | disposition home or self-care (01) ==
LOC: CHSCSM 19:55
PROVIDERS: PCP Internal Medicine; Visit Provider Physician Assistant
DX: G47.33 Obstructive sleep apnea (adult) (pediatric) (principal)
CPT/HCPCS: 95811

== ENCOUNTER 2024-05-18 15:29 | Outpatient (CLI) | payer OTHER, SELFPAY | END 2024-05-18 15:30 | disposition home or self-care (01) | LOC: MICIMG 15:31 | PROVIDERS: PCP Internal Medicine; Visit Provider Internal Medicine | DX: M43.04 Spondylolysis, thoracic region (principal) | CPT/HCPCS: 72146 ==

== ENCOUNTER 2024-05-18 15:33 | Outpatient (CLI) | payer OTHER, SELFPAY | END 2024-05-18 15:34 | disposition home or self-care (01) | PROVIDERS: PCP Internal Medicine | DX: M67.813 Other specified disorders of tendon, right shoulder (principal); M19.011 Primary osteoarthritis, right shoulder; G89.29 Other chronic pain | CPT/HCPCS: 73221 ==

== ENCOUNTER 2024-07-20 16:09 | Outpatient (RCR) | payer OTHER, SELFPAY ==
--- NOTE | 2024-07-20 17:17 | OPREHPOC ---
Outpatient Therapy Plan of Care This is a Multidisciplinary Plan of Care that may contain components documented by all disciplines (PT, OT, and ST.) PT Problem 1 PT Problem #1 Knowledge Deficit PT Goal 1 Goal / Goal Update The patient will be independent in a home exercise program. Target Visit 4 PT Problem 2 PT Problem #2 Pain PT Goal 1 Goal / Goal Update The patient will report no greater than 3/10 right shoulder pain with repetitive activities. Target Visit 10 PT Problem 3 PT Problem #3 Impaired Strength PT Goal 1 Goal / Goal Update The patient will demonstrate 4+/5 or greater right shoulder strength to return to PLOF. Target Visit 10 PT Problem 4 PT Problem #4 Impaired Functional Mobility PT Goal 1 Goal / Goal Update The patient will demonstrate 10% or less self perceived disability per the Quick DASH questionnaire. The patient will be able to lift 20# from shoulder to overhead for 10 reps without pain to improve ability to perform job tasks. Target Visit 10
--- NOTE | 2024-07-20 17:18 | PTOPEVAL1 ---
Assessment and note entered by Mehnaz Oliver, PT Evaluation Information Assessment Status Evaluation Diagnosis s/p R shoulder arthroscopy ICD-10 Condition Codes (PT) Pain in right shoulder M25.511,Encounter for other orthopedic aftercare Z47.89 Onset 07/11/24 Subjective Information Marty Griffin reports he had right shoulder surgery in June 2022 and it did well for about 9 months. His original surgery was to clean up the shoulder and for a biceps tenodesis. He did not have a rotator cuff repair. He started having pain again in early 2023. He notes pain in the front of the shoulder when lifting items a lot. He also notes cramping in his bicep. He had a MRI in April 2024 and it did not show any new damage. He had a cortisone injection last week which has helped the pain. He was also referred to PT. Reported Pain Level Pain Score 2: Self Report Assessment PT Clinical Summary Warren Griffin presents with chronic right shoulder pain. He has a history of a right shoulder arthroscopy and biceps tenodesis in June 2022. He notes pain with repetitive lifting with the right arm and cramping in his biceps with elbow flexion activities. He demonstrates decreased right shoulder strength, impaired posture, painful right shoulder abduction and external rotation AROM, tenderness in the right bicep muscle, and positive special tests consistent with rotator cuff pathology. He will benefit from skilled PT to address these limitations. Plan of Care Interventions Electrical Stimulation,Hot Pack/Cold Pack,Manual Therapy,Neuro Re-education,Patient/Caregiver Education,Therapeutic Activities,Therapeutic Exercise PT Services Indicated Yes Treatment Frequency and 2 times a week for 10 visits Duration These treatments will address the objective and functional deficits as defined above. The patient will be advanced safely and appropriately in order for the patient to progress towards his/her prior level of function. Additional exercises will be introduced and as well as a comprehensive home exercise program upon discharge, if needed, ?to ensure carryover of functional gains achieved in the clinic. This treatment plan has been reviewed and agreement upon by the patient.
--- NOTE | 2024-09-20 16:49 | OPREHPOC ---
Outpatient Therapy Plan of Care This is a Multidisciplinary Plan of Care that may contain components documented by all disciplines (PT, OT, and ST.) PT Problem 1 PT Problem #1 Knowledge Deficit PT Goal 1 Goal / Goal Update The patient will be independent in a home exercise program. Target Visit 4 Progress Met PT Problem 2 PT Problem #2 Pain PT Goal 1 Goal / Goal Update The patient will report no greater than 3/10 right shoulder pain with repetitive activities. Target Visit 10 Progress Met PT Problem 3 PT Problem #3 Impaired Strength PT Goal 1 Goal / Goal Update The patient will demonstrate 4+/5 or greater right shoulder strength to return to PLOF. Target Visit 10 Progress Met PT Problem 4 PT Problem #4 Impaired Functional Mobility PT Goal 1 Goal / Goal Update The patient will demonstrate 10% or less self perceived disability per the Quick DASH questionnaire. -nearly met (13.6%) The patient will be able to lift 20# from shoulder to overhead for 10 reps without pain to improve ability to perform job tasks. -met Target Visit 10 Progress Partially Met
--- NOTE | 2024-09-20 16:49 | PTOPDC ---
Assessment and note entered by Mehnaz Oliver, PT Evaluation Information Assessment Status Discharge Diagnosis s/p R shoulder arthroscopy ICD-10 Condition Codes (PT) Pain in right shoulder M25.511,Encounter for other orthopedic aftercare Z47.89 Onset 07/11/24 Subjective Information Marty Griffin reports his right shoulder is better overall. He does still have cramping occasionally in the bicep when holding items for a long period. He has also noted popping when he moves his shoulder in a full la posta. He has been working full duty and notes less pain and cramping overall . He does not have a follow up with the doctor at this time. Reported Pain Level Pain Score 1: Self Report Assessment PT Clinical Summary Warren Griffin has completed 10 skilled PT visits for chronic right shoulder pain. He has a history of a right shoulder arthroscopy and biceps tenodesis in June 2022. He reports his shoulder is doing better overall and he has just occasional cramping in the bicep and popping noted in the shoulder with rotation. He has been working full duty without difficulty. He demonstrates improved right shoulder AROM, improved right shoulder strength, less positive special tests, and less tenderness. He was able to lift 20# overhead for 10 repetitions today without pain. He has met 90% of his goals and will be discharged to an independent [facility]. Plan of Care PT Services Indicated No
== END 2024-09-20 17:21 | disposition home or self-care (01) ==
LOC: CHSPT 16:09
PROVIDERS: PCP Internal Medicine
DX: M25.511 Pain in right shoulder (principal); M75.81 Other shoulder lesions, right shoulder; G89.29 Other chronic pain; Z98.890 Other specified postprocedural states
CPT/HCPCS: 97014; 97110; 97112; 97140; 97161; 97750; G0283

== ENCOUNTER 2024-08-10 06:57 | Outpatient (CLI) | payer OTHER, SELFPAY ==
--- NOTE | ~2024-08-10 | US_ITS ---
Limited Abdominal Sonogram: Real-time sonographic imaging of the right upper quadrant was performed. Clinical History: Fatty liver Findings: The liver appears echogenic, with no evidence of mass lesion or bile duct dilatation. Main portal vein demonstrates normal direction of flow. The gallbladder is absent, compatible with prior cholecystectomy. The common bile duct measures 5 mm. The visualized pancreas, aorta, and IVC are unr emarkable. Impression: Diffuse fatty infiltration of the liver. Reviewed, dictated and finalized at location . Impression: Diffuse fatty infiltration of the liver.
--- OUTSIDE RECORDS SUMMARY | 2024-08-10 07:01 | XMS_ITS | Clinical Summary ---
Author Organization [facility] Address [address] [place] [address] Care Team Providers Care Patching Machine Operator Name Role Phone Ted Guo MD Primary Care Provider [phone] Rachel Ziegler RN Unavailable Unavailable Cassi Bose PRESCHOOL HEAD TEACHER-FIELD OPERATOR Unavailable [phone] Source Comments [facility],non-owned Affiliates and Associated Physician Practices is amultiple site organization consisting of ambulatory clinics and hospital sitesin [place], [place], [place]. This disclosure is being madepursuant to the Care Everywhere program and may not contain all information available regarding this patient. Last updated 17.[facility] Allergies Active Allergy Reactions Criticality Noted Date Comments Cefaclor Urticaria Medium 01/09/2020 Penicillins Urticaria Medium 01/09/2020 Medications * Be aware that medications may not be up to date on this document. Alwaysverify current medications with the patient. lisinopril-hyd roCHLOROthiazi de (PRINZIDE; ZESTORETIC) 20-12.5 MG tablet Take 1 (one) tablet by mouth once daily 0 Active verapamil SR 24hr (VERELAN) 240 MG capsule Take 1 (one) capsule by mouth once daily 0 Active montelukast (SINGULAIR) 10 MG tablet Take 1 (one) tablet by mouth once daily 0 Active ketoconazole (Nizoral) 2 % cream Apply to affected area once daily to affected area 3 Active nortriptyline (Pamelor) 25 MG capsule Take 1 (one) capsule by mouth at bedtime 4 Active Mounjaro 12.5 MG/0.5ML injection Inject 12.5 (twelve and one-half) mg subcutaneously every 7 days 4 Active lactulose (Chronulac) 10 GM/15ML solution Take 15 mL by mouth as needed for Constipation 4 Active carvedilol (Coreg) 3.125 MG tablet Take 1 (one) tablet by mouth 2 times daily with morning and evening meal 180 tablet 3 4 025 Active diazePAM (Valium) 10 MG tablet Take one tablet one hour before procedure. If needed take one additional tablet at time of procedure. 2 tablet 5 Active Hospital, Clinic, or Other Facility Administered Medication Ordered Dose Route Frequency Start Date End Date Status triamcinolone acetonide (Kenalog-40) injection 40 mgIndications:Chronic right shoulder pain,S/P arthroscopy of right shoulder 40 mg IX ONCE 07/11/2024 07/11/2024 Ended lidocaine PF (Xylocaine MPF) 1 % injection 3 mLIndications:Chronic right shoulder pain,S/P arthroscopy of right shoulder 3 mL IX ONCE 07/11/2024 07/11/2024 Ended Active Problems Problem Noted Date Diagnosed Date Morbid obesity 02/08/2023 Metabolic syndrome 02/08/2023 Adenomatous colon polyp 08/05/2021 Hematochezia 08/05/2021 Portal hypertension 08/05/2021 TAN (nonalcoholic steatohepatitis) 07/01/2020 Cirrhosis of liver without ascites 07/01/2020 Gastroesophageal reflux disease 09/02/2016 Hypertension 09/02/2016 Obstructive sleep apnea syndrome in adult 2016 Encounters Date Type Department Care Team Description 07/11/2024 3:30 PM CDT Office Visit [facility] [address] [place] [address], [address] [place] [address] Maday Ignacio PA-C Nontraumatic tear of right rotator cuff, unspecified tear extent (Primary Dx); Chronic right shoulder pain; S/P arthroscopy of right shoulder; Tendinitis of right rotator cuff 07/10/2024 Telephone [facility] [address] [place] [address], [address] [place] [address] Malathi Moreno MD Question 06/09/2024 Orders Only [facility] [address] [facility], [facility] [address] [place] [address] Maday Ignacio PA-C Chronic right shoulder pain; Nontraumatic tear of right rotator cuff, unspecified tear extent 06/06/2024 Telephone [facility] [address] [facility], [facility] [address] [place] [address] Maday Ignacio PA-C Results 05/16/2024 Refill [facility] [address] [place] [address], [facility] [address] [place] [address] Malathi Moreno MD MEDICATION REFILL from Last 3 Months Social History Tobacco Use Types Packs/Day Years Used Date Smoking Tobacco: Never Smokeless Tobacco: Never Tobacco Cessation:Counseling Given: Not Answered Alcohol Use Standard Drinks/Week Comments Yes 0 (1 standard drink = 0.6 oz pur e alcohol) rarely AUDIT-C Answer Date Recorded Q1: How often do you have a drink containing alc ohol? Never 11/18/2021 Average Number of Drinks Not on file 022 Frequency of Binge Drinking Not on file 10/22 PHQ-2 Answer Date Recorded Patient Health Questionnaire-2 Score 0 04/24/2024 Sex and Gender Information Value Date Recorded Sex Assigned at Not on file Legal Sex Male 5:11 AM CANDY SEPARATOR ENROBING Gender Identity Not on file Sexual Orientation Not on file Last Filed Vital Signs Vital Sign Reading Time Taken Comments Blood Pressure 134/86 02/24/2024 3:20 PM CANDY SEPARATOR ENROBING Pulse 91 02/24/2024 3:20 PM CANDY SEPARATOR ENROBING Temperature 36.6 C (97.9 F) 02/24/2024 3:20 PM CANDY SEPARATOR ENROBING Respiratory Rate 22 11/11/2023 10:00 AM CDT Oxygen Saturation 98% 02/24/2024 3:20 PM CANDY SEPARATOR ENROBING Inhaled Oxygen Concentration - - Weight 155.1 kg (342 lb) 04/24/2024 10:12 AM CANDY SEPARATOR ENROBING Height 182.9 cm (6') 04/24/2024 10:12 AM CANDY SEPARATOR ENROBING Body Mass Index 46.38 04/24/2024 10:12 AM CANDY SEPARATOR ENROBING Plan of Treatment Upcoming Encounters Date Type Department Care Team (Late st Contact Info) Description 08/24/2024 3:30 PM CDT Office Visit [facility] - [facility] [address] [facility], [place] [address] Cassi Bose, PRESCHOOL HEAD TEACHER-FIELD OPERATOR [address] [facility] [address] [place] [address] Health Maintenance Due Date Last Done Comments HIV SCREENING 08/10/1998 DTAP/TDAP/TD VACCINES (1 - Tdap) 08/10/2002 HEPATITIS B VACCINE (1 of 3 - 19+ 3-dose series) 08/10/2002 PNEUMOCOCCAL VACCINE (1 of 2 - PCV) 08/10/2002 LIPID TESTING 01/25/2023 01/25/2018 COVID-19 VACCINE ( - season) 2023 INFLUENZA VACCINE (Season Ended) 2024 SCREENING FOR DIABETES 11/10/2026 , 04/23/2023, 07/16/2022, Additional history exists ZOSTER VACCINE (1 of 2) 08/10/2033 HEPATITIS C SCREENING Completed 02/23/2020 DEPRESSION SCREENING Completed 04/24/2024 HIB VACCINE Aged Out No longer eligi ble based on patient's age to complete this topic HPV VACCINE Aged Out No longer eligi ble based on patient's age to complete this topic MENINGOCOCCAL (Group B) VACCINE SHARED DECISION-MAKING Aged Out No longer eligible based on patient's age to complete this topic MENINGOCOCCAL GROUPS A/C/Y/W VACCINE Aged Out No longer eligible based on patient's age to complete this topic Goals Goal Patient Goal Type Associated Problems Recent Progress Patient-Stated? Author Medication Management General On track( 024 3:14 PM CANDY SEPARATOR ENROBING) No Rosa Maria Pearl, RN Note: Expected end date: Ongoing Interventions: Take all medications as prescribed Let your doctor know right away about any changes in your medications Make sure to request a refill of your medication at least one week prior to your last dose Medical Devices Implanted Type Area Autocad Designer Device Identifier Shelf Expiration Date Model / Serial / Lot Sys Impl 1.9mm Fibertak Biceps Jackson Implanted:Qty: 1 on 07/16/2022 by Malathi Moreno MD at [facility] Right: Shoulder [employer] 04/21/2027 [id number] / / [id number] Procedures Procedure Name Priority Date/Time Associated Diagnosis Comments GLUCOSE - POINT OF CARE Routine 11/11/2023 8:08 AM CDT HEPATITIS SCREEN ACUTE (EXTERNAL RESULTS) Routine 02/23/2020 from Last 3 Months or Most Recently Relevant to Health Maintenance Results * (ABNORMAL) GLUCOSE - POINT OF CARE (11/11/2023 8:08 AM CDT) [facility] Glucose WB/POC 116(H) 70 - 115 mg/dL 11/11/2023 8:09 AM CDT [facility] Specimen Type Venous 11/11/2023 8:09 AM CDT [facility] Blood BLOOD SPECIMEN / Unknown 11/11/2023 8:08 AM CDT 11/11/2023 8:09 AM CDT Go Chavez MD LAB - POINT OF CARE ORDERABLES Final Result [facility] [address] [place] [address], [facility] [phone] * HEPATITIS SCREEN ACUTE (EXTERNAL RESULTS) (02/23/2020) [facility] Hepatitis A Virus Antibody IgM (EXTERNAL RESULT) Hepatitis B Core Virus Antibody IgM (EXTERNAL RESULT) Hepatitis B Virus Surface Antigen (EXTERNAL RESULT) Non-Reacti ve Hepatitis C Antibody Screen (EXTERNAL RESULT) Non-Reacti ve Hepatitis C Virus Index (EXTERNAL) Blood 02/23/2020 us Philippe Provider LAB - CHEMISTRY ORDERABLE S Final Result from Last 3 Months or Most Recently Relevant to Health Maintenance Insurance AETNA AETNA Care Teams Patching Machine Operator Relationship Specialty Start Date End Date Ted Guo MD [address] [place] [address] PCP - General 01/07/20 Rachel Ziegler, RN Registered Nurse Hepatology 04/25/24 Cassi Bose, PRESCHOOL HEAD TEACHER-FIELD OPERATOR [address] [facility] [place] [address] Nurse Practitioner Hepatology 05/03/24
--- OUTSIDE RECORDS SUMMARY | 2024-08-10 07:01 | XMS_ITS | Encounter Summary ---
Author Organization [facility] Address [facility] [facility] [place] [address] Care Team Providers Care Director Asset Name Role Phone Ted Guo MD Primary Care Provider [phone] Rachel Ziegler RN Unavailable Unavailable Cassi Bose MALT HOUSE OPERATOR-PARCEL POST CARRIER Unavailable [phone] Encounter Details Date Type Department Care Team (Late Contact Info) Description 03/05/2020 Postop Outreach [facility] [address] [place] [address] Saranya Blackman RN Social History Tobacco Use Types Packs/Day Years Used Date Smoking Tobacco: Never Smokeless Tobacco: Never Sex and Gender Information Value Date Recorded Sex Assigned at Not on file Legal Sex Male 5:11 AM RIVER EXPEDITION GUIDE Gender Identity Not on file Sexual Orientation Not on file documented as of this encounter Plan of Treatment Upcoming Encounters Date Type Department Care Team (Late Contact Info) Description 08/24/2024 3:30 PM CDT Office Visit [facility] - GI [address] [facility], [place] [address] Cassi Bose, MALT HOUSE OPERATOR-PARCEL POST CARRIER [address] [place] [address] [facility] [place] [address] documented as of this encounter Goals Goal Patient Goal Type Associated Problems Recent Progress Patient-Stated? Author Medication Management General On track( 024 3:14 PM RIVER EXPEDITION GUIDE) No Rosa Maria Pearl RN Note: Expected end date: Ongoing Interventions: Take all medications as prescribed Let your doctor know right away about any changes in your medications Make sure to request a refill of your medication at least one week prior to your last dose documented as of this encounter Visit Diagnoses Not on filedocumented in this encounter Care Teams Director Asset Relationship Specialty Start Date End Date Ted Guo MD [address] [place], [place] [id number] PCP - General 01/07/20 Rachel Ziegler, RN Registered Nurse Hepatology 04/25/24 Cassi Bose, MALT HOUSE OPERATOR-PARCEL POST CARRIER [address] OF [place] [address] Nurse Practitioner Hepatology 05/03/24 documented as of this encounter
--- OUTSIDE RECORDS SUMMARY | 2024-08-10 07:01 | XMS_ITS | Encounter Summary ---
Author Organization [facility] Address [facility] [facility] [place] [address] Care Team Providers Care It Architect Name Role Phone Ted Guo MD Primary Care Provider Rachel Ziegler RN Unavailable Unavailable Cassi Bose HAT CONDITIONER-CABLE TELEVISION ACCESS COORDINATOR Unavailable [phone] Encounter Details Date Type Department Care Team (Late Contact Info) Description 01/12/2020 Telephone [facility] [id number] [place] [id number] Claudia Hernandez, THREAD PULLING MACHINE ATTENDANT Social History Tobacco Use Types Packs/Day Years Used Date Smoking Tobacco: Never Smokeless Tobacco: Never Sex and Gender Information Value Date Recorded Sex Assigned at Not on file Legal Sex Male 5:11 AM CUSTOMER RESOLUTION SPECIALIST Gender Identity Not on file Sexual Orientation Not on file documented as of this encounter Plan of Treatment Upcoming Encounters Date Type Department Care Team (Late Contact Info) Description 08/24/2024 3:30 PM CDT Office Visit [facility] - [facility] [place] [phone] Cassi Bose, HAT CONDITIONER-CABLE TELEVISION ACCESS COORDINATOR [address] [place] [address] [facility] [place], [place] [id number] documented as of this encounter Goals Goal Patient Goal Type Associated Problems Recent Progress Patient-Stated? Author Medication Management General On track( 024 3:14 PM CUSTOMER RESOLUTION SPECIALIST) No Rosa Maria Pearl, RN Note: Expected end date: Ongoing Interventions: Take all medications as prescribed Let your doctor know right away about any changes in your medications Make sure to request a refill of your medication at least one week prior to your last dose documented as of this encounter Procedures Procedure Name Priority Date/Time Associated Diagnosis Comments AFP (EXTERNAL RESULT ENTRY) Routine 02/23/2020 documented in this encounter Results * (ABNORMAL) AFP (EXTERNAL RESULT ENTRY) (02/23/2020) Alpha-Fetoprot ein (EXTERNAL RESULT) 10.8(A) 0.0 - 6.1 ng/mL Blood BLOOD SPECIMEN / Unknown 02/23/2020 us Historical Provider LAB - CHEMISTRY ORDERABLE S Final Result documented in this encounter Visit Diagnoses Not on filedocumented in this encounter Care Teams It Architect Relationship Specialty Start Date End Date Ted Guo MD [address] [place] [address] PCP - General 01/07/20 Rachel Ziegler, RN Registered Nurse Hepatology 04/25/24 Cassi Bose, HAT CONDITIONER-CABLE TELEVISION ACCESS COORDINATOR [address] [place] [address] Nurse Practitioner Hepatology 05/03/24 documented as of this encounter
--- OUTSIDE RECORDS SUMMARY | 2024-08-10 07:02 | XMS_ITS | Encounter Summary ---
Author Organization [facility] Address [address] [facility] [address] [place] [address] Care Team Providers Care High School Music Instructor Name Role Phone Ted Guo MD Primary Care Provider [phone] Airam Mathews MD Primary Care Provider [phone] Ted Guo MD Unavailable [phone] Ted Guo MD Primary Care Provider [phone] Unknown, Notinfile Primary Care Provider Unavail able Unknown, Notinfile Primary Care Provider Unavail able Ted Guo MD Primary Care Provider [phone] Encounter Details Date Type Department Care Team (Late st Contact Info) Description 03/01/2014 Orders Only [facility] ProviderPhilippe MD [address] [place] [address] Social History Tobacco Use Types Packs/Day Years Used Date Smoking Tobacco: Never Assessed Sex and Gender Information Value Date Recorded Sex Assigned at Not on file Legal Sex Male 1:12 AM NURSE TECH Gender Identity Not on file Sexual Orientation Not on file documented as of this encounter Plan of Treatment Not on file documented as of this encounter Procedures Procedure Name Priority Date/Time Associated Diagnosis Comments CARDIOLOGY REPORT 03/01/2014 documented in this encounter Results * CARDIOLOGY REPORT (03/01/2014) Anatomical Region Laterality Modality Other Narrative 03/01/2014 Ordered by an unspecified provider. Historical Provider [facility] LEENA CHUNG Final Result documented in this encounter Visit Diagnoses Not on filedocumented in this encounter Care Teams High School Music Instructor Relationship Specialty Start Date End Date Ted Guo MD PCP - General 06/23/16 07/12/16 Airam Mathews MD [address] [place] [address] PCP - General 07/13/16 09/01/16 Ted Guo MD PCP - General 09/02/16 11/23/16 Unknown, Notinfile PCP - General 11/24/16 12/15/16 Unknown, Notinfile PCP - General 12/16/16 01/03/17 Ted Guo MD PCP - General 01/04/17 Ted Guo MD 07/13/16 documented as of this encounter
--- OUTSIDE RECORDS SUMMARY | 2024-08-10 07:02 | XMS_ITS | Clinical Summary ---
Author Organization [facility] [address] Address [address] [place] [address] Care Team Providers Care Material Man Name Role Phone Ted Guo MD Unavailable [phone] Ted Guo MD Primary Care Provider [phone] Allergies Active Allergy Reactions Criticality Noted Date Comments Cefaclor Hives Medium Penicillins Hives Medium Medications fluticasone (FLONASE ALLERGY RELIEF) 50 mcg/actuation nasal spray spray 1 - 2 spray by intranasal route every day in each nostril as needed 0 spray 0 7 Active omeprazole (PriLOSEC) 20 mg capsule take 1 capsule by oral route every day before a meal 0 0 7 Active verapamil ER (VERELAN) 240 mg 24 hr capsule take 1 capsule by oral route 2 times every day 0 0 7 Active nortriptyline (PAMELOR) 25 mg capsule take 1 capsule by oral route every day 0 0 7 Active lisinopril-hydr oCHLOROthiazide (PRINZIDE,ZESTO RETIC) 20-12.5 mg per tablet take 1 Tablet by oral route every day 0 0 7 Active vitamin E 400 unit capsule take 1 by Oral route every day 0 0 7 Active montelukast (SINGULAIR) 10 mg tablet take 1 tablet by oral route every day in the evening 0 0 7 Active cholecalciferol , vitamin D3, 1,000 unit/drop drops Take 2 drops by mouth daily. Active gabapentin (NEURONTIN) 600 mg tablet Take 600 mg by mouth daily. Active azithromycin (ZITHROMAX) 250 mg tablet TAKE 1-2 TABLETS BY MOUTH DAILY FOR 30 DAYS 2 8 Active HYDROcodone-jin taminophen (NORCO) 5-325 mg per tabletIndicatio ns:Pain TAKE 1 TO 2 TABLETS BY MOUTH EVERY 6 HOURS NEEDED 0 8 Active meloxicam (MOBIC) 15 mg tablet Take 15 mg by mouth daily. 0 8 Active Active Problems Problem Noted Date Diagnosed Date Neck pain 03/31/2018 Other chest pain 06/22/2017 Gastroesophageal reflux disease 09/02/2016 Hypertension 09/02/2016 Obstructive sleep apnea syndrome in adult 2016 Nonalcoholic fatty liver disease 09/02/2016 Degeneration of intervertebral disc of cervical region 09/02/2016 Seasonal allergic rhinitis 09/02/2016 Head revolving around 09/02/2016 Tension headache 09/02/2016 Surgical History Surgery Date Site/Laterality Comments CHOLECYSTECTOMY Cholecystectomy CARPAL TUNNEL RELEASE Medical History Medical History Date Comments Hyperlipidemia Hyperlipidemia Hx Other Medical Hx of sleep collar baster ea Hx Other Medical Hypospadias vanessa rajesh Hx Other Medical Rectal polyps Hypertension Hypertension Hx Other Medical Bulging disk ce rvical spine Social History Tobacco Use Types Packs/Day Years Used Date Smoking Tobacco: Never Smokeless Tobacco: Never Alcohol Use Standard Drinks/Week Comments No 0 (1 standard drink = 0.6 oz pur e alcohol) Personal Safety Answer Date Recorded Getting School Help Needed Not on file 06/04 Sex and Gender Information Value Date Recorded Sex Assigned at Not on file Legal Sex Male 1:12 AM SUPERVISOR SINTERING PLANT Gender Identity Not on file Sexual Orientation Not on file Obstetrics History Last Filed Vital Signs Vital Sign Reading Time Taken Comments Blood Pressure 137/82 03/31/2018 11:47 AM SUPERVISOR SINTERING PLANT Pulse 96 03/31/2018 11:47 AM SUPERVISOR SINTERING PLANT Temperature - - Respiratory Rate - - Oxygen Saturation 96% 01/25/2018 12:57 PM SUPERVISOR SINTERING PLANT Inhaled Oxygen Concentration - - Weight 156 kg (344 lb) 03/31/2018 11:47 AM SUPERVISOR SINTERING PLANT Height 182.9 cm (6') 03/31/2018 11:47 AM SUPERVISOR SINTERING PLANT Body Mass Index 46.65 03/31/2018 11:47 AM SUPERVISOR SINTERING PLANT Plan of Treatment Not on file Insurance AETNA [facility] PPO AETNA AETNA [place] HMO/POS Care Teams Material Man Relationship Specialty Start Date End Date Ted Guo MD [facility] - General 01/04/17 Ted Guo MD 07/13/16
--- OUTSIDE RECORDS SUMMARY | 2024-08-10 07:02 | XMS_ITS | Patient Health Record ---
Author Organization [facility] Address [address] [place] [address] KENDRICK Avina [address] Care Team Providers Care Slurry Control Operator Helper Name Role Phone MATT ZAMORA, JINA Primary Care Provider Unavaila Johan Bosch Unavailable [phone] ANNA CALZADA MD Unavailable Unavailable ALLERGIES Allergen (clinical drug ingredient) Drug/Non Drug Allergy documented on EMR Reaction Allergy Type Onset Date Status Medicinal cephalosporin and acting as antibacterial agent (FN) Cephalosporins hives Drug Allergy Active Penicillin hives Drug Allergy Active REASON FOR REFERRAL No Information MEDICATIONS Medication SIG (Take, Route, Frequency, Duration) Notes Start Date End Date Status metFORMIN HCl ER 500 MG 1 tablet with ev ening meal Orally Once a day for 30 day(s) Active Montelukast Sodium 10 MG 1 tablet Orally Once a day for 30 day(s) Active Nortriptyline HCl 25 MG 1 capsule Orally Once a day for 30 day(s) Active Ozempic (0.25 or 0.5 MG/DOSE) 2 MG/3ML as directed Subcutaneous Active Tamsulosin HCl 0.4 MG 1 capsule Orally O nce a day for 30 day(s) Active Xanax 0.25 MG 1-2 tablets Orally 3 0 minutes prior to injection 10/16/2022 Active Verapamil HCl ER 240 MG 1 capsule Orally Once a day for 30 day(s) Active Xanax 0.25 MG 1-2 tablets Orally 3 0 minutes prior to injection 09/17/2022 Active Lisinopril-hydroCHLOROthiaz miri 20-12.5 MG 1 tablet Orally Once a day for 30 day(s) Active SOCIAL HISTORY Sex Assigned At : Social History Observation Description Sex Assigned At Unknown PROBLEMS Problem Type ICD Code Onset Dates Problem Status W/U Status Risk SNOMED Code Notes Problem Fear of injections and transfusions (F40.231) Active confirmed Fear of medical treatment (363170576) Problem Spondylosis without myelopathy or radiculopathy, 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 Cervical spondylosis without myelopathy (843381564) Problem Spondylosis without myelopathy or radiculopathy, 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 Cervical spondylosis without myelopathy (352286336) Problem Radiculopathy, cervical region (M54.12) Active confirmed Cervical radiculopathy (34605573) Problem 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) Active confirmed Spinal stenosis in cervical region (11251869) Problem Myalgia of auxiliary muscles, head and neck (M79.12) Active confirmed PLAN OF TREATMENT No Information Insurance Providers Payer Name Payer Address Payer Phone Subscriber Number Group Number Insured Name Patient Relationship to Insured Coverage Start Date Coverage End Date [employer] [address] [address] [facility] [place] [address] [phone] [id number] KAREN YIP Self - patient is the insured MEDICAL (GENERAL) HISTORY Medical History History ICD Code Hypertension Diabetes Surgical History Surgery Date(Month/Year) Bilateral carpal tunnel release Cholecystectomy Right shoulder rotator cuff repair 3
--- OUTSIDE RECORDS SUMMARY | 2024-08-10 07:02 | XMS_ITS | Encounter Summary ---
Author Organization [facility] Address [address] [place] [address] Care Team Providers Care Data Consultant Name Role Phone Ted Guo MD Primary Care Provider [phone] Airam Mathews MD Primary Care Provider [phone] Ted Guo MD Unavailable [phone] Ted Guo MD Primary Care Provider [phone] Unknown, Notinfile Primary Care Provider Unavail able Unknown, Notinfile Primary Care Provider Unavail able Ted Guo MD Primary Care Provider [phone] Encounter Details Date Type Department Care Team (Late st Contact Info) Description 10/24/2013 Orders Only [facility] ProviderPhilippe MD [address] [place] [address] Social History Tobacco Use Types Packs/Day Years Used Date Smoking Tobacco: Never Assessed Sex and Gender Information Value Date Recorded Sex Assigned at Not on file Legal Sex Male 1:12 AM PHOTORESIST CONTACT PRINTER Gender Identity Not on file Sexual Orientation Not on file documented as of this encounter Plan of Treatment Not on file documented as of this encounter Procedures Procedure Name Priority Date/Time Associated Diagnosis Comments CARDIOLOGY REPORT 10/24/2013 documented in this encounter Results * CARDIOLOGY REPORT (10/24/2013) Anatomical Region Laterality Modality Other Narrative 10/24/2013 Ordered by an unspecified provider. Historical Provider [facility] LEENA CHUNG Final Result documented in this encounter Visit Diagnoses Not on filedocumented in this encounter Care Teams Data Consultant Relationship Specialty Start Date End Date Ted Guo MD PCP - General 06/23/16 07/12/16 Airam Mathews MD [address] [place] [address] PCP - General 07/13/16 09/01/16 Ted Guo MD PCP - General 09/02/16 11/23/16 Unknown, Notinfile PCP - General 11/24/16 12/15/16 Unknown, Notinfile PCP - General 12/16/16 01/03/17 Ted Guo MD PCP - General 01/04/17 Ted Guo MD 07/13/16 documented as of this encounter
--- OUTSIDE RECORDS SUMMARY | 2024-08-10 07:02 | XMS_ITS | Referral Summary ---
Author Organization [facility] [address] Address [address] [place] [address] Care Team Providers Care Mechanical Development Engineer Name Role Phone Ted Guo MD Unavailable [phone] Ted Guo MD Primary Care Provider [phone] Allergies Active Allergy Reactions Criticality Noted Date [...] Head revolving around 09/02/2016 Tension headache 09/02/2016 Social History Tobacco Use Types Packs/Day Years Used Date Smoking Tobacco: Never Smokeless Tobacco: Never Alcohol Use Standard Drinks/Week Comments No 0 (1 standard drink = 0.6 oz pur e alcohol) Personal Safety Answer Date Recorded Getting School Help Needed Not on file 06/04 Sex and Gender Information Value Date Recorded Sex Assigned at Not on file Legal Sex Male 1:12 AM CATALOG LIBRARIAN Gender Identity Not on file Sexual Orientation Not on file Last Filed Vital Signs Vital Sign Reading Time Taken Comments Blood Pressure 137/82 03/31/2018 11:47 AM CATALOG LIBRARIAN Pulse 96 03/31/2018 11:47 AM CATALOG LIBRARIAN Temperature - - Respiratory Rate - - Oxygen Saturation 96% 01/25/2018 12:57 PM CATALOG LIBRARIAN Inhaled Oxygen Concentration - - Weight 156 kg (344 lb) 03/31/2018 11:47 AM CATALOG LIBRARIAN Height 182.9 cm (6') 03/31/2018 11:47 AM CATALOG LIBRARIAN Body Mass Index 46.65 03/31/2018 11:47 AM CATALOG LIBRARIAN Plan of Treatment Not on file Insurance AETNA [facility] PPO AETNA AETNA COV[employer] HMO/POS Care Teams Mechanical Development Engineer Relationship Specialty Start Date End Date Ted Guo MD PCP - General 01/04/17 Ted Guo MD [phone] (work) 07/13/16
--- OUTSIDE RECORDS SUMMARY | 2024-08-10 07:02 | XMS_ITS | Encounter Summary ---
Author Organization [facility] Address [address] [place] [address] Care Team Providers Care Shank Cutter Name Role Phone Ted Guo MD Primary Care Provider [phone] Airam Mathews MD Primary Care Provider [phone] Ted Guo MD Unavailable [phone] Ted Guo MD Primary Care Provider [phone] Unknown, Notinfile Primary Care Provider Unavail able Unknown, Notinfile Primary Care Provider Unavail able Ted Guo MD Primary Care Provider [phone] Encounter Details Date Type Department Care Team (Late st Contact Info) Description 11/14/2013 Orders Only [facility] ProviderPhilippe MD [address] [place] [address] Social History Tobacco Use Types Packs/Day Years Used Date Smoking Tobacco: Never Assessed Sex and Gender Information Value Date Recorded Sex Assigned at Not on file 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 Historical Provider [facility] LEENA CHUNG Final Result documented in this encounter Visit Diagnoses Not on filedocumented in this encounter Care Teams Shank Cutter Relationship Specialty Start Date End Date Ted Guo MD PCP - General 06/23/16 07/12/16 Airam Mathews MD [address] [place] [address] PCP - General 07/13/16 09/01/16 Ted Guo MD PCP - General 09/02/16 11/23/16 Unknown, Notinfile PCP - General 11/24/16 12/15/16 Unknown, Notinfile PCP - General 12/16/16 01/03/17 Ted Guo MD PCP - General 01/04/17 Ted Guo MD 07/13/16 documented as of this encounter
--- OUTSIDE RECORDS SUMMARY | 2024-08-10 07:02 | XMS_ITS | Encounter Summary ---
Author Organization [facility] Address [address] [place] [address] Care Team Providers Care Director Of Career Services Name Role Phone Ted Guo MD Primary Care Provider [phone] Airam Mathews MD Primary Care Provider [phone] Ted Guo MD Unavailable [phone] Ted Guo MD Primary Care Provider [phone] Unknown, Notinfile Primary Care Provider Unavail able Unknown, Notinfile Primary Care Provider Unavail able Ted Guo MD Primary Care Provider Encounter Details Date Type Department Care Team (Late st Contact Info) Description 10/13/2013 Orders Only [facility] ProviderPhilippe MD [address] [place] [address] Social History Tobacco Use Types Packs/Day Years Used Date Smoking Tobacco: Never Assessed Sex and Gender Information Value Date Recorded Sex Assigned at Not on file 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 Historical Provider [facility] LEENA CHUNG Final Result documented in this encounter Visit Diagnoses Not on filedocumented in this encounter Care Teams Director Of Career Services Relationship Specialty Start Date End Date Ted Guo MD PCP - General 06/23/16 07/12/16 Airam Mathews MD [address] [place] [address] PCP - General 07/13/16 09/01/16 Ted Guo MD PCP - General 09/02/16 11/23/16 Unknown, Notinfile PCP - General 11/24/16 12/15/16 Unknown, Notinfile PCP - General 12/16/16 01/03/17 Ted Guo MD PCP - General 01/04/17 Ted Guo MD 07/13/16 documented as of this encounter
[2024-08-10 07:25] LABS: Hematocrit 44.5 % (40.0-54.0); Hemoglobin 15.2 g/dL (14.0-18.0); Immature Platelet Fraction Pct 3.1 % (1.0-7.0); Mean Corpuscular HGB Conc 34.2 g/dL (32-36); Mean Corpuscular Hemoglobin 29.7 pg (27.0-31.0); Mean Corpuscular Volume 86.9 fL (78.0-102.0); Mean Platelet Volume 10.2 fl (8.7-11.0); Platelet Count Result 88 K/mm3 (150-420); Red Blood Count 5.12 M/mm3 (4.70-6.10); Red Cell Distribution Width 12.5 % (11.6-14.4); White Blood Count 3.7 K/mm3 (4.8-10.8)
[2024-08-10 07:34] LABS: INR 1.1; Prothrombin Time 11.7 Seconds (9.50-12.1)
[2024-08-10 07:39] LABS: Band Neutrophils Percent 0 % (0-6); Eosinophils Absolute Manual 0.11 K/mm3 (0.02-0.50); Eosinophils Percent Manual 3 % (1-6); Lymphocytes Absolute Manual 1.18 K/mm3 (1.1-4.5); Lymphocytes Percent Manual 32 % (18-44); Monocytes Absolute Manual 0.29 K/mm3 (0.1-0.90); Monocytes Percent Manual 8 % (3-9); Neutrophils Percent Manual 57 % (46-73); Platelet Estimate Decreased (Adequate); Total Cells Counted 100
[2024-08-10 08:01] LABS: Alanine Aminotransferase 45 U/L (6-50); Albumin Level 4.2 g/dL (3.5-5.1); Alkaline Phosphatase 59 U/L (38-126); Anion Gap 4 mmol/L (4-12); Aspartate Amino Transferase 49 U/L (17-59); Bilirubin,Total 1.9 mg/dL (0.2-1.3); Blood Urea Nitrogen 9 mg/dL (9-20); Calcium 8.2 mg/dL (8.4-10.2); Carbon Dioxide 28 mmol/L (22-30); Chloride 109 mmol/L (98-107); Estimated Glomerular Filt Rate > 60; Glucose 114 mg/dL (65-110); Osmolality Calculated 291 mOsm/kg (285-295); Potassium 3.9 mmol/L (3.4-5.0); Sodium 141 mmol/L (137-145); Total Protein 7.3 g/dL (6.3-8.2)
== END 2024-08-10 06:58 | disposition home or self-care (01) ==
LOC: CHSIMG 07:00
PROVIDERS: PCP Internal Medicine; Visit Provider Nurse Practitioner
DX: K74.69 Other cirrhosis of liver (principal); K75.81 Nonalcoholic steatohepatitis (NASH)
CPT/HCPCS: 36415; 76705; 80053; 82105; 85025; 85055; 85610

== ENCOUNTER 2025-02-16 10:10 | Outpatient (CLI) | payer OTHER, SELFPAY ==
--- OUTSIDE RECORDS SUMMARY | 2025-02-16 10:14 | XMS_ITS | Encounter Summary ---
Author Organization [facility] Address [facility] [facility] [place] [address] Care Team Providers Care Brick Baker Name Role Phone Ted Guo MD Primary Care Provider [phone] Rachel Ziegler RN Unavailable Unavailable Cassi Bose SPEECH CORRECTION CONSULTANT-SENIOR PRICING ANALYST Unavailable [phone] Encounter Details Date Type Department Care Team (Late st Contact Info) Description 03/05/2020 Postop Outreach [facility] [address] [place] [address] Saranya Blackman RN Social History Tobacco Use Types Packs/Day Years Used Date Smoking Tobacco: Never Smokeless Tobacco: Never Sex and Gender Information Value Date Recorded Sex Assigned at Not on file Legal Sex Male 5:11 AM 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 SERVICE ASSOCIATE Gender Identity Not on file Sexual Orientation Not on file documented as of this encounter Plan of Treatment Upcoming Encounters Date Type Department Care Team (Late Contact Info) Description 03/01/2025 3:30 PM CUSTOMER SERVICE ASSOCIATE Office Visit [facility] [address] [facility], [place] [address] Cassi Bose, SPEECH CORRECTION CONSULTANT-SENIOR PRICING ANALYST [address] [place] [address] [address] [place] [address] documented as of this encounter Goals Goal Patient Goal Type Associated Problems Recent Progress Patient-Stated? Author Medication Management General On track( 025 3:28 PM CDT) No Rosa Maria Pearl, RN Note: Expected end date: Ongoing Interventions: Take all medications as prescribed Let your doctor know right away about any changes in your medications Make sure to request a refill of your medication at least one week prior to your last dose documented as of this encounter Visit Diagnoses Not on filedocumented in this encounter Care Teams Brick Baker Relationship Specialty Start Date End Date Ted Guo MD [address] [place], [place] [address] PCP - General 01/07/20 Rachel Ziegler, RN Registered Nurse Hepatology 04/25/24 Cassi Bose, SPEECH CORRECTION CONSULTANT-SENIOR PRICING ANALYST [address] [place] [address] Nurse Practitioner Hepatology 05/03/24 documented as of this encounter
--- OUTSIDE RECORDS SUMMARY | 2025-02-16 10:14 | XMS_ITS | Patient Health Record ---
Author Organization [facility] Address [address] [place] [address] [place] Avina [address] Care Team Providers Care Machine Baster Name Role Phone MATT ZAMORA, JINA Primary Care Provider Unavaila Johan Bosch Unavailable [phone] ANNA CALZADA MD Unavailable Unavailable ALLERGIES Allergen [...] Once a day for 30 day(s) Active PROBLEMS Problem Type ICD Code Onset Dates Problem Status W/U Status Risk SNOMED Code Notes Problem Fear of injections and transfusions (F40.231) Active confirmed Fear of medical treatment (489455453) Problem Spondylosis without myelopathy or radiculopathy, 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 Cervical spondylosis without myelopathy (226863743) Problem Spondylosis without myelopathy or radiculopathy, 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 Cervical spondylosis without myelopathy (785527150) Problem Radiculopathy, cervical region (M54.12) Active confirmed Cervical radiculopathy (37759623) Problem 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) Active confirmed Spinal stenosis in cervical region (51319440) Problem Myalgia of auxiliary muscles, head and neck (M79.12) Active confirmed PLAN OF TREATMENT No Information Insurance Providers Payer Name Payer Address Payer Phone Subscriber Number Group Number Insured Name Patient Relationship to Insured Coverage Start Date Coverage End Date A[employer] [address] [address] [facility] [place] [address] [phone] [id number] KAREN YIP Self - patient is the insured MEDICAL (GENERAL) HISTORY Medical History History ICD Code Hypertension Diabetes Surgical History Surgery Date(Month/Year) Bilateral carpal tunnel release Cholecystectomy Right shoulder rotator cuff repair 3
--- OUTSIDE RECORDS SUMMARY | 2025-02-16 10:14 | XMS_ITS | Clinical Summary ---
Author Organization 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 INSTALLER Gender Identity Not on file Sexual Orientation Not on file Last Filed Vital Signs Vital Sign Reading Time Taken Comments Blood Pressure 130/94 05/26/2016 2:11 PM PLASTIC PANEL INSTALLER Pulse 92 05/26/2016 2:11 PM PLASTIC PANEL INSTALLER Temperature - - Respiratory Rate - - Oxygen Saturation - - Inhaled Oxygen Concentration - - Weight 146 kg (321 lb 12.8 oz) 05/26/2016 2:11 P M PLASTIC PANEL INSTALLER Height 182.9 cm (6') 05/26/2016 2:11 PM PLASTIC PANEL INSTALLER Body Mass Index 43.64 05/26/2016 2:11 PM PLASTIC PANEL INSTALLER Plan of Treatment Health Maintenance Due Date Last Done Comments Annual Physical 08/10/1986 Hepatitis C 08/10/2001 DTaP, Tdap and Td Vaccines ( 1 - Tdap) 08/10/2002 Hepatitis B Vaccines (1 of 3 - 19+ 3-dose series) 08/10/2002 HPV Vaccines (1 - 3-dose SCD M series) 08/10/2010 COVID-19 Vaccine ( - 2024-2 6 season) 2024 Influenza Adult (#1) 2024 Hepatitis A Vaccines Aged Out No long er eligible based on patient's age to complete this topic Meningococcal B Vaccine Aged Out No l onger eligible based on patient's age to complete this topic Meningococcal Vaccine Aged Out No nayana rahat eligible based on patient's age to complete this topic Pneumococcal Vaccine: Pediat rics (0 to 5 Years) and At-Risk Patients (6 to 49 Years) Aged Out No longer eligible b ased on patient's age to complete this topic RSV Immunizations Under 20 Months Aged Out No longer eligible based on patient's age to complete this topic Insurance AETNA Care Teams Facility Environmental Technician Relationship Specialty Start Date End Date Ted Guo MD [address] [place] [id number] PCP - General INTERNAL MEDICINE 04/20/22
--- OUTSIDE RECORDS SUMMARY | 2025-02-16 10:14 | XMS_ITS | Encounter Summary ---
Author Organization [facility] Address [address] [place] [address] Care Team Providers Care Freight Loading Supervisor Name Role Phone Ted Guo MD Primary Care Provider [phone] Airam Mathews MD Primary Care Provider [phone] Ted Guo MD Unavailable [phone] Ted Guo MD Primary Care Provider [phone] Unknown, Notinfile Primary Care Provider Unavail able Unknown, Notinfile Primary Care Provider Unavail able Ted Guo MD Primary Care Provider [phone] Encounter Details Date Type Department Care Team (Late st Contact Info) Description 10/24/2013 Orders Only [facility] ProviderPhilippe MD [address] [place] [address] Social History Tobacco Use Types Packs/Day Years Used Date Smoking Tobacco: Never Assessed Sex and Gender Information Value Date Recorded Sex Assigned at Not on file 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
--- OUTSIDE RECORDS SUMMARY | 2025-02-16 10:14 | XMS_ITS | Encounter Summary ---
Author Organization [facility] Address [address] [facility] [address] [place] [address] Care Team Providers Care Financial Analysis Manager Name Role Phone Ted Guo MD Primary Care Provider [phone] Airam Mathews MD Primary Care Provider [phone] Ted Guo MD Unavailable [phone] Ted Guo MD Primary Care Provider [phone] Unknown, Notinfile Primary Care Provider Unavail able Unknown, Notinfile Primary Care Provider Unavail able Ted Guo MD Primary Care Provider [phone] Encounter Details Date Type Department Care Team (Late st Contact Info) Description 03/01/2014 Orders Only [facility] ProviderPhilippe MD [address] [place] [address] Social History Tobacco Use Types Packs/Day Years Used Date Smoking Tobacco: Never Assessed Sex and Gender Information Value Date Recorded Sex Assigned at Not on file 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
--- OUTSIDE RECORDS SUMMARY | 2025-02-16 10:14 | XMS_ITS | Clinical Summary ---
Author Organization [facility] [address] Address [address] [place] [address] Care Team Providers Care Mortgage Loan Counselor Name Role Phone Ted Guo MD Unavailable [phone] Ted Guo MD Primary Care Provider [phone] Allergies Active Allergy Reactions Criticality Noted Date [...] Hyperlipidemia Hx Other Medical Hx of sleep press secretary ea Hx Other Medical Hypospadias vanessa rajesh [...] on file Legal Sex Male 1:12 AM COUNSELOR EDUCATION PROFESSOR Gender Identity Not on file Sexual Orientation Not on file Last Filed Vital Signs Vital Sign Reading Time Taken Comments Blood Pressure 137/82 03/31/2018 11:47 AM COUNSELOR EDUCATION PROFESSOR Pulse 96 03/31/2018 11:47 AM COUNSELOR EDUCATION PROFESSOR Temperature - - Respiratory Rate - - Oxygen Saturation 96% 01/25/2018 12:57 PM COUNSELOR EDUCATION PROFESSOR Inhaled Oxygen Concentration - - Weight 156 kg (344 lb) 03/31/2018 11:47 AM COUNSELOR EDUCATION PROFESSOR Height 182.9 cm (6') 03/31/2018 11:47 AM COUNSELOR EDUCATION PROFESSOR Body Mass Index 46.65 03/31/2018 11:47 AM COUNSELOR EDUCATION PROFESSOR Plan of Treatment Not on file Insurance AETNA [facility] PPO AETNA [employer] [place] HMO/POS Care Teams Mortgage Loan Counselor Relationship Specialty Start Date End Date Ted Guo MD [facility] - General 01/04/17 Ted Guo MD 07/13/16
--- OUTSIDE RECORDS SUMMARY | 2025-02-16 10:14 | XMS_ITS | Encounter Summary ---
Author Organization [facility] Address [address] [facility] [address] [place] [address] Care Team Providers Care Cross Country And Track And Field Coach Name Role Phone Ted Guo MD Primary Care Provider [phone] Airam Mathews MD Primary Care Provider [phone] Ted Guo MD Unavailable [phone] Ted Guo MD Primary Care Provider [phone] Unknown, Notinfile Primary Care Provider Unavail able Unknown, Notinfile Primary Care Provider Unavail able Ted Guo MD Primary Care Provider [phone] Encounter Details Date Type Department Care Team (Late st Contact Info) Description 10/13/2013 Orders Only [facility] ProviderPhilippe MD [address] [place] [address] Social History Tobacco Use Types Packs/Day Years Used Date Smoking Tobacco: Never Assessed Sex and Gender Information Value Date Recorded Sex Assigned at Not on file 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
--- OUTSIDE RECORDS SUMMARY | 2025-02-16 10:14 | XMS_ITS | Encounter Summary ---
Author Organization [facility] Healthcare Address [address] [place] [address] Care Team Providers Care Dinkey Operator Name Role Phone Ted Guo MD Unavailable [phone] Ted Guo MD Primary Care Provider [phone] Encounter Details Date Type Department Care Team (Late st Contact Info) Description 03/19/2017 [place] Only [facility] [place] [address] [place] [id number] Scanning, Provider Social History Tobacco Use Types Packs/Day Years Used Date Smoking Tobacco: Never Alcohol Use Standard Drinks/Week Comments No 0 (1 standard drink = 0.6 oz pur e alcohol) Sex and Gender Information Value Date Recorded Sex Assigned at Not on file Legal Sex Male 1:12 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 Gender Identity Not on file Sexual Orientation Not on file documented as of this encounter Plan of Treatment Not on file documented as of this encounter Procedures Procedure Name Priority Date/Time Associated Diagnosis Comments SCAN - RADIOLOGY/IMAGING 03/19/2017 documented in this encounter Results * SCAN - RADIOLOGY/IMAGING (03/19/2017) Anatomical Region Laterality Modality Other us Provider Scanning Final Result documented in this encounter Visit Diagnoses Not on filedocumented in this encounter Care Teams Dinkey Operator Relationship Specialty Start Date End Date Ted Guo MD PCP - General 01/04/17 Ted Guo MD 07/13/16 documented as of this encounter
--- OUTSIDE RECORDS SUMMARY | 2025-02-16 10:14 | XMS_ITS | Encounter Summary ---
Author Organization [facility] Healthcare Address [address] [place] [address] Care Team Providers Care Stock Preparation Operator Name Role Phone Airam Mathews MD Primary Care Provider [phone] Ted Guo MD Unavailable [phone] Ted Guo MD Primary Care Provider [phone] Unknown, Notinfile Primary Care Provider Unavail able Unknown, Notinfile Primary Care Provider Unavail able Ted Guo MD Primary Care Provider [phone] Encounter Details Date Type Department Care Team (Late st Contact Info) Description 07/23/2016 Orders Only [facility] [place] Health Information Management [address] [place] [address] Scanning, Provider Social History Tobacco Use Types Packs/Day Years Used Date Smoking Tobacco: Never Alcohol Use Standard Drinks/Week Comments No 0 (1 standard drink = 0.6 oz pur e alcohol) Sex and Gender Information Value Date Recorded Sex Assigned at Not on file Legal Sex Male 1:12 AM 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 STRAIGHTENING ROLL OPERATOR Gender Identity Not on file Sexual Orientation Not on file documented as of this encounter Plan of Treatment Not on file documented as of this encounter Procedures Procedure Name Priority Date/Time Associated Diagnosis Comments SCAN - NEUROLOGY 07/23/2016 documented in this encounter Results * SCAN - NEUROLOGY (07/23/2016) Anatomical Region Laterality Modality Other us Provider Scanning Final Result documented in this encounter Visit Diagnoses Not on filedocumented in this encounter Care Teams Stock Preparation Operator Relationship Specialty Start Date End Date Airam Mathews MD [address] [place] [address] PCP - General 07/13/16 09/01/16 Ted Guo MD [address] [place] [address] PCP - General 09/02/16 11/23/16 Unknown, Notinfile PCP - General 11/24/16 12/15/16 Unknown, Notinfile PCP - General 12/16/16 01/03/17 Ted Guo MD [address] [place] [address] PCP - General 01/04/17 Ted Guo MD [address] [place] [address] 07/13/16 documented as of this encounter
--- OUTSIDE RECORDS SUMMARY | 2025-02-16 10:14 | XMS_ITS | Encounter Summary ---
Author Organization [facility] Address [address] [facility] [address] [place] [address] Care Team Providers Care Drum Worker Name Role Phone Ted Guo MD Primary Care Provider [phone] Airam Mathews MD Primary Care Provider [phone] Ted Guo MD Unavailable [phone] Ted Guo MD Primary Care Provider [phone] Unknown, Notinfile Primary Care Provider Unavail able Unknown, Notinfile Primary Care Provider Unavail able Ted Guo MD Primary Care Provider [phone] Encounter Details Date Type Department Care Team (Late st Contact Info) Description 11/14/2013 Orders Only [facility] ProviderPhilippe MD [address] [place] [address] Social History Tobacco Use Types Packs/Day Years Used Date Smoking Tobacco: Never Assessed Sex and Gender Information Value Date Recorded Sex Assigned at Not on file 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
--- OUTSIDE RECORDS SUMMARY | 2025-02-16 10:14 | XMS_ITS | Encounter Summary ---
Author Organization [facility] Address [facility] [place] [address] Care Team Providers Care Paunch Trimmer Name Role Phone Ted Guo MD Primary Care Provider [phone] Rachel Ziegler RN Unavailable Unavailable Cassi Bose PURCHASE ANALYST-DIRECTOR OF FIELD COORDINATION Unavailable [phone] Encounter Details Date Type Department Care Team (Late Contact Info) Description 01/12/2020 Telephone [facility] ID [id number] [place] [id number] Claudia Hernandez, SPEECH PATHOLOGIST Social History Tobacco Use Types Packs/Day Years Used Date Smoking Tobacco: Never Smokeless Tobacco: Never Sex and Gender Information Value Date Recorded Sex Assigned at Not on file 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 Gender Identity Not on file Sexual Orientation Not on file documented as of this encounter Plan of Treatment Upcoming Encounters Date Type Department Care Team (Late Contact Info) Description 03/01/2025 3:30 PM TECHNICIAN TERMINAL AND REPEATER Office Visit [facility] [address] [place] [id number] Cassi Bose, PURCHASE ANALYST-DIRECTOR OF FIELD COORDINATION [facility] 3[facility] [place], [place] [id number] documented as of this encounter Goals Goal [...] on filedocumented in this encounter Care Teams Paunch Trimmer Relationship Specialty Start Date End Date Ted Guo MD [address] [place] [address] PCP - General 01/07/20 Rachel Ziegler, RN Registered Nurse Hepatology 04/25/24 Cassi Bose, PURCHASE ANALYST-DIRECTOR OF FIELD COORDINATION [address] [place] [address] Nurse Practitioner Hepatology 05/03/24 documented as of this encounter
[2025-02-16 10:34] LABS: Hematocrit 45.1 % (40.0-54.0); Hemoglobin 15.8 g/dL (14.0-18.0); Immature Granulocyte Percent A 0.5 % (0.0-0.0); Immature Platelet Fraction Pct 3.6 % (1.0-7.0); Lymphocytes Absolute Auto 1.39 K/mm3 (1.10-4.50); Mean Corpuscular HGB Conc 35.0 g/dL (32-36); Mean Corpuscular Hemoglobin 30.5 pg (27.0-31.0); Mean Corpuscular Volume 87.1 fL (78.0-102.0); Nucleated Red Blood Cells Absolute Auto 0.00 K/mm3 (0.00-0.00); Nucleated Red Blood Cells Perc 0.0 % (0-0.0); Platelet Count Result 80 K/mm3 (150-420); Red Blood Count 5.18 M/mm3 (4.70-6.10); White Blood Count 4.1 K/mm3 (4.8-10.8)
[2025-02-16 10:44] LABS: INR 1.1; Prothrombin Time 12.3 Seconds (9.50-12.1)
[2025-02-16 10:45] LABS: Hemoglobin A1C 5.9 % (<5.7)
[2025-02-16 10:59] LABS: Alanine Aminotransferase 71 U/L (6-50); Albumin Level 4.5 g/dL (3.5-5.1); Alkaline Phosphatase 66 U/L (38-126); Anion Gap 8 mmol/L (4-12); Aspartate Amino Transferase 78 U/L (17-59); Bilirubin,Total 2.4 mg/dL (0.2-1.3); Blood Urea Nitrogen 7 mg/dL (9-20); Calcium 8.9 mg/dL (8.4-10.2); Carbon Dioxide 30 mmol/L (22-30); Chloride 106 mmol/L (98-107); Cholesterol 87 mg/dL (0-200); Estimated Glomerular Filt Rate > 60; Glucose 117 mg/dL (65-110); HDL Direct 27 mg/dL; Osmolality Calculated 297 mOsm/kg (285-295); Potassium 4.3 mmol/L (3.4-5.0); Sodium 144 mmol/L (137-145); Total Protein 7.9 g/dL (6.3-8.2); Triglycerides 227 mg/dL (<150)
[2025-02-16 11:31] LABS: Thyroid Stimulating Hormone 2.000 uIU/mL (0.465-4.680)
== END 2025-02-16 10:11 | disposition home or self-care (01) ==
PROVIDERS: PCP Internal Medicine; Visit Provider Nurse Practitioner
DX: I10 Essential (primary) hypertension (principal); E78.5 Hyperlipidemia, unspecified; E11.65 Type 2 diabetes mellitus with hyperglycemia; K75.81 Nonalcoholic steatohepatitis (NASH); K74.69 Other cirrhosis of liver
CPT/HCPCS: 36415; 80053; 80061; 82105; 83036; 84443; 85025; 85055; 85610

== ENCOUNTER 2025-02-23 07:27 | Outpatient (CLI) | payer OTHER, SELFPAY ==
--- NOTE | ~2025-02-23 | US_ITS ---
ULTRASOUND ABDOMEN LIMITED (RIGHT UPPER QUADRANT) Clinical History: cirrhosis of the liver Comparison: Right upper quadrant ultrasound 08/10/2024 Technique: Right upper quadrant sonography Findings: Liver: Enlarged. Nodular contour. Heterogeneous echotexture. No intrahepatic biliary ductal dilatation. Normal hepatopedal flow main portal vein. No discrete hepatic mass identified. Common Duct: 7 mm. Gallbladder: Removed. Pancreas: Obscured by bowel gas. IMPRESSION: 1. Cirrhosis. No discrete hepatic mass identified. 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
== END 2025-02-23 07:28 | disposition home or self-care (01) ==
LOC: CHSIMG 07:30
PROVIDERS: PCP Internal Medicine; Visit Provider Nurse Practitioner
DX: K74.69 Other cirrhosis of liver (principal); K75.81 Nonalcoholic steatohepatitis (NASH)
CPT/HCPCS: 76705